=== PATIENT | female | born 1940 | race Caucasian/White ===

== ENCOUNTER 2020-06-23 07:16 | Outpatient (CLI) | payer OTHER, SELFPAY ==
--- NOTE | 2020-07-27 08:34 | WPDHOMESLEEP ---
Sleep Study - Home Unattended Date of Study: 06/23/20 Ordering Provider: Norris Up MD Interpreting Physician: Estrella Agosto MD Home Sleep Study Type: Apnea Link Air Height: 1.65 m Weight: 115.666 kg Body Mass Index: 42.4 Neck Circumference (inches): 17.5 Reserve: 9 Reason for Sleep Study difficulty falling asleep and staying asleep Sleep History Maude Arias is an 79 year-old female with a difficulty falling asleep with frequent awakenings during the night. She must get up out of the bed at 3:00 a.m. frequently. She often sleeps in a recliner. She has excessive daytime sleepiness. There is a family history of sleep issues with her brother having the feeling of wiggly legs at night, and he also sleeps in a recliner. She occasionally snores, although it is rarely loud enough that others complain about it. She does not awaken at night with heartburn, belching or coughing. She does not awaken from sleep feeling short of breath. She frequently has trouble sleeping if she has a cold. She does not gasp for breath at night. She occasionally has breathing problems observed by others. She does not sweat excessively at night are noticed her heart pounding or beating irregularly at night. She frequently falls asleep during the day but never involuntarily or while driving. She does not fall asleep during physical effort. She does not have loss of muscle tone with strong emotion. She occasionally has daytime difficulties due to excessive sleepiness. 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 She does not feel paralyzed on waking or falling asleep. She occasionally has vivid dreamlike scenes upon awakening or falling asleep. She has never for a to go to sleep. She rarely has nightmares. She occasionally remembers her dreams. She frequently has racing thoughts through her mind. She occasionally feels sad or depressed. Very rarely does she feel anxiety. She does not have muscular tension or noticed part of her body jerking. She rarely kicks at night. She does not have crawling and aching feelings in her legs nor does she have any leg pain at night. She does not have morning jaw pain. She occasionally grinds her teeth at night. She occasionally has bothered by pain during the day. She frequently is awakened by pain at night and wakes up feeling stiff in the morning. She does not wake up with sore achy muscles. She frequently wakes up with pain in the neck and spine. Normal bedtime is 12 midnight, falling asleep within 15-30 minutes. She typically wakes 2 or 3 times at night and stays awake for anywhere from 5 minutes to 2 hours. While awake she sits in a recliner, sometimes reads, falls asleep again. She wakes in the morning at 7:00 a.m.. Weekend schedule is the same. She does take naps. Short naps are not refreshing. She only occasionally wakes up feeling refreshed. Habits: Never smoked tobacco. One caffeinated beverage a day. No alcohol or recreational drugs. ON LICENSE OF [facility] Past Medical History Medical History (Updated 07/27/20 @ 08:42 by Estrella Agosto MD) Chronic anticoagulation Chronic diastolic heart failure Chronic fatigue Coronary artery disease Dyslipidemia associated with type 2 diabetes mellitus Hypertension associated with diabetes Surgical History Surgical History (Updated 07/27/20 @ 08:41 by Estrella Agosto MD) Status post coronary artery stent placement Family History Family History Mother Diabetes mellitus Acute myocardial infarction Sibling Family history of cardiovascular disease Family history of cardiac disorder Father Acute myocardial infarction Social History Social History Smoking status: Never smoker Second hand tobacco smoke exposure: No Alcohol intake: never Medications Home Medications Medication Instructions Recorded Confirmed Type aspirin 81 mg tablet,delayed 8
[2020-07-27 08:59] VITALS: BMI 42.4
== END 2020-06-23 07:17 | disposition home or self-care (01) ==
LOC: ANHCSM 07:17
PROVIDERS: PCP Family Medicine; Visit Provider Internal Medicine Cardiovascular Disease
DX: G47.33 Obstructive sleep apnea (adult) (pediatric) (principal)
CPT/HCPCS: 95806

== ENCOUNTER → 2020-08-17 10:07 | Outpatient (REF) | payer OTHER, SELFPAY | LOC: ANHLAB 10:07 | PROVIDERS: PCP Physician Assistant; Visit Provider Nurse Practitioner | DX: C44.329 Squamous cell carcinoma of skin of other parts of face (principal) | CPT/HCPCS: 88305; 88331 ==

== ENCOUNTER 2022-05-05 16:22 | Outpatient (CLI) | payer OTHER, SELFPAY ==
--- NOTE | ~2022-05-05 | XR_ITS ---
XR lumbar spine min 4V, XR sacroiliac joints min 3V 05/05/2022 16:57 Indication: Spondylosis with myelopathy Procedure: 6 views lumbar spine and 5 views of the sacroiliac joints. Comparison: No prior studies for comparison. Findings: There is severe degenerative disc disease at all lumbar levels. There is levoscoliosis. No acute fracture or traumatic malalignment. There is atherosclerosis. There are amorphous calcification s in the pelvis, likely due to fibroid changes. There are symmetric degenerative changes of the sacro iliac joints. No acute fracture or traumatic malalignment. Impression: 1: Severe lumbar spondylosis with levoscoliosis. 2: Moderate bilateral symmetric degenerative changes of the sacroiliac joints. Reviewed, dictated and finalized at location B. Impression: 1: Severe lumbar spondylosis with levoscoliosis. 2: Moderate bilateral symmetric degenerative changes of the sacroiliac joints. Impression: 1: Severe lumbar spondylosis with levoscoliosis. 2: Moderate bilateral symmetric degenerative changes of the sacroiliac joints.
== END 2022-05-05 16:23 | disposition home or self-care (01) ==
LOC: ANHIMG 16:30
PROVIDERS: PCP Family Medicine; Visit Provider Family Medicine
DX: M46.1 Sacroiliitis, not elsewhere classified (principal); M47.816 Spondylosis without myelopathy or radiculopathy, lumbar region; M47.896 Other spondylosis, lumbar region; M53.3 Sacrococcygeal disorders, not elsewhere classified
CPT/HCPCS: 72110; 72202

== ENCOUNTER 2022-10-11 15:02 | Outpatient (CLI) | payer OTHER, SELFPAY ==
--- NOTE | ~2022-10-11 | XR_ITS ---
EXAMINATION: XR chest 2V DATE: 10/11/2022 15:23 INDICATION: This of breath. Nonhealing leg wound. TECHNIQUE: frontal and lateral views of the chest were obtained. COMPARISON: Chest radiograph dated 07/03/17 FINDINGS: Chronic mild elevation the left hemidiaphragm. Unchanged left paracardial fat pad extending between t he apex of the heart and the lateral chest wall. No focal airspace opacities, pulmonary edema, pleura l effusion or pneumothorax. Cardiomegaly. Reverse right total shoulder arthroplasty. IMPRESSION: 1. Cardiomegaly. No acute cardiopulmonary disease. Reviewed, dictated and finalized at location A. [employer]
== END 2022-10-11 15:03 | disposition home or self-care (01) ==
LOC: ANHIMG 15:05
PROVIDERS: PCP Family Medicine; Visit Provider Physician Assistant Medical
DX: R06.09 Other forms of dyspnea (principal); I51.7 Cardiomegaly
CPT/HCPCS: 71046

== ENCOUNTER 2022-10-14 11:50 | Outpatient (RCR) | payer OTHER, SELFPAY ==
[2022-10-14 15:08] VITALS: BMI 46.4
== END 2022-11-21 09:39 | disposition home or self-care (01) ==
LOC: ANHWOC 11:50
PROVIDERS: PCP Family Medicine; Visit Provider Internal Medicine Cardiovascular Disease
DX: S81.802A Unspecified open wound, left lower leg, initial encounter (principal); R60.0 Localized edema
CPT/HCPCS: 99212; G0463

== ENCOUNTER 2022-10-18 09:10 | Outpatient (CLI) | payer OTHER, SELFPAY ==
--- NOTE | ~2022-10-18 | US_ITS ---
Duplex Sonography of the right extremity: Indication: Pain Findings: Sagittal and transverse B-mode images as well as color-flow imaging were performed on the r ight femoral and popliteal veins. B-mode examination was done without and with compression in the tr ansverse plane. There is good visualization of the common femoral, proximal profunda femoral, superf icial femoral, greater saphenous, and popliteal veins. Normal flow was seen on color-flow imaging. N ormal compressibility was demonstrated. Impression: No evidence of deep vein thrombosis involving the right femoral, greater saphenous, superficial femor al, or popliteal veins. Reviewed, dictated and finalized at location M. Impression: No evidence of deep vein thrombosis involving the right femoral, greater saphen ous, superficial femoral, or popliteal veins.
== END 2022-10-18 09:11 | disposition home or self-care (01) ==
PROVIDERS: PCP Family Medicine; Visit Provider Family Medicine
DX: M79.604 Pain in right leg (principal); R60.9 Edema, unspecified
CPT/HCPCS: 93971

== ENCOUNTER 2023-03-23 15:06 | Outpatient (CLI) | payer OTHER, SELFPAY ==
--- NOTE | ~2023-03-23 | US_ITS ---
EXAMINATION: US renal BI DATE: 03/23/2023 15:52 INDICATION: N18.4 - Chronic kidney disease, stage 4 (severe) TECHNIQUE: Multiple grayscale and Doppler ultrasound images of the kidneys were obtained. COMPARISON: None. FINDINGS: The right kidney measures 9.8 x 5.1 x 5.4 cm. The left kidney measures 10.1 x 4.3 x 5.8 cm. The kidne ys demonstrate mildly increased parenchymal echogenicity. 1.7 cm left lower pole simple cyst. There i s no hydronephrosis. The bladder is partially distended with a 7 mm wall. IMPRESSION: Increased renal parenchymal echogenicity as can be seen with medical renal disease. Cystitis versus bladder wall thickening from incomplete distention. Reviewed, dictated and finalized at location K. IMPRESSION: Increased renal parenchymal echogenicity as can be seen with medical renal dise ase. Cystitis versus bladder wall thickening from incomplete distention.
== END 2023-03-23 15:07 | disposition home or self-care (01) ==
PROVIDERS: PCP Family Medicine; Visit Provider Internal Medicine Nephrology
DX: N18.4 Chronic kidney disease, stage 4 (severe) (principal)
CPT/HCPCS: 76775

== ENCOUNTER 2023-03-27 11:40 | Inpatient (IN) | payer OTHER, SELFPAY ==
[2023-03-27] VITALS (14 sets, daily range): BP systolic 106–157; BP diastolic 50–124; PULSE 82–114; RESP 16–28; TEMP 36.4; O2SAT 70–100; BMI 50.9
--- NOTE | ~2023-03-27 | XR_ITS ---
EXAMINATION: XR chest 1V portable DATE: 04/01/2023 08:14 INDICATION: Hypoxia TECHNIQUE: frontal view of the chest was obtained. COMPARISON: Chest radiograph dated 10/11/2022 FINDINGS: Chronic mild elevation of the left hemidiaphragm. Cardiomegaly with prominent left paracardial fat pa d. Increasing pulmonary vascular congestion and mild opacities at the bilateral lower lung zones whic h represent mild pulmonary edema, atelectasis or pneumonia. No pneumothorax. Reverse right total shou lder arthroplasty. IMPRESSION: 1. Increasing opacities in bilateral lower lung zones which could represent mild pulmonary edema, ate lectasis or pneumonia. 2. Cardiomegaly. Reviewed, dictated and finalized at location A. IMPRESSION: 1. Increasing opacities in bilateral lower lung zones which could represent mil d pulmonary edema, atelectasis or pneumonia. 2. Cardiomegaly.
--- NOTE | ~2023-03-27 | XR_ITS ---
EXAMINATION: XR hip LT 2V w AP pelvis INDICATION: Left hip pain TECHNIQUE: AP view the pelvis and two views of the left hip are obtained. COMPARISON: 05/05/2022 FINDINGS: Bone alignment is normal. There is no fracture. Calcified atherosclerosis is noted. There a re also calcified uterine fibroids. There is severe lumbar spondylosis. Phleboliths are noted in the pelvis. There is mild osteoarthritis of the hips. IMPRESSION: 1. No acute osseous abnormality. Reviewed, dictated and finalized at location A.
[2023-03-27 14:58] LABS: Basophils Percent Auto 0.3 % (0.2-1.2); Hematocrit 33.3 % (37.0-47.0); Hemoglobin 10.5 g/dL (12.0-15.0); Immature Granulocyte Absolute 0.13 K/mm3 (0.00-0.031); Immature Granulocyte Percent A 1.1 % (0-0.5); Lymphocytes Absolute Auto 1.23 K/mm3 (0.9-3.2); Lymphocytes Percent Auto 10.4 % (18.3-44.2); Mean Corpuscular HGB Conc 31.5 g/dl (32-36); Mean Corpuscular Hemoglobin 32.2 pg (26-34); Mean Corpuscular Volume 102.1 fl (80-100); Mean Platelet Volume 9.6 fl (7.4-10.4); Monocytes Absolute Auto 1.5 K/mm3 (0.1-0.6); Monocytes Percent Auto 12.4 % (2.6-8.5); Neutrophils Percent Auto 75.8 % (45.5-73.1); Platelet Count Result 242 k/mm3 (150-375); Red Blood Count 3.26 M/mm3 (4.2-5.4); White Blood Count 11.8 K/mm3 (4.5-10.0)
[2023-03-27] MEDS: SODIUM CHLORIDE 0.9% IV 1,000 ML 999 ML IV CONT (15:03)
[2023-03-27 15:09] LABS: INR 1.3; Prothrombin Time 17.1 Seconds (11.1-14.7)
[2023-03-27 15:10] LABS: Partial Thromboplastin Time 27.8 SECONDS (22.3-36.8)
[2023-03-27 15:26] LABS: Alanine Aminotransferase 40 U/L (6-35); Albumin Level 3.9 g/dL (3.5-5.1); Alkaline Phosphatase 58 U/L (38-126); Anion Gap 13 mmol/L (8-16); Aspartate Amino Transferase 110 U/L (14-36); Bilirubin,Total 1.3 mg/dL (0.2-1.3); Blood Urea Nitrogen 70 mg/dL (7-17); Calcium 9.5 mg/dL (8.4-10.2); Carbon Dioxide 23 mmol/L (22-30); Chloride 100 mmol/L (98-107); Creatine Kinase 3084 U/L (30-135); Estimated CRCL calculation 17 ml/min; Estimated Glomerular Filt Rate 16; Glucose 550 mg/dL (65-110); Potassium 5.6 mmol/L (3.4-5.0); Sodium 136 mmol/L (137-145)
--- NOTE | 2023-03-27 15:40 | ED.FALL ---
HPI - Fall General Chief Complaint: Fall Stated Complaint: fall yesterday/resolved hip pain Time Seen by Provider: 03/27/23 14:27 History of Present Illness HPI Narrative: Patient is an 82-year-old female who presents ER after having a fall. She was walking out of her shower last night when she slipped and fell directly onto her buttock. She did not strike her back or head. She did not lose consciousness. Due to her pain she was unable to get herself back up off the floor due to pain in her left hip and laid there for prolonged period until today. Patient reports history of chronic kidney disease and Dr. 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 She is anticoagulated on apixaban. No alleviating factors of her pain. Related Data Home Medications Medication Instructions Recorded Confirmed fenofibrate nanocrystallized 145 145 mg PO DAILY 09/25/19 01/24/23 mg tablet metoprolol succinate 100 mg 100 mg PO DAILY 09/25/19 01/24/23 tablet,extended release 24 hr triamterene 75 1 tablet PO DAILY 09/25/19 01/24/23 mg-hydrochlorothiazide 50 mg tablet multivitamin 1 tablet PO DAILY 08/04/20 01/24/23 nitroglycerin 0.4 mg sublingual 0.4 mg sublingual Q5M PRN 08/04/20 01/24/23 tablet (Nitrostat) furosemide 20 mg tablet 10 mg PO QAM 05/05/22 01/24/23 potassium chloride 10 mEq 5 meq PO .every other day 05/30/22 01/24/23 capsule,extended release diphenhydramine 25 1 tablet PO QHS PRN 06/15/22 01/24/23 mg-acetaminophen 500 mg tablet (Tylenol PM Extra Strength) omega-3 1,050 [id number] 1 cap PO DAILY 06/15/22 01/24/23 oil 1,200 mg capsule linaclotide 145 mcg capsule 145 mcg PO DAILY PRN 01/24/23 01/24/23 (Linzess) Allergies Allergy/AdvReac Type Severity Reaction Status Date / Time dexamethasone Allergy Unknown Unknown Verified 01/24/23 14:37 simvastatin Allergy Unknown Unknown Verified 01/24/23 14:37 Review of Systems Review of Systems: All systems reviewed & are unremarkable except as noted in HPI and below Constitutional: Constitutional: Denies chills, Denies fatigue and Denies fever(s) ENT: Denies nasal congestion and Denies sore throat Cardiovascular: Cardiovascular: Denies chest pain, Denies rapid heart rate and Denies radiating jaw, neck or arm pain Respiratory: Respiratory: Denies cough and Denies dyspnea Gastrointestinal: Gastrointestinal: Denies abdominal pain, Denies nausea and Denies vomiting Musculoskeletal: Musculoskeletal: Reports arthralgias and Denies joint swelling Comments: Buttock pain Integumentary/Breasts: Skin/Breast: Denies erythema and Denies rash Neurologic: Denies syncope, Denies headache(s), Denies focal weakness and Denies numbness [facility] Past Medical History Medical History (Updated 03/27/23 @ 17:58 by Hermilo Marroquin MD) Arthritis of right acromioclavicular joint Basal cell carcinoma (BCC) of right cheek Benign hypertension Chronic anticoagulation Chronic deep vein thrombosis Chronic diastolic heart failure Chronic fatigue Chronic kidney disease, stage 4 (severe) Coronary artery disease COVID-19 PEREZ (dyspnea on exertion) Dyslipidemia associated with type 2 diabetes mellitus History of recurrent deep vein thrombosis (DVT) Hyperlipidemia Hypertension associated with diabetes Insulin dependent type 2 diabetes mellitus, controlled Lumbar spondylosis Obstructive sleep apnea Sacroiliitis 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
[2023-03-27] MEDS: INSULIN HUMAN REGULAR (*BKC) 100 UNITS/ML 10 UNITS IV PUSH (15:57)
[2023-03-27] MEDS: HYDROcodone/acetaminophen (*CRX) 5-325 MG TABLET 1 TAB PO (16:10)
[2023-03-27 16:44] LABS: Glucose Point of Care > 500 mg/dl (65-105)
[2023-03-27] MEDS: SODIUM CHLORIDE 0.9% IV 1,000 ML 150 ML IV CONT (17:07)
--- NOTE | 2023-03-27 20:42 | PM.IMHP ---
H&P: HPI History of Present Illness Date/Time: 03/27/23 20:42 Chief Complaint: fall Narrative: This a 82 year old female patient who sustained a fall last night after getting out of her shower the patient stated that she slipped and fell directly onto her buttocks. The patient was having difficulty getting off the floor this morning and had to scoot on her buttocks to be able to call her neighbor who came over and helped her get dressed. they then called the EMS. The patient stated that she laid on the floor all night long because she was not able to move. The patient does have a history of chronic kidney disease and has been seen by Dr. Leggett. She is on anticoagulation with apixaban. She was given IV fluids and IV insulin times in the emergency room. Her white count 11.8. H&H is 10.5 and 33.3 which appears to be her baseline. Sodium is 136. Potassium 5.6. Creatinine 2.8 which is her baseline and BUN is 70. Her blood sugar was 550 in the emergency room. Hip and pelvis xray?No acute osseous abnormality. total ck is 3084. the patient is being admitted to observation status on 03/27/23. Review of Systems Review of Systems: All systems reviewed & are unremarkable except as noted in HPI and below Constitutional: Constitutional: Reports as per HPI and Reports no additional constitutional complaints Eyes: Eyes: Reports as per HPI and Reports no additional eye complaints ENT: Reports system reviewed and no additional complaints, except as documented and Reports Normal hearing present Cardiovascular: Cardiovascular: Reports no additional cardiovascular complaints Respiratory: Respiratory: Reports no additional respiratory complaints and Reports no additional respiratory complaints Gastrointestinal: Gastrointestinal: Reports as per HPI and Reports no additional gastrointestinal complaints Musculoskeletal: Musculoskeletal: Reports no additional musculoskeletal complaints Integumentary/Breasts: Skin/Breast: Reports system reviewed and no additional complaints, except as docu and Reports as per HPI Neurologic: Reports system reviewed and no additional complaints, except as documented, Reports as per HPI and Reports Normal hearing present Psychiatric: Psychiatric: Reports no additional psychiatric complaints and Reports as per HPI Endocrine: Endocrine: Reports no additional endocrine complaints Hematologic/Lymphatic: Hematologic/Lymphatic: Reports no additional hematologic/lymphatic complaints Allergic/Immunologic: Allergic/Immunologic: Reports no additional allergic/immunologic complaints [facility] Past Medical History Medical History (Updated 03/28/23 @ 00:59 by Michaela Porter NP) Arthritis of right acromioclavicular joint Basal cell carcinoma (BCC) of right cheek Benign hypertension Chronic anticoagulation Chronic deep vein thrombosis Chronic diastolic heart failure Chronic fatigue Chronic kidney disease, stage 4 (severe) Coronary artery disease COVID-19 PEREZ (dyspnea on exertion) Dyslipidemia associated with type 2 diabetes mellitus History of recurrent deep vein thrombosis (DVT) Hyperlipidemia Hypertension associated with diabetes Insulin dependent type 2 diabetes mellitus, controlled Lumbar spondylosis Obstructive sleep apnea No longer uses her cpap Sacroiliitis Squamous cell carcinoma of skin of right bahai Type 2 diabetes mellitus with hyperglycemia, with long-term current use of insulin Type 2 diabetes mellitus with insulin therapy Surgical History Surgical History (Updated 03/28/23 @ 01:01 by Michaela Porter NP) H/O: hysterectomy History of appendectomy History of cardiac catheterization History of knee replacement Bilateral knees History of removal of pigmented skin lesion History of right shoulder replacement Status post coronary artery stent placement Times 3 Family History Family History Mother Diabetes mellitus Acute myocardial inf
--- NOTE | 2023-03-27 21:01 | PC.NURSE ---
patient admitted with fluids infusing to IMU per order
--- NOTE | 2023-03-27 21:09 | ADMGEN ---
This patient, Maude Arias, was admitted to IMU Room 201-01. Patient/family oriented to hospital policies and general routines including ID bracelet, bed and alarms, visiting hours, pain management, procedures, bathroom and other care routines, personal items, smoking policy, room service/diet, and visiting hours. Information on how to activate the Rapid Response Team has been discussed. Patient/Family are encouraged to report perceived risks to care and to ask questions if they do not understand what they are told or what they should do.
[2023-03-27 21:19] LABS: Glucose Point of Care 465 mg/dl (65-105)
[2023-03-27] MEDS: INSULIN GLARGINE (*BKC) 100 UNITS/ML 10 UNITS SUB-Q (22:10)
[2023-03-27] MEDS: INSULIN ASPART (*BKC) 100 UNITS/ML 10 UNITS SUB-Q (22:10)
[2023-03-28] VITALS (16 sets, daily range): BP systolic 113–144; BP diastolic 48–85; PULSE 66–95; RESP 16–22; TEMP 36.1–37; O2SAT 93–100
[2023-03-28] MEDS: SODIUM CHLORIDE 0.9% IV 1,000 ML 150 ML IV CONT ×4 (00:11→23:42)
[2023-03-28 01:27] LABS: Alveolar/Arterial O2 Gradient 41.1 mmHg; Base Excess ABG -3.1 mEq/l (+/-2.0); Fractional Inspired Oxygen 21 %; HCO3 ABG 21.5 mEq/l (22.0-26.0); Oxygen Content ABG 13.6 %vol (16.0-22.0); Oxygen Saturation ABG 92.6 % (95.0-100.0); Oxyhemoglobin 90.8 % THb (90.0-100.0); PCO2 ABG 36.7 mmHg (35.0-45.0); PO2 ABG 64.7 mmHg (80.0-100.0); PO2 FiO2 Ratio Arterial Blood 3.08 %; Site Drawn RIGHT RADIAL; Total Hemoglobin 10.6 g/dL (12.0-18.0); pH ABG 7.385 (7.350-7.450)
[2023-03-28 01:28] LABS: Device ROOM AIR; Modified Allen's Test Pass
[2023-03-28] MEDS: INSULIN ASPART (*BKC) 100 UNITS/ML 10 UNITS SUB-Q (01:46)
[2023-03-28 02:07] LABS: Glucose Point of Care 500 mg/dl (65-105)
[2023-03-28 02:08] LABS: Beta-Hydroxybutyrate/Acetoacetate 0.87 mmol/L (0.02-0.27)
[2023-03-28 02:58] LABS: Glucose Point of Care 486 mg/dl (65-105)
[2023-03-28] MEDS: INSULIN GLARGINE (*BKC) 100 UNITS/ML 40 UNITS SUB-Q (03:30)
[2023-03-28] MEDS: INSULIN ASPART (*BKC) 100 UNITS/ML 15 UNITS SUB-Q (03:31)
[2023-03-28 05:00] LABS: Hematocrit 29.3 % (37.0-47.0); Hemoglobin 9.2 g/dL (12.0-15.0); Mean Corpuscular HGB Conc 31.4 g/dl (32-36); Mean Corpuscular Hemoglobin 32.9 pg (26-34); Mean Corpuscular Volume 104.6 fl (80-100); Mean Platelet Volume 9.8 fl (7.4-10.4); Nucleated Red Blood Cells Perc 0.2 % (0.0-0.2); Platelet Count Result 216 k/mm3 (150-375); Red Cell Distribution Width 13.1 % (11.5-14.5); White Blood Count 9.5 K/mm3 (4.5-10.0)
[2023-03-28 05:01] LABS: Basophils Percent Auto 0.3 % (0.2-1.2); Eosinophils Percent Auto 0.1 % (0-4.4); Lymphocytes Absolute Auto 1.36 K/mm3 (0.9-3.2); Lymphocytes Percent Auto 14.3 % (18.3-44.2); Monocytes Absolute Auto 1.1 K/mm3 (0.1-0.6); Monocytes Percent Auto 11.8 % (2.6-8.5); Neutrophils Absolute Auto 6.9 K/mm3 (1.3-6.7); Neutrophils Percent Auto 72.5 % (45.5-73.1)
[2023-03-28 05:11] LABS: Alanine Aminotransferase 54 U/L (6-35); Albumin Level 3.5 g/dL (3.5-5.1); Alkaline Phosphatase 44 U/L (38-126); Anion Gap 10 mmol/L (8-16); Aspartate Amino Transferase 228 U/L (14-36); Bilirubin,Total 0.8 mg/dL (0.2-1.3); Blood Urea Nitrogen 78 mg/dL (7-17); Calcium 8.3 mg/dL (8.4-10.2); Carbon Dioxide 22 mmol/L (22-30); Chloride 106 mmol/L (98-107); Estimated CRCL calculation 20 ml/min; Estimated Glomerular Filt Rate 18; Glucose 423 mg/dL (65-110); Magnesium 2.3 mg/dL (1.6-2.3); Sodium 138 mmol/L (137-145)
[2023-03-28 05:22] LABS: Hemoglobin A1C 8.2 % (<5.7)
[2023-03-28 05:27] LABS: Creatine Kinase 7542 U/L (30-135)
[2023-03-28 08:19] LABS: Glucose Point of Care 273 mg/dl (65-105)
[2023-03-28] MEDS: INSULIN ASPART (*BKC) 100 UNITS/ML SUB-Q ×3 (09:00→17:05)
[2023-03-28] MEDS: FENOFIBRATE NANOCRYSTALLIZED 145 MG TABLET PO (09:02)
[2023-03-28] MEDS: METOPROLOL SUCCINATE EXT REL 100 MG TABCR PO (09:02)
[2023-03-28] MEDS: OMEGA 3 POLYUNSAT FATTY ACIDS 1 GM CAP 2 GM PO (09:03)
[2023-03-28] MEDS: MULTIVITAMINS THERAPEUTIC TAB (*BKC) 1 TABLET PO (09:03)
[2023-03-28] MEDS: ATORVASTATIN 40 MG TABLET PO (09:03)
[2023-03-28] MEDS: APIXABAN 5 MG TABLET PO ×2 (09:03→20:54)
[2023-03-28] MEDS: traMADol HCL (*CRX) 50 MG TABLET PO (09:04)
[2023-03-28] MEDS: LIDOCAINE 5% PATCH 1 PATCH TRANSDERM (09:27)
[2023-03-28 12:11] LABS: Glucose Point of Care 310 mg/dl (65-105)
[2023-03-28] MEDS: INSULIN ASPART (*BKC) 100 UNITS/ML 6 UNITS SUB-Q (12:20)
[2023-03-28 12:44] LABS: Glucose Point of Care 424 mg/dl (65-105)
--- NOTE | 2023-03-28 14:24 | PM.IMPN ---
Progress Note: A&P Assessment and Plan (1) Rhabdomyolysis: Code(s): M62.82 - Rhabdomyolysis Status: Acute Assessment and Plan: ck 3084 . Please continue to monitor daily. Continue with IV fluids. Monitor renal function (2) Chronic kidney disease, stage 4 (severe): Code(s): N18.4 - Chronic kidney disease, stage 4 (severe) Status: Acute Assessment and Plan: Creatinine 2.8 which is slightly worse than her baseline. She does see the stock cutter here. May consider consulting the stock cutter if no improvement. Continue to monitor renal function daily. Continue with IV fluid Renal ultrasound 03/23/2023Increased renal parenchymal echogenicity as can be seen with medical renal disease. Cystitis versus bladder wall thickening from incomplete distention. Hold diuretics tonight to see if there is any improvement in her renal function. (3) Traumatic ecchymosis of buttock: Code(s): S30.0XXA - Contusion of lower back and pelvis, initial encounter Status: Acute Assessment and Plan: May consider wound care consult if no improvement (4) Type 2 diabetes mellitus with hyperglycemia, with long-term current use of insulin: Code(s): E11.65 - Type 2 diabetes mellitus with hyperglycemia; Z79.4 - USP (current) use of insulin Status: Acute Assessment and Plan: The patient has an extremely high blood sugar at this time. We are covering her with sliding scale insulin. I started her on Lantus as well. Hypoglycemic protocol. check a1c if not done in the last 3 months hold pts own meal time insulins while in hospital (5) History of recurrent deep vein thrombosis (DVT): Code(s): Z86.718 - Personal history of other venous thrombosis and embolism Status: Acute Assessment and Plan: continue with eliquis. renal dose (6) Hyperlipidemia with target LDL less than 100: Code(s): E78.5 - Hyperlipidemia, unspecified Status: Acute Assessment and Plan: atorvastatin Subjective Date/time seen: 03/28/23 14:24 Interval history: 82 year old female patient who sustained a fall last night after getting out of her shower the patient stated that she slipped and fell directly onto her buttocks.? The patient was having difficulty getting off the floor this morning and had to scoot on her buttocks to be able to call her neighbor who came over and helped her get dressed. they then called the EMS.? The patient stated that she laid on the floor all night long because she was not able to move, pt admitted for rhabdomyolysis continue with iv fluids Review of Systems Review of Systems: No specific compliants All systems reviewed & are unremarkable except as noted in HPI and below Exam Const: General: cooperative, healthy appearing, comfortable, no acute distress, well developed, alert, awake, Physically active, average body habitus, well nourished and overweight Nutritional Appearance: average body habitus, well nourished and overweight Orientation/consciousness: oriented to person, oriented to place, oriented to time and patient oriented x3 Limitations: no limitations Objective Data Vital Signs Vital Signs: Vital Signs - 24 hr 03/27/23 14:45 03/27/23 14:46 03/27/23 15:00 Temperature Pulse Rate 90 92 87 Respiratory Rate 22 H 22 H 26 H Blood Pressure 134/97 H Pulse Oximetry 98 99 Oxygen Delivery 03/27/23 15:01 03/27/23 15:15 03/27/23 15:30 Temperature Pulse Rate 90 83 86 Respiratory Rate 16 28 H 24 H Blood Pressure 157/87 H Pulse Oximetry 79 L 80 L Oxygen Delivery 03/27/23 15:31 03/27/23 15:45 03/27/23 16:01 Temperature Pulse Rate 86 82 94 Respiratory Rate 23 H 19 24 H Blood Pressure 144/124 H 106/87 Pulse Oximetry 70 L 98 99 Oxygen Delivery 03/27/23 16:36 03/27/23 21:23 03/27/23 23:25 Temperature 36.4 C 36.4 C Pulse Rate 85 114 H 88 Respiratory Rate 22 H 22 H Blood Pressure 140/64 1
[2023-03-28 16:51] LABS: Glucose Point of Care 233 mg/dl (65-105)
[2023-03-28] MEDS: INSULIN ASPART (*BKC) 100 UNITS/ML 7.5 UNITS SUB-Q (17:04)
--- NOTE | 2023-03-28 17:30 | PM.CNNEP ---
Assessment and Plan Assessment and plan (1) Chronic kidney disease, stage 4 (severe): Code(s): N18.4 - Chronic kidney disease, stage 4 (severe) Status: Chronic Assessment and Plan: baseline creatinine runs ~ 2.0 - 2.5mg/dl in the last year based on outpatient evaluation, due to diabetes, hypertension, vascular disease, and age-related change follows with Dr. 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 Thank you for allowing me to participate in the care of this patient. History of Present Illness Reason for Consult Consult date: 03/28/23 Reason for consult: chronic renal failure and Other (rhabdomyolysis) Chief Complaint Chief complaint: Rhabdomyolysis, CKD, Buttock Contusion, Hyperglyce History of Present Illness Narrative: The patient is an 82-year-old female with a past medical history as outlined below who presented to [facility] Emergency room status post fall. The night before admission, the patient apparently slipped and fell directly on her buttocks. This apparently occurred after she was getting out of her shower. Following the fall, she had significant difficulty getting up and so ended up staying on the floor all night. eventually, the next morning, she was able to ski boot on the floor to get to a phone and called her neighbor for assistance. Her neighbor came over and was able to help her up and got her dressed and subsequently they called EMS. The patient was transferred to the emergency room for further assessment. Workup and evaluation in the emergency room demonstrated the patient to be hemodynamically stable but was somewhat sore from the aforementioned fall. Routine blood test demonstrated labs consistent with her known history of chronic kidney disease and her CBC was unremarkable aside from anemia which is somewhat of a chronic issue. Her potassium was mildly elevated at 5.6 and her CPK was also elevated at 3084. given the constellation of symptoms that led to her presentation to the ER and laboratory findings, she was admitted the hospital for further evaluation and therapy. Since her admission, she has been receiving IV fluids for treatment of her mild rhabdomyolysis and her CPK level actually has risen despite this intervention. Her kidney function has so far remain relatively stable. Renal consultation was requested due to her chronic kidney disease and rhabdomyolysis. The patient normally follows Dr. Mike Leggett for management of her chronic kidney disease with her baseline creatinine normally running around 2.0 - 2.5 mg/dL consistent with chronic kidney disease stage 4. her chronic kidney disease is felt to be secondary to her diabetes, hypertension, vascular disease, and age-related change based on outpatient evaluation. Her renal function also fluctuates to the assess the of diuretic therapy to maintain her volume status. Currently, at the time my visit, the patient is not appear to be in acute distress. Review of Systems Review of Systems: As per HPI. [facility] Past Medical History Medical History (Updated 04/06/23 @ 20:21 by Caitie Gardner
[2023-03-28 20:34] LABS: Glucose Point of Care 211 mg/dl (65-105)
[2023-03-28] MEDS: INSULIN GLARGINE (*BKC) 100 UNITS/ML 44 UNITS SUB-Q (20:54)
[2023-03-28] MEDS: TOLNAFTATE 1% POWDER 45 GM BTL 1 APPLIC TOPICAL (20:56)
[2023-03-28] MEDS: ACETAMINOPHEN 325 MG TABLET 650 MG PO (23:41)
[2023-03-29] VITALS (15 sets, daily range): BP systolic 116–158; BP diastolic 41–93; PULSE 52–99; RESP 18–20; TEMP 36.4–36.8; O2SAT 94–100
[2023-03-29] MEDS: SODIUM CHLORIDE 0.9% IV 1,000 ML 150 ML IV CONT ×3 (06:09→20:10)
[2023-03-29 07:37] LABS: Albumin Level 2.7 g/dL (3.5-5.1); Anion Gap 7 mmol/L (8-16); Blood Urea Nitrogen 73 mg/dL (7-17); Calcium 7.8 mg/dL (8.4-10.2); Carbon Dioxide 23 mmol/L (22-30); Chloride 110 mmol/L (98-107); Creatine Kinase 3086 U/L (30-135); Estimated CRCL calculation 20 ml/min; Estimated Glomerular Filt Rate 18; Glucose 149 mg/dL (65-110); Potassium 4.8 mmol/L (3.4-5.0); Sodium 140 mmol/L (137-145)
[2023-03-29 07:55] LABS: Glucose Point of Care 143 mg/dl (65-105)
[2023-03-29] MEDS: METOPROLOL SUCCINATE EXT REL 100 MG TABCR PO (09:18)
[2023-03-29] MEDS: VERAPAMIL HCL ER 240 MG TABLET.ER PO (09:19)
[2023-03-29] MEDS: ATORVASTATIN 40 MG TABLET PO (09:19)
[2023-03-29] MEDS: MULTIVITAMINS THERAPEUTIC TAB (*BKC) 1 TABLET PO (09:19)
[2023-03-29] MEDS: OMEGA 3 POLYUNSAT FATTY ACIDS 1 GM CAP 2 GM PO (09:19)
[2023-03-29] MEDS: INSULIN ASPART (*BKC) 100 UNITS/ML 6 UNITS SUB-Q ×2 (09:20→11:40)
[2023-03-29] MEDS: FENOFIBRATE NANOCRYSTALLIZED 145 MG TABLET PO (09:20)
[2023-03-29] MEDS: APIXABAN 5 MG TABLET PO ×2 (09:20→20:18)
[2023-03-29] MEDS: TOLNAFTATE 1% POWDER 45 GM BTL 1 APPLIC TOPICAL ×2 (09:20→20:10)
[2023-03-29] MEDS: ACETAMINOPHEN 325 MG TABLET 650 MG PO (09:27)
[2023-03-29] MEDS: ERGOCALCIFEROL 50,000 UNITS CAPSULE 50000 UNITS PO (09:27)
[2023-03-29] MEDS: INSULIN ASPART (*BKC) 100 UNITS/ML SUB-Q ×2 (11:39→16:41)
[2023-03-29 12:16] LABS: Glucose Point of Care 260 mg/dl (65-105)
[2023-03-29] MEDS: traMADol HCL (*CRX) 50 MG TABLET PO (13:06)
--- NOTE | 2023-03-29 13:11 | PM.PNNEP ---
Progress Note: A&P Assessment and Plan (1) Chronic kidney disease, stage 4 (severe): Code(s): N18.4 - Chronic kidney disease, stage 4 (severe) Status: Chronic Assessment and Plan: baseline creatinine runs ~ 2.0 - 2.5mg/dl in the last year based on outpatient evaluation, due to diabetes, hypertension, vascular disease, and age-related change follows with Dr. 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 Subjective Date/time seen: 03/29/23 13:11 Interval history: Following for chronic kidney disease and rhabdomyolysis. CPK levels have once again dropped as noted by AM labs and renal function remains relatively stable; tolerating IVFs at this time with stability in respiratory/volume status; no apparent distress noted. Exam Narrative: General: elderly but WD/WN female in NAD Heart: normal S1 and S2; no rub Lungs: clear to auscultation Abdomen: soft, nontender, nondistended, positive bowel sounds Extremities: no cyanosis or clubbing; no edema Skin: warm and dry Objective Data Vital Signs Vital Signs: Vital Signs Temp Pulse Resp BP Pulse Ox O2 Del Method 03/29/23 13:10 Room Air 03/29/23 12:00 62 03/29/23 12:00 98.2 F 64 18 142/73 H 94 03/29/23 08:00 72 18 99 Room Air 03/29/23 10:00 72 03/29/23 08:00 65 03/29/23 09:18 66 03/29/23 08:35 Room Air 03/29/23 07:56 97.9 F 66 18 122/74 99 03/29/23 06:00 57 L 03/29/23 04:00 97.6 F 58 L 20 127/56 L 95 03/29/23 04:00 Room Air 03/29/23 04:00 63 03/29/23 02:00 56 L 03/29/23 00:00 Room Air 03/29/23 00:00 63 03/29/23 00:00 97.6 F 72 20 158/93 H 96 03/28/23 22:00 66 03/28/23 20:00 Room Air 03/28/23 20:00 66 03/28/23 20:00 97.6 F 72 20 144/73 H 100 Intake/Output Intake/Output: Intake & Output 03/26/23 03/27/23 03/28/23 03/29/23 23:59 23:59 23:59 23:59 Intake Total 1000 4720 2942 Output Total 1500 500 Balance 1000 3220 2442 Meds/Results Medications: Active Medications Generic Name Dose Route Start Last Admin Trade Name Freq PRN Reason Stop Dose Admin Acetaminophen 650 mg 03/27/23 15:52 03/29/23 09:27 Acetaminophen 325 Mg Tablet PO 650 mg Q4H PRN Administration Mild Pain (1-3) or Fever Apixaban 5 mg 03/28/23 09:00 03/29/23 09:20 Apixaban 5 Mg Tablet PO 5 mg Q12HR GARRY Administration Atorvastatin Calcium 40 mg 03/28/23 09:00 03/29/23 09:19 Atorvastatin 40 Mg Tablet PO 40 mg DAILY GARRY Administration Dextrose 12.5 gm 03/28/23 00:49 Dextrose 50% 25 Gm/50 Ml Syringe IV PUSH PRN PRN Hypoglycemia Protocol Ergocalciferol 50,000 units 03/29/23 09:00 03/29/23 09:27 Ergocalciferol 50,000 Units Capsule PO 50,000 units We@0900 GARRY Administration Fenofibrate 145 mg 03/28/23 09:00 03/29/23 09:20 Fenofibrate Nanocrystallized 145 Mg Tablet PO 145 mg DAILY GARRY Administration Fish Oil 2 gm 03/28/23 09:00 03/29/23 09:19 [place] 3 Polyunsat Fatty Acids 1 Gm Cap PO 2 gm QAM GARRY Administration Glucagon 1 mg 03/28/23 00:49 Glucagon For Inj 1 Mg Vial IM PRN PRN Hypo
--- NOTE | 2023-03-29 14:41 | PM.IMPN ---
Progress Note: A&P Assessment and Plan (1) Rhabdomyolysis: Code(s): M62.82 - Rhabdomyolysis Status: Acute Assessment and Plan: ck 3084 . Please continue to monitor daily. Continue with IV fluids. Monitor renal function start PT/ OT (2) Chronic kidney disease, stage 4 (severe): Code(s): N18.4 - Chronic kidney disease, stage 4 (severe) Status: Acute Assessment and Plan: Creatinine 2.8 which is slightly worse than her baseline. She does see the vocational instructor here. May consider consulting the vocational instructor if no improvement. Continue to monitor renal function daily. Continue with IV fluid Renal ultrasound 03/23/2023Increased renal parenchymal echogenicity as can be seen with medical renal disease. Cystitis versus bladder wall thickening from incomplete distention. Hold diuretics tonight to see if there is any improvement in her renal function. (3) Traumatic ecchymosis of buttock: Code(s): S30.0XXA - Contusion of lower back and pelvis, initial encounter Status: Acute Assessment and Plan: May consider wound care consult if no improvement (4) Type 2 diabetes mellitus with hyperglycemia, with long-term current use of insulin: Code(s): E11.65 - Type 2 diabetes mellitus with hyperglycemia; Z79.4 - skilled nursing (current) use of insulin Status: Acute Assessment and Plan: The patient has an extremely high blood sugar at this time. We are covering her with sliding scale insulin. I started her on Lantus as well. Hypoglycemic protocol. check a1c if not done in the last 3 months hold pts own meal time insulins while in hospital (5) History of recurrent deep vein thrombosis (DVT): Code(s): Z86.718 - Personal history of other venous thrombosis and embolism Status: Acute Assessment and Plan: continue with eliquis. renal dose (6) Hyperlipidemia with target LDL less than 100: Code(s): E78.5 - Hyperlipidemia, unspecified Status: Acute Assessment and Plan: atorvastatin Subjective Date/time seen: 03/29/23 14:41 Interval history: 82 year old female patient who sustained a fall last night after getting out of her shower the patient stated that she slipped and fell directly onto her buttocks.? The patient was having difficulty getting off the floor this morning and had to scoot on her buttocks to be able to call her neighbor who came over and helped her get dressed. they then called the EMS.? The patient stated that she laid on the floor all night long because she was not able to move, pt admitted for rhabdomyolysis continue with iv fluids Review of Systems Review of Systems: NO specific complaints feels weak all over Exam Const: General: cooperative, healthy appearing, comfortable, no acute distress, well developed, alert, awake, Physically active, average body habitus, well nourished and overweight Nutritional Appearance: average body habitus, well nourished and overweight Orientation/consciousness: oriented to person, oriented to place, oriented to time and patient oriented x3 Limitations: no limitations HENMT: Head: normal to inspection, No palpable skull fracture present, normocephalic, atraumatic and abrasion Ears: hearing grossly normal bilaterally, external ears normal and TM's normal bilaterally Face/Nose/Sinus: Normal external nose present, Normal nares present and No nasal polyps present Mouth: Yes Normal oral and palatal mucosa present Throat: posterior oropharynx normal Eyes: General: appearance normal, both eyes and all related structures Alignment and Position: alignment normal Periorbital: periorbital findings normal Eyelids: eyelids normal Conjunctivae: conjunctivae normal Sclera: sclerae normal Cornea: corneas normal Pupils: Equal, round and reactive pupils present and Pupil accommodation reflex normal EOM: EOMs intact bilaterally Neck: Neck: normal visual inspection, full ROM, no lymphadenopathy, t
[2023-03-29] MEDS: INSULIN ASPART (*BKC) 100 UNITS/ML 7.5 UNITS SUB-Q (16:41)
[2023-03-29 16:42] LABS: Glucose Point of Care 260 mg/dl (65-105)
[2023-03-29] MEDS: INSULIN GLARGINE (*BKC) 100 UNITS/ML 44 UNITS SUB-Q (20:20)
[2023-03-29 20:35] LABS: Glucose Point of Care 242 mg/dl (65-105)
[2023-03-30] VITALS (11 sets, daily range): BP systolic 104–142; BP diastolic 46–77; PULSE 50–69; RESP 16–20; TEMP 36.2–37.2; O2SAT 94–99
[2023-03-30] MEDS: SODIUM CHLORIDE 0.9% IV 1,000 ML 150 ML IV CONT (02:55)
[2023-03-30 05:23] LABS: Anion Gap 1 mmol/L (8-16); Blood Urea Nitrogen 78 mg/dL (7-17); Calcium 7.2 mg/dL (8.4-10.2); Carbon Dioxide 22 mmol/L (22-30); Chloride 108 mmol/L (98-107); Estimated CRCL calculation 17 ml/min; Estimated Glomerular Filt Rate 15; Glucose 177 mg/dL (65-110); Potassium 4.7 mmol/L (3.4-5.0); Sodium 131 mmol/L (137-145)
[2023-03-30 05:57] LABS: Creatine Kinase 1550 U/L (30-135)
[2023-03-30 07:27] LABS: Glucose Point of Care 153 mg/dl (65-105)
[2023-03-30] MEDS: ATORVASTATIN 40 MG TABLET PO (08:35)
[2023-03-30] MEDS: MULTIVITAMINS THERAPEUTIC TAB (*BKC) 1 TABLET PO (08:35)
[2023-03-30] MEDS: METOPROLOL SUCCINATE EXT REL 100 MG TABCR PO (08:35)
[2023-03-30] MEDS: APIXABAN 5 MG TABLET PO ×2 (08:35→20:45)
[2023-03-30] MEDS: OMEGA 3 POLYUNSAT FATTY ACIDS 1 GM CAP 2 GM PO (08:35)
[2023-03-30] MEDS: INSULIN ASPART (*BKC) 100 UNITS/ML 6 UNITS SUB-Q ×2 (08:36→11:56)
[2023-03-30] MEDS: VERAPAMIL HCL ER 240 MG TABLET.ER PO (08:36)
[2023-03-30] MEDS: TOLNAFTATE 1% POWDER 45 GM BTL 1 APPLIC TOPICAL ×2 (08:36→20:46)
[2023-03-30] MEDS: INSULIN ASPART (*BKC) 100 UNITS/ML SUB-Q ×2 (11:55→16:49)
[2023-03-30 11:56] LABS: Glucose Point of Care 203 mg/dl (65-105)
--- NOTE | 2023-03-30 12:44 | PM.PNNEP ---
Progress Note: A&P Assessment and Plan (1) Chronic kidney disease, stage 4 (severe): Code(s): N18.4 - Chronic kidney disease, stage 4 (severe) Status: Chronic Assessment and Plan: baseline creatinine runs ~ 2.0 - 2.5mg/dl in the last year a tad elevated by AM labs follow trend for now based on outpatient evaluation, due to diabetes, hypertension, vascular disease, and age-related change follows with Dr. Leggett for management of her CKD (2) Rhabdomyolysis: Code(s): M62.82 - Rhabdomyolysis Status: Acute Assessment and Plan: CPK trending down continue IVF within the limits of volume/respiratory status follow repeat CPK levels (3) Hypertension: Code(s): I10 - Essential (primary) hypertension Status: Chronic Assessment and Plan: reasonable control at this time follow trend of hemodynamics (4) Type 2 diabetes mellitus with hyperglycemia, with long-term current use of insulin: Code(s): E11.65 - Type 2 diabetes mellitus with hyperglycemia; Z79.4 - senior living (current) use of insulin Status: Chronic Assessment and Plan: follow accu-checks glycemic control per hospitalists Will continue to follow. Subjective Date/time seen: 03/30/23 12:44 Interval history: Following for chronic kidney disease and rhabdomyolysis. CPK levels downtrending as noted by AM labs but creatinine/renal function a bit worse; continues to make urine and respiratory status seems stable; no other issues/events overnight or earlier this morning. Exam Narrative: General: elderly but WD/WN female in NAD Heart: normal S1 and S2; no rub Lungs: clear to auscultation Abdomen: soft, nontender, nondistended, positive bowel sounds Extremities: no cyanosis or clubbing; no edema Skin: warm and intact Objective Data Vital Signs Vital Signs: Vital Signs Temp Pulse Resp BP Pulse Ox O2 Del Method 03/30/23 12:00 98.7 F 59 L 20 120/54 L 96 Room Air 03/30/23 10:00 61 03/30/23 08:00 94 Room Air 03/30/23 08:00 69 03/30/23 09:14 94 Room Air 03/30/23 08:35 59 L 03/30/23 08:00 98.4 F 57 L 20 142/61 H 98 03/30/23 06:00 52 L 03/30/23 04:00 97.2 F L 53 L 20 122/46 L 95 03/30/23 04:00 Room Air 03/30/23 04:00 55 L 03/30/23 02:00 53 L 03/30/23 00:00 50 L 03/30/23 00:00 Room Air 03/29/23 23:41 97.7 F 99 20 126/41 L 97 03/29/23 22:00 52 L 03/29/23 20:00 55 L 03/29/23 20:00 Room Air 03/29/23 20:00 97.5 F L 55 L 20 116/47 L 100 03/29/23 18:00 56 L Intake/Output Intake/Output: Intake & Output 03/27/23 03/28/23 03/29/23 03/30/23 23:59 23:59 23:59 23:59 Intake Total 1000 4720 3942 3300 Output Total 1500 800 200 Balance 1000 3220 3142 3100 Meds/Results Medications: Active Medications Generic Name Dose Route Start Last Admin Trade Name Freq PRN Reason Stop Dose Admin Acetaminophen 650 mg 03/27/23 15:52 03/29/23 09:27 Acetaminophen 325 Mg Tablet PO 650 mg Q4H PRN Administration Mild Pain (1-3) or Fever Apixaban 5 mg 03/28/23 09:00 03/30/23 08:35 Apixaban 5 Mg Tablet PO 5 mg Q12HR GARRY Administration Atorvastatin Calcium 40 mg 03/28/23 09:00 03/30/23 08:35 Atorvastatin 40 Mg Tablet PO 40 mg DAILY GARRY Administration Dextrose 12.5 gm 03/28/23 00:49 Dextrose 50% 25 Gm/50 Ml Syringe IV PUSH PRN PRN Hypoglycemia Protocol Ergocalciferol 50,000 units 03/29/23 09:00 03/29/23 09:27 Ergocalciferol 50,000 Units Capsule PO 50,000 units We@0900 GARRY Administration Fenofibrate 145 mg 03/28/23 09:00 03/29/23 09:20 Fenofibrate Nanocrystallized 145 Mg Tablet PO 145 mg DAILY GARRY Administration Fish Oil 2 gm 03/28/23 09:00 03/30/23 08:35 [place] 3 Polyunsat Fatty Acids 1 Gm Cap PO 2 gm QAM GARRY Administration Glucagon 1 mg 03/08
[2023-03-30] MEDS: SODIUM CHLORIDE 0.9% IV 1,000 ML 75 ML IV CONT (12:45)
--- NOTE | 2023-03-30 14:24 | PM.IMPN ---
Progress Note: A&P Assessment and Plan (1) Rhabdomyolysis: Code(s): M62.82 - Rhabdomyolysis Status: Acute Assessment and Plan: ck 1000. Please continue to monitor daily. Continue with IV fluids. Monitor renal function start PT/ OT rate decreased today (2) Chronic kidney disease, stage 4 (severe): Code(s): N18.4 - Chronic kidney disease, stage 4 (severe) Status: Acute Assessment and Plan: Creatinine 2.8 which is slightly worse than her baseline. She does see the fur sewer here. May consider consulting the fur sewer if no improvement. Continue to monitor renal function daily. Continue with IV fluid Renal ultrasound 03/23/2023Increased renal parenchymal echogenicity as can be seen with medical renal disease. Cystitis versus bladder wall thickening from incomplete distention. Hold diuretics tonight to see if there is any improvement in her renal function. today creat is 3 (3) Traumatic ecchymosis of buttock: Code(s): S30.0XXA - Contusion of lower back and pelvis, initial encounter Status: Acute Assessment and Plan: May consider wound care consult if no improvement (4) Type 2 diabetes mellitus with hyperglycemia, with long-term current use of insulin: Code(s): E11.65 - Type 2 diabetes mellitus with hyperglycemia; Z79.4 - assisted (current) use of insulin Status: Acute Assessment and Plan: The patient has an extremely high blood sugar at this time. We are covering her with sliding scale insulin. I started her on Lantus as well. Hypoglycemic protocol. check a1c if not done in the last 3 months hold pts own meal time insulins while in hospital (5) History of recurrent deep vein thrombosis (DVT): Code(s): Z86.718 - Personal history of other venous thrombosis and embolism Status: Acute Assessment and Plan: continue with eliquis. renal dose (6) Hyperlipidemia with target LDL less than 100: Code(s): E78.5 - Hyperlipidemia, unspecified Status: Acute Assessment and Plan: atorvastatin Plan Pt will benefit from rehab placement on DC very weak Subjective Date/time seen: 03/30/23 14:24 Interval history: 82 year old female patient who sustained a fall last night after getting out of her shower the patient stated that she slipped and fell directly onto her buttocks.? The patient was having difficulty getting off the floor this morning and had to scoot on her buttocks to be able to call her neighbor who came over and helped her get dressed. they then called the EMS.? The patient stated that she laid on the floor all night long because she was not able to move, pt admitted for rhabdomyolysis continue with iv fluids creat is still over 3 CK over 1000 Review of Systems Review of Systems: NO specific complaints feels weak all over All systems reviewed & are unremarkable except as noted in HPI and below Exam Const: General: cooperative, healthy appearing, comfortable, no acute distress, well developed, alert, awake, Physically active, average body habitus, well nourished and overweight Nutritional Appearance: average body habitus, well nourished and overweight Orientation/consciousness: oriented to person, oriented to place, oriented to time and patient oriented x3 Limitations: no limitations HENMT: Head: normal to inspection, No palpable skull fracture present, normocephalic, atraumatic and abrasion Ears: hearing grossly normal bilaterally, external ears normal and TM's normal bilaterally Face/Nose/Sinus: Normal external nose present, Normal nares present and No nasal polyps present Mouth: Yes Normal oral and palatal mucosa present Throat: posterior oropharynx normal Eyes: General: appearance normal, both eyes and all related structures Alignment and Position: alignment normal Periorbital: periorbital findings normal Eyelids: eyelids normal Conjunctivae: conjunctivae normal Sclera: sclerae normal Cor
[2023-03-30 16:13] LABS: Glucose Point of Care 229 mg/dl (65-105)
[2023-03-30] MEDS: INSULIN ASPART (*BKC) 100 UNITS/ML 7.5 UNITS SUB-Q (16:50)
--- NOTE | 2023-03-30 18:10 | PC.NURSE ---
This patient, Maude Arias, was received from [facility] on 03/30/23 at 1810. Patient/family oriented to unit policies and routines
[2023-03-30] MEDS: INSULIN GLARGINE (*BKC) 100 UNITS/ML 44 UNITS SUB-Q (20:45)
[2023-03-30 20:54] LABS: Glucose Point of Care 228 mg/dl (65-105)
[2023-03-30] MEDS: ACETAMINOPHEN 325 MG TABLET 650 MG PO (23:40)
[2023-03-30] MEDS: SODIUM CHLORIDE 0.9% IV 1,000 ML 100 ML IV CONT (23:43)
[2023-03-31] VITALS (7 sets, daily range): BP systolic 106–152; BP diastolic 50–85; PULSE 55–62; RESP 14–18; TEMP 36.1–36.8; O2SAT 91–97
[2023-03-31] MEDS: MORPHINE SULFATE (*CRX) 4 MG/ML INJ 2 MG IV PUSH (00:52)
[2023-03-31 06:38] LABS: Albumin Level 2.6 g/dL (3.5-5.1); Anion Gap 5 mmol/L (8-16); Blood Urea Nitrogen 80 mg/dL (7-17); Calcium 7.3 mg/dL (8.4-10.2); Carbon Dioxide 21 mmol/L (22-30); Chloride 110 mmol/L (98-107); Creatine Kinase 965 U/L (30-135); Estimated CRCL calculation 19 ml/min; Estimated Glomerular Filt Rate 17; Glucose 78 mg/dL (65-110); Phosphorus 3.8 mg/dL (2.5-4.5); Potassium 4.4 mmol/L (3.4-5.0); Sodium 136 mmol/L (137-145)
[2023-03-31 08:15] LABS: Glucose Point of Care 72 mg/dl (65-105)
--- NOTE | 2023-03-31 08:43 | PM.IMPN ---
Progress Note: A&P Assessment and Plan (1) Rhabdomyolysis: Code(s): M62.82 - Rhabdomyolysis Status: Acute Assessment and Plan: CK 960 today IV fluids decreased at 50 ml per hour Daily BMP (2) Chronic kidney disease, stage 4 (severe): Code(s): N18.4 - Chronic kidney disease, stage 4 (severe) Status: Acute Assessment and Plan: Cr seems to range 2.0-2.3 baseline Cr yesterday was 3.0. 2.7 today after holding diuretics. Continue IVF (3) Traumatic ecchymosis of buttock: Code(s): S30.0XXA - Contusion of lower back and pelvis, initial encounter Status: Acute Assessment and Plan: May consider wound care consult if no improvement (4) Type 2 diabetes mellitus with hyperglycemia, with long-term current use of insulin: Code(s): E11.65 - Type 2 diabetes mellitus with hyperglycemia; Z79.4 - [facility] (current) use of insulin Status: Acute Assessment and Plan: HgbA1c 8.2 -accu checks -sliding scale insulin -started on lantus 44 units HS (5) History of recurrent deep vein thrombosis (DVT): Code(s): Z86.718 - Personal history of other venous thrombosis and embolism Status: Acute Assessment and Plan: continue with eliquis. renal dose (6) Hyperlipidemia with target LDL less than 100: Code(s): E78.5 - Hyperlipidemia, unspecified Status: Acute Assessment and Plan: atorvastatin Plan Pt will benefit from rehab placement on DC very weak. Depending on resolution of CK, Cr, and BUN will drive disposition. Subjective Date/time seen: 03/31/23 08:43 Interval history: HPI obtained from chart, This is an 82 year old female patient who sustained a fall last night after getting out of her shower the patient stated that she slipped and fell directly onto her buttocks.? The patient was having difficulty getting off the floor this morning and had to scoot on her buttocks to be able to call her neighbor who came over and helped her get dressed. they then called the EMS.? The patient stated that she laid on the floor all night long because she was not able to move, pt admitted for rhabdomyolysis continue with iv fluids Interval history: Patient is sitting up eating lunch with her sister at bedside during assessment. Patient says that she feels weak and is having some puffiness in her hands and bilateral upper extremities. She also has some dyspnea with exertion. Will decrease her IV fluids today. CK is down trending appropriately and creatinine is almost back to baseline. Depending on how her labs look tomorrow she may be ready for discharge. Review of Systems Review of Systems: All systems reviewed & are unremarkable except as noted in HPI and below Exam Narrative: General: well-nourished, well-appearing 76-year-old female, sitting up in chair, comfortable, NARD Neuro: awake, alert and oriented x4, speech clear, no focal neuro deficits noted HEENMT: normocephalic, atraumatic, EOMI, sclerae anicteric, moist oral mucosa Respiratory: Clear to auscultation bilaterally with diminished bases, no rhonchi or wheezes, nonlabored breathing at rest Cardio: regular rate, regular rhythm with S1-S2 Abdomen: nondistended, normoactive bowel sounds, soft, nontender to palpation Extremities: trace, non-pitting edema to BUE and hands, no erythema, or tenderness to palpation, DP pulses 2+ bilaterally, Skin: no rashes or lesions, warm and dry, skin discoloration related to venous insufficiency Psych: appropriate mood and affect, judgment and insight intact Objective Data Vital Signs Vital Signs: Vital Signs - 24 hr 03/30/23 09:14 03/30/23 10:00 03/30/23 12:00 Temperature 98.7 F Pulse Rate 61 59 L Respiratory Rate 20 Blood Pressure 120/54 L Pulse Oximetry 94 96 Oxygen Delivery Room Air 03/30/23 12:00 03/30/23 12:00 03/30/23 14:00 Temperature Pulse Rate 60 62 Respiratory Rate Blood Pressure
[2023-03-31] MEDS: OMEGA 3 POLYUNSAT FATTY ACIDS 1 GM CAP 2 GM PO (08:49)
[2023-03-31] MEDS: VERAPAMIL HCL ER 240 MG TABLET.ER PO (08:50)
[2023-03-31] MEDS: TOLNAFTATE 1% POWDER 45 GM BTL 1 APPLIC TOPICAL ×2 (08:50→20:32)
[2023-03-31] MEDS: METOPROLOL SUCCINATE EXT REL 100 MG TABCR PO (08:50)
[2023-03-31] MEDS: ATORVASTATIN 40 MG TABLET PO (08:50)
[2023-03-31] MEDS: APIXABAN 5 MG TABLET PO ×2 (08:50→20:32)
[2023-03-31] MEDS: MULTIVITAMINS THERAPEUTIC TAB (*BKC) 1 TABLET PO (08:50)
[2023-03-31 08:51] LABS: Basophils Percent Auto 0.4 % (0.2-1.2); Eosinophils Absolute Auto 0.4 K/mm3 (0-0.3); Hemoglobin 7.2 g/dL (12.0-15.0); Immature Granulocyte Absolute 0.25 K/mm3 (0.00-0.031); Immature Granulocyte Percent A 2.8 % (0-0.5); Lymphocytes Absolute Auto 2.29 K/mm3 (0.9-3.2); Lymphocytes Percent Auto 25.4 % (18.3-44.2); Mean Corpuscular Hemoglobin 32.4 pg (26-34); Mean Corpuscular Volume 108.1 fl (80-100); Mean Platelet Volume 10.2 fl (7.4-10.4); Monocytes Absolute Auto 1.2 K/mm3 (0.1-0.6); Monocytes Percent Auto 13.1 % (2.6-8.5); Neutrophils Absolute Auto 4.9 K/mm3 (1.3-6.7); Neutrophils Percent Auto 54.3 % (45.5-73.1); Nucleated Red Blood Cells Perc 0.3 % (0.0-0.2); Platelet Count Result 206 k/mm3 (150-375); Red Blood Count 2.22 M/mm3 (4.2-5.4); Red Cell Distribution Width 13.4 % (11.5-14.5)
[2023-03-31 09:14] LABS: Anisocytosis 1+ (NORMAL); Macrocytosis 1+ (NORMAL); Platelet Estimate Adequate (Adequate); Schistocytes None Seen (NORMAL)
[2023-03-31] MEDS: SODIUM CHLORIDE 0.9% IV 1,000 ML 100 ML IV CONT ×2 (11:24→23:54)
[2023-03-31 11:55] LABS: Glucose Point of Care 136 mg/dl (65-105)
--- NOTE | 2023-03-31 14:25 | PM.PNNEP ---
Progress Note: A&P Assessment and Plan (1) Chronic kidney disease, stage 4 (severe): Code(s): N18.4 - Chronic kidney disease, stage 4 (severe) Status: Chronic Assessment and Plan: baseline creatinine runs ~ 2.0 - 2.5mg/dl in the last year creatinine improving follow trend for now based on outpatient evaluation, due to diabetes, hypertension, vascular disease, and age-related change follows with Dr. 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 Subjective Date/time seen: 03/31/23 14:25 Interval history: Following for chronic kidney disease and rhabdomyolysis. CPK levels continue to improve/normalize as does her renal function/creatinine but she is starting to develop edema in her upper extremities and faceso IVFs being weaned off; no acute distress noted; no events overnight or earlier this AM. Exam Narrative: General: elderly but WD/WN female in NAD Heart: normal S1 and S2; no rub Lungs: decreased at bases Abdomen: soft, nontender, nondistended, positive bowel sounds Extremities: no cyanosis or clubbing; trace edema Skin: no rash Objective Data Vital Signs Vital Signs: Vital Signs Temp Pulse Resp BP Pulse Ox O2 Del Method 03/31/23 14:07 97 F L 57 L 18 106/65 97 03/31/23 12:20 97.4 F L 57 L 18 126/57 L 94 03/31/23 08:00 Room Air 03/31/23 08:00 98.2 F 62 18 123/50 L 92 03/31/23 04:00 97.2 F L 61 14 152/85 H 95 03/31/23 00:00 97.4 F L 56 L 18 131/50 L 96 Intake/Output Intake/Output: Intake & Output 03/28/23 03/29/23 03/30/23 03/31/23 23:59 23:59 23:59 23:59 Intake Total 4720 3942 4700 1830 Output Total 1500 800 200 Balance 3220 3142 4500 1830 Meds/Results Medications: Active Medications Generic Name Dose Route Start Last Admin Trade Name Freq PRN Reason Stop Dose Admin Acetaminophen 650 mg 03/27/23 15:52 03/30/23 23:40 Acetaminophen 325 Mg Tablet PO 650 mg Q4H PRN Administration Mild Pain (1-3) or Fever Apixaban 5 mg 03/28/23 09:00 03/31/23 08:50 Apixaban 5 Mg Tablet PO 5 mg Q12HR GARRY Administration Atorvastatin Calcium 40 mg 03/28/23 09:00 03/31/23 08:50 Atorvastatin 40 Mg Tablet PO 40 mg DAILY GARRY Administration Dextrose 12.5 gm 03/28/23 00:49 Dextrose 50% 25 Gm/50 Ml Syringe IV PUSH PRN PRN Hypoglycemia Protocol Ergocalciferol 50,000 units 03/29/23 09:00 03/29/23 09:27 Ergocalciferol 50,000 Units Capsule PO 50,000 units We@0900 GARRY Administration Fenofibrate 145 mg 03/28/23 09:00 03/29/23 09:20 Fenofibrate Nanocrystallized 145 Mg Tablet PO 145 mg DAILY GARRY Administration Fish Oil 2 gm 03/28/23 09:00 03/31/23 08:49 [place] 3 Polyunsat Fatty Acids 1 Gm Cap PO 2 gm QAM GARRY Administration Glucagon 1 mg 03/28/23 00:49 Glucagon For Inj 1 Mg Vial IM PRN PRN Hypoglycemia Protocol Glucose 15 gm 03/28/23 00:49 Glucose Oral Gel 15 Gm Of Glucse In 37.5 Gm Tube PO PRN PRN Hypoglycemia Protocol Sodium Chloride 1,000 mls @ 100 mls/hr 03/27/23 15:55 03/31/23 11:24 Normal Saline Iv IV CONT 100 mls/hr .Q
[2023-03-31 16:30] LABS: Glucose Point of Care 207 mg/dl (65-105)
[2023-03-31] MEDS: INSULIN ASPART (*BKC) 100 UNITS/ML SUB-Q (17:26)
[2023-03-31] MEDS: INSULIN ASPART (*BKC) 100 UNITS/ML 7.5 UNITS SUB-Q (17:27)
[2023-03-31] MEDS: INSULIN GLARGINE (*BKC) 100 UNITS/ML 44 UNITS SUB-Q (20:32)
[2023-03-31] MEDS: traMADol HCL (*CRX) 50 MG TABLET PO (20:50)
[2023-03-31 21:22] LABS: Glucose Point of Care 226 mg/dl (65-105)
[2023-04-01] VITALS (10 sets, daily range): BP systolic 125–185; BP diastolic 49–68; PULSE 53–65; RESP 13–20; TEMP 36.2–36.9; O2SAT 89–97
--- NOTE | 2023-04-01 06:29 | PC.NURSE ---
pt sat at 88-89% while sleeping placed on 2 L NC
[2023-04-01 06:31] LABS: Hematocrit 24.9 % (37.0-47.0); Hemoglobin 7.5 g/dL (12.0-15.0); Mean Corpuscular HGB Conc 30.1 g/dl (32-36); Mean Corpuscular Hemoglobin 31.9 pg (26-34); Mean Platelet Volume 9.3 fl (7.4-10.4); Platelet Count Result 234 k/mm3 (150-375); Red Blood Count 2.35 M/mm3 (4.2-5.4); Red Cell Distribution Width 13.7 % (11.5-14.5); White Blood Count 10.3 K/mm3 (4.5-10.0)
[2023-04-01 06:50] LABS: Alanine Aminotransferase 45 U/L (6-35); Albumin Level 2.9 g/dL (3.5-5.1); Alkaline Phosphatase 45 U/L (38-126); Anion Gap 6 mmol/L (8-16); Aspartate Amino Transferase 63 U/L (14-36); Bilirubin,Total 0.9 mg/dL (0.2-1.3); Blood Urea Nitrogen 79 mg/dL (7-17); Calcium 7.9 mg/dL (8.4-10.2); Carbon Dioxide 20 mmol/L (22-30); Chloride 110 mmol/L (98-107); Creatine Kinase 737 U/L (30-135); Estimated CRCL calculation 20 ml/min; Estimated Glomerular Filt Rate 17; Glucose 68 mg/dL (65-110); Magnesium 2.1 mg/dL (1.6-2.3); Potassium 4.6 mmol/L (3.4-5.0); Sodium 136 mmol/L (137-145)
[2023-04-01 07:45] LABS: Glucose Point of Care 58 mg/dl (65-105)
[2023-04-01 07:59] LABS: Band Neutrophils Percent 2 % (0-6); Basophils Percent Manual 1 % (0-1); Eosinophils Percent Manual 3 % (0-4); Lymphocytes Absolute Manual 2.47 K/mm3 (1.1-4.5); Metamyelocytes Percent 4 %; Monocytes Absolute Manual 1.54 K/mm3 (0.1-0.90); Monocytes Percent Manual 15 % (3-9); Neutrophils Absolute Manual 5.45 K/mm3 (1.7-7.2); Neutrophils Percent Manual 51 % (46-73); Nucleated Red Blood Cells 3 %; Total Cells Counted 100
[2023-04-01 08:00] LABS: Platelet Estimate Adequate (Adequate); Schistocytes None Seen (NORMAL)
[2023-04-01 08:10] LABS: Glucose Point of Care 102 mg/dl (65-105)
--- NOTE | 2023-04-01 08:12 | PM.IMPN ---
Progress Note: A&P Assessment and Plan (1) Rhabdomyolysis: Code(s): M62.82 - Rhabdomyolysis Status: Acute Assessment and Plan: CK 960-->737 today IV fluids stopped Daily BMP (2) Chronic kidney disease, stage 4 (severe): Code(s): N18.4 - Chronic kidney disease, stage 4 (severe) Status: Acute Assessment and Plan: Cr seems to range 2.0-2.3 baseline Cr yesterday was 3.0. 2.7 today after holding diuretics. Now giving IVP lasix 40 mg x 1 for pulmonary edema and new oxygen requirement. 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 She's been on Lantus 44 units for 4 days. If hypoglycemia is recurrent may decrease dose. (4) History of recurrent deep vein thrombosis (DVT): Code(s): Z86.718 - Personal history of other venous thrombosis and embolism Status: Acute Assessment and Plan: continue with eliquis. renal dose (5) Hyperlipidemia with target LDL less than 100: Code(s): E78.5 - Hyperlipidemia, unspecified Status: Acute Assessment and Plan: atorvastatin Plan Pt will benefit from rehab placement on DC very weak. IVF stopped Diuresis with Laxis 40 mg x 1 Wean o2 Subjective Date/time seen: 04/01/23 08:12 Interval history: HPI obtained from chart, This is an 82 year old female patient who sustained a fall last night after getting out of her shower the patient stated that she slipped and fell directly onto her buttocks.? The patient was having difficulty getting off the floor this morning and had to scoot on her buttocks to be able to call her neighbor who came over and helped her get dressed. they then called the EMS.? The patient stated that she laid on the floor all night long because she was not able to move, pt admitted for rhabdomyolysis continue with iv fluids Interval history: 03/31: Patient is sitting up eating lunch with her sister at bedside during assessment. Patient says that she feels weak and is having some puffiness in her hands and bilateral upper extremities. She also has some dyspnea with exertion. Will decrease her IV fluids today. CK is down trending appropriately and creatinine is almost back to baseline. Depending on how her labs look tomorrow she may be ready for discharge. 04/01: Patient required oxygen for desaturation of 88% overnight. Now on 2 L nasal cannula sating 97%. That she has dyspnea with exertion and +2 edema to her upper and lower extremities. IV fluids have been stopped has rhabdo is mostly resolved and now having O2 requirements. Will diurese with IV Lasix 40 mg once today, wean oxygen back to room air, and encourage patient to be up and out of bed to the chair. I spoke with Nephrology and it is likely that her creatinine of 2.7 may be closer to her new baseline and this should not be reason to keep her admitted. Once her edema and respiratory status have improved should be ready to discharge to [facility]. Exam Narrative: General: well-nourished, well-appearing 76-year-old female, sitting up in chair, comfortable, NARD Neuro: awake, alert and oriented x4, speech clear, no focal neuro deficits noted HEENMT: normocephalic, atraumatic, EOMI, sclerae anicteric, moist oral mucosa Respiratory: fine crackles to auscultation bilaterally with diminished bases, no rhonchi or wheezes, nonlabored breathing at rest, dyspnea on exertion. Cardio: regular rate, regular rhythm with S1-S2 Abdomen: nondistended, normoactive bowel sounds, soft, nontender to palpation Extremities: 1-2 pitting edema to BUE and hands, no
[2023-04-01] MEDS: VERAPAMIL HCL ER 240 MG TABLET.ER PO (08:26)
[2023-04-01] MEDS: ATORVASTATIN 40 MG TABLET PO (08:28)
[2023-04-01] MEDS: APIXABAN 5 MG TABLET PO ×2 (08:28→20:41)
[2023-04-01] MEDS: OMEGA 3 POLYUNSAT FATTY ACIDS 1 GM CAP 2 GM PO (08:28)
[2023-04-01] MEDS: MULTIVITAMINS THERAPEUTIC TAB (*BKC) 1 TABLET PO (08:28)
[2023-04-01] MEDS: TOLNAFTATE 1% POWDER 45 GM BTL 1 APPLIC TOPICAL ×2 (08:29→20:42)
[2023-04-01] MEDS: METOPROLOL SUCCINATE EXT REL 100 MG TABCR PO (08:31)
[2023-04-01] MEDS: FUROSEMIDE INJ 40 MG/4 ML VIAL IV PUSH (09:07)
--- NOTE | 2023-04-01 12:00 | PM.PNNEP ---
Progress Note: A&P Assessment and Plan (1) Chronic kidney disease, stage 4 (severe): Code(s): N18.4 - Chronic kidney disease, stage 4 (severe) Status: Chronic Assessment and Plan: baseline creatinine runs ~ 2.0 - 2.5mg/dl in the last year creatinine improving (but may fluctuate due to necessity of IV diuretics) follow trend for now based on outpatient evaluation, due to diabetes, hypertension, vascular disease, and age-related change follows with Dr. Leggett for management of her CKD (2) Rhabdomyolysis: Code(s): M62.82 - Rhabdomyolysis Status: Acute Assessment and Plan: CPK trending down on IVF within the limits of volume/respiratory status wean as tolerated may need to consider IV diuretics follow repeat CPK levels (3) Hypertension: Code(s): I10 - Essential (primary) hypertension Status: Chronic Assessment and Plan: reasonable control at this time follow trend of hemodynamics (4) Type 2 diabetes mellitus with hyperglycemia, with long-term current use of insulin: Code(s): E11.65 - Type 2 diabetes mellitus with hyperglycemia; Z79.4 - FPC (current) use of insulin Status: Chronic Assessment and Plan: follow accu-checks glycemic control per hospitalists Will continue to follow. Subjective Date/time seen: 04/01/23 12:00 Interval history: Following for chronic kidney disease and rhabdomyolysis. IVFs stopped yesterday due to increasing swelling/edema in association with hypoxia -- dose with IV diuretics with improvement in both issues; CPK levels continue to fall; no other issues/events to report. Exam Narrative: General: elderly but WD/WN female in NAD Heart: normal S1 and S2; no rub Lungs: decreased at bases Abdomen: soft, nontender, nondistended, positive bowel sounds Extremities: no cyanosis or clubbing; trace edema Skin: no nodules Objective Data Vital Signs Vital Signs: Vital Signs Temp Pulse Resp BP Pulse Ox O2 Del Method O2 Flow Rate 04/01/23 12:00 97.8 F 59 L 20 150/49 H 97 04/01/23 08:30 97 Nasal Cannula 2 04/01/23 08:50 97 2 04/01/23 08:31 65 04/01/23 08:29 65 14 185/68 H 97 04/01/23 04:00 53 L 16 92 Nasal Cannula 2 04/01/23 03:59 97.7 F 53 L 16 146/54 H 89 L 03/31/23 23:44 97.6 F 55 L 16 128/50 L 91 03/31/23 20:00 97.6 F 56 L 17 140/55 L 96 03/31/23 20:00 97 Room Air Intake/Output Intake/Output: Intake & Output 03/29/23 03/30/23 03/31/23 04/01/23 23:59 23:59 23:59 23:59 Intake Total 3942 4700 3570 1110 Output Total 800 200 500 400 Balance 3142 4500 3070 710 Meds/Results Medications: Active Medications Generic Name Dose Route Start Last Admin Trade Name Freq PRN Reason Stop Dose Admin Acetaminophen 650 mg 03/27/23 15:52 03/30/23 23:40 Acetaminophen 325 Mg Tablet PO 650 mg Q4H PRN Administration Mild Pain (1-3) or Fever Apixaban 5 mg 03/28/23 09:00 04/01/23 08:28 Apixaban 5 Mg Tablet PO 5 mg Q12HR GARRY Administration Atorvastatin Calcium 40 mg 03/28/23 09:00 04/01/23 08:28 Atorvastatin 40 Mg Tablet PO 40 mg DAILY GARRY Administration Dextrose 12.5 gm 03/28/23 00:49 Dextrose 50% 25 Gm/50 Ml Syringe IV PUSH PRN PRN Hypoglycemia Protocol Ergocalciferol 50,000 units 03/29/23 09:00 03/29/23 09:27 Ergocalciferol 50,000 Units Capsule PO 50,000 units We@0900 GARRY Administration Fenofibrate 145 mg 03/28/23 09:00 03/29/23 09:20 Fenofibrate Nanocrystallized 145 Mg Tablet PO 145 mg DAILY GARRY Administration Fish Oil 2 gm 03/28/23 09:00 04/01/23 08:28 [place] 3 Polyunsat Fatty Acids 1 Gm Cap PO 2 gm QAM GARRY Administration Glucagon 1 mg 03/28/23 00:49 Glucagon For Inj 1 Mg Vial IM PRN PRN Hypoglycemia Protocol Glucose 15 gm 03/28/23 00:49 Glucose Oral Gel 15 Gm Of Glucse I
[2023-04-01 12:06] LABS: Glucose Point of Care 158 mg/dl (65-105)
[2023-04-01] MEDS: INSULIN ASPART (*BKC) 100 UNITS/ML 6 UNITS SUB-Q (12:15)
[2023-04-01 16:55] LABS: Glucose Point of Care 186 mg/dl (65-105)
[2023-04-01] MEDS: INSULIN ASPART (*BKC) 100 UNITS/ML 7.5 UNITS SUB-Q (17:10)
[2023-04-01] MEDS: INSULIN GLARGINE (*BKC) 100 UNITS/ML 44 UNITS SUB-Q (20:41)
[2023-04-01 20:53] LABS: Glucose Point of Care 187 mg/dl (65-105)
[2023-04-02] MEDS: traMADol HCL (*CRX) 50 MG TABLET PO (02:28)
[2023-04-02] MEDS: MORPHINE SULFATE (*CRX) 4 MG/ML INJ 2 MG IV PUSH (03:41)
[2023-04-02 04:00] VITALS: BP 131/43; PULSE 55; RESP 13; TEMP 36.1; O2SAT 99
[2023-04-02 05:59] LABS: Hematocrit 24.5 % (37.0-47.0); Hemoglobin 7.4 g/dL (12.0-15.0); Mean Corpuscular HGB Conc 30.2 g/dl (32-36); Mean Corpuscular Hemoglobin 32.3 pg (26-34); Mean Platelet Volume 9.2 fl (7.4-10.4); Platelet Count Result 237 k/mm3 (150-375); Red Blood Count 2.29 M/mm3 (4.2-5.4); Red Cell Distribution Width 13.6 % (11.5-14.5); White Blood Count 10.1 K/mm3 (4.5-10.0)
[2023-04-02 06:11] LABS: Alanine Aminotransferase 38 U/L (6-35); Albumin Level 2.6 g/dL (3.5-5.1); Alkaline Phosphatase 43 U/L (38-126); Anion Gap 1 mmol/L (8-16); Aspartate Amino Transferase 51 U/L (14-36); Bilirubin,Total 0.8 mg/dL (0.2-1.3); Blood Urea Nitrogen 81 mg/dL (7-17); Calcium 8.2 mg/dL (8.4-10.2); Carbon Dioxide 22 mmol/L (22-30); Chloride 109 mmol/L (98-107); Estimated CRCL calculation 21 ml/min; Estimated Glomerular Filt Rate 18; Glucose 63 mg/dL (65-110); Magnesium 2.1 mg/dL (1.6-2.3); Phosphorus 4.8 mg/dL (2.5-4.5); Potassium 4.3 mmol/L (3.4-5.0); Sodium 132 mmol/L (137-145)
--- NOTE | 2023-04-02 06:52 | PM.IMPN ---
Progress Note: A&P Assessment and Plan (1) Rhabdomyolysis: Code(s): M62.82 - Rhabdomyolysis Status: Acute Assessment and Plan: CK 960-->737 today IV fluids stopped due to increased peripheral swelling and new o2 requirement. Gave IV lasix yesterday. Will assess how she looks clinically today. May need to re-dose lasix again. 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 She's been on Lantus 44 units for 4 days. If hypoglycemia is recurrent may decrease dose. (4) History of recurrent deep vein thrombosis (DVT): Code(s): Z86.718 - Personal history of other venous thrombosis and embolism Status: Acute Assessment and Plan: continue with eliquis. renal dose (5) Hyperlipidemia with target LDL less than 100: Code(s): E78.5 - Hyperlipidemia, unspecified Status: Acute Assessment and Plan: atorvastatin Plan Pt will benefit from rehab placement on DC very weak. IVF stopped Diuresis with Laxis 40 mg x 1 Wean o2 Subjective Date/time seen: 04/02/23 06:52 Interval history: HPI obtained from chart, This is an 82 year old female patient who sustained a fall last night after getting out of her shower the patient stated that she slipped and fell directly onto her buttocks.? The patient was having difficulty getting off the floor this morning and had to scoot on her buttocks to be able to call her neighbor who came over and helped her get dressed. they then called the EMS.? The patient stated that she laid on the floor all night long because she was not able to move, pt admitted for rhabdomyolysis continue with iv fluids Interval history: 03/31: Patient is sitting up eating lunch with her sister at bedside during assessment. Patient says that she feels weak and is having some puffiness in her hands and bilateral upper extremities. She also has some dyspnea with exertion. Will decrease her IV fluids today. CK is down trending appropriately and creatinine is almost back to baseline. Depending on how her labs look tomorrow she may be ready for discharge. 04/01: Patient required oxygen for desaturation of 88% overnight. Now on 2 L nasal cannula sating 97%. That she has dyspnea with exertion and +2 edema to her upper and lower extremities. IV fluids have been stopped has rhabdo is mostly resolved and now having O2 requirements. Will diurese with IV Lasix 40 mg once today, wean oxygen back to room air, and encourage patient to be up and out of bed to the chair. I spoke with Nephrology and it is likely that her creatinine of 2.7 may be closer to her new baseline and this should not be reason to keep her admitted. Once her edema and respiratory status have improved should be ready to discharge to [facility]. 04/02: NAEON. Now on room air and she states that her breathing is much improved after the lasix. She denies dyspnea on exertion. Her lung sounds are clear, slightly diminished in the bases. She does still have some hand puffiness but I expect that to resolve in time. She is medically ready for d/c to [facility] but we are awaiting insurance approval. Review of Systems Review of Systems: All systems reviewed & are unremarkable except as noted in HPI and below Exam Narrative: General: well-nourish
[2023-04-02 07:35] LABS: Basophilic Stippling 1+ (NORMAL); Eosinophils Percent Manual 1 % (0-4); Lymphocytes Absolute Manual 2.52 K/mm3 (1.1-4.5); Metamyelocytes Percent 4 %; Monocytes Absolute Manual 1.41 K/mm3 (0.1-0.90); Monocytes Percent Manual 14 % (3-9); Neutrophils Percent Manual 56 % (46-73); Nucleated Red Blood Cells 2 %; Platelet Estimate Adequate (Adequate); Schistocytes None Seen (NORMAL); Total Cells Counted 100
[2023-04-02 07:36] LABS: Polychromasia 1+ (NORMAL)
[2023-04-02 08:00] VITALS: BP 136/63; PULSE 63; RESP 12; TEMP 36.6; O2SAT 98
[2023-04-02 08:23] LABS: Glucose Point of Care 51 mg/dl (65-105)
[2023-04-02 08:30] VITALS: O2SAT 92
[2023-04-02 08:57] LABS: Glucose Point of Care 113 mg/dl (65-105)
--- NOTE | 2023-04-02 09:04 | PC.NURSE ---
This nurse called Saba dumont to inform her that pt bs was 51 at 0730. Gave pt two apple juices and pt ate her whole tray. Recheck bs at 0900 and pt bs now at 113. This nurse was told to hold the 6 units of novolog and this nurse did not give the sliding scale insulin as well. Will monitor at this time and await orders.
[2023-04-02 09:11] VITALS: PULSE 66
[2023-04-02] MEDS: MULTIVITAMINS THERAPEUTIC TAB (*BKC) 1 TABLET PO (09:11)
[2023-04-02] MEDS: METOPROLOL SUCCINATE EXT REL 100 MG TABCR PO (09:11)
[2023-04-02] MEDS: ATORVASTATIN 40 MG TABLET PO (09:11)
[2023-04-02] MEDS: VERAPAMIL HCL ER 240 MG TABLET.ER PO (09:12)
[2023-04-02] MEDS: OMEGA 3 POLYUNSAT FATTY ACIDS 1 GM CAP 2 GM PO (09:12)
[2023-04-02] MEDS: APIXABAN 5 MG TABLET PO (09:12)
[2023-04-02] MEDS: TOLNAFTATE 1% POWDER 45 GM BTL 1 APPLIC TOPICAL (09:13)
--- NOTE | 2023-04-02 11:08 | PM.DS ---
DS: Admitting Diagnosis Discharge Date MondayApril 02 Admitting Diagnosis fall, rhabdomyolysis DS: Discharge Diagnosis Discharge Diagnosis (1) Rhabdomyolysis: Code(s): M62.82 - Rhabdomyolysis Status: Acute Assessment and Plan: CK 960-->737 today IV fluids stopped due to increased peripheral swelling and new o2 requirement. Gave IV lasix yesterday. Will assess how she looks clinically today. May need to re-dose lasix again. Daily BMP (2) Chronic kidney disease, stage 4 (severe): Code(s): N18.4 - Chronic kidney disease, stage 4 (severe) Status: Chronic Assessment and Plan: Cr seems to range 2.0-2.3 baseline Cr yesterday was 3.0., 2.5 today Consult placed for nephrology, appreciate recommendations----okay with d/c from a renal stand point (3) Type 2 diabetes mellitus with hyperglycemia, with long-term current use of insulin: Code(s): E11.65 - Type 2 diabetes mellitus with hyperglycemia; Z79.4 - USP (current) use of insulin Status: Acute Assessment and Plan: HgbA1c 8.2 -accu checks -sliding scale insulin -started on lantus 44 units HS -one episode of hypoglyemia this morning, 58. She's been on Lantus 44 units for 4 days. If hypoglycemia is recurrent may decrease dose. (4) History of recurrent deep vein thrombosis (DVT): Code(s): Z86.718 - Personal history of other venous thrombosis and embolism Status: Acute Assessment and Plan: continue with eliquis. renal dose (5) Hyperlipidemia with target LDL less than 100: Code(s): E78.5 - Hyperlipidemia, unspecified Status: Acute Assessment and Plan: atorvastatin Plan Pt will benefit from rehab placement on DC very weak. IVF stopped Diuresis with Laxis 40 mg x 1 Wean o2 DS: Summary Hospital Course Hospital Course: This is an 82 year old female patient who sustained a fall last night after getting out of her shower the patient stated that she slipped and fell directly onto her buttocks.? The patient was having difficulty getting off the floor this morning and had to scoot on her buttocks to be able to call her neighbor who came over and helped her get dressed. they then called the EMS.? The patient stated that she laid on the floor all night long because she was not able to move, pt admitted for rhabdomyolysis continue with iv fluids Interval history:? 03/31: Patient is sitting up eating lunch with her sister at bedside during assessment.? Patient says that she feels weak and is having some puffiness in her hands and bilateral upper extremities.? She also has some dyspnea with exertion.? Will decrease her IV fluids today.? CK is down trending appropriately and creatinine is almost back to baseline. Depending on how her labs look tomorrow she may be ready for discharge. 04/01:? Patient required oxygen for desaturation of 88% overnight.? Now on 2 L nasal cannula sating 97%.? That she has dyspnea with exertion and +2 edema to her upper and lower extremities.? IV fluids have been stopped has rhabdo is mostly resolved and now having O2 requirements.? Will diurese with IV Lasix 40 mg once today, wean oxygen back to room air, and encourage patient to be up and out of bed to the chair.? I spoke with Nephrology and it is likely that her creatinine of 2.7 may be closer to her new baseline and this should not be reason to keep her admitted.? Once her edema and respiratory status have improved should be ready to discharge to [facility]. 04/02: STEVENEON. Now on room air and she states that her breathing is much improved after the lasix. She denies dyspnea on exertion. Her lung sounds are clear, slightly diminished in the bases. She does still have some hand puffiness but I expect that to resolve in time. She is medically ready for d/c to [place] but we are awaiting insurance approval. Status at Discharge Cognitive/behavioral status at discharge: A&O x4, pleasant Time Spent with P
[2023-04-02 11:42] LABS: Glucose Point of Care 116 mg/dl (65-105)
[2023-04-02] MEDS: INSULIN ASPART (*BKC) 100 UNITS/ML 6 UNITS SUB-Q (11:47)
== END 2023-04-02 13:47 | DRG 565 ==
LOC: ANHED 17:58 → ANHIMU 20:18 → ANH3MEDSUR 03-30 18:00
PROVIDERS: Family Medicine; Internal Medicine Nephrology; Nurse Practitioner; Admitting Provider Hospitalist; Emergency Provider Emergency Medicine; PCP Family Medicine; Visit Provider Nurse Practitioner Acute Care
DX: T79.6XXA Traumatic ischemia of muscle, initial encounter (principal); I13.0 Hypertensive heart and chronic kidney disease with heart failure and stage 1 through stage 4 chronic kidney disease, or unspecified chronic kidney disease; N18.4 Chronic kidney disease, stage 4 (severe); I50.32 Chronic diastolic (congestive) heart failure; W01.0XXA Fall on same level from slipping, tripping and stumbling without subsequent striking against object, initial encounter; S30.0XXA Contusion of lower back and pelvis, initial encounter; E11.22 Type 2 diabetes mellitus with diabetic chronic kidney disease; I25.10 Atherosclerotic heart disease of native coronary artery without angina pectoris; E78.5 Hyperlipidemia, unspecified; G47.33 Obstructive sleep apnea (adult) (pediatric); M47.816 Spondylosis without myelopathy or radiculopathy, lumbar region; Z96.611 Presence of right artificial shoulder joint; Z96.659 Presence of unspecified artificial knee joint; Z85.828 Personal history of other malignant neoplasm of skin; Z86.16 Personal history of COVID-19; Z86.718 Personal history of other venous thrombosis and embolism; Z79.01 Long term (current) use of anticoagulants; Z95.5 Presence of coronary angioplasty implant and graft; Z79.4 Long term (current) use of insulin
CPT/HCPCS: 36415; 36600; 71045; 73502; 80048; 80053; 80069; 82010; 82550; 82805; 82948; 83036; 83735; 84100; 84443; 85025; 85610; 85730; 96361; 96374; 97110; 97161; 97530; 99285; A9270; G0378; J1815; J1940; J2270; J7030

== ENCOUNTER 2023-04-06 11:43 | Inpatient (IN) | payer OTHER, SELFPAY ==
[2023-04-06] VITALS (27 sets, daily range): BP systolic 123–154; BP diastolic 37–93; PULSE 53–120; RESP 16–24; TEMP 36–36.6; O2SAT 97–100; BMI 55.7
--- NOTE | ~2023-04-06 | CT_ITS ---
EXAMINATION: CT brain wo con INDICATION: Acute neurologic change, unequal pupils COMPARISON: None TECHNIQUE: Standard unenhanced head CT. The dose-length product (DLP) was 681.00 mGy-cm. The mA was a djusted according to patient size. Iterative reconstruction technique was employed. FINDINGS: Motion artifact slightly limits the examination. No acute intraparenchymal hemorrhage. No e vidence of mass lesion. No evidence of acute infarction. There is moderate periventricular and subcor tical hypodensity probably related to small vessel ischemic disease. There is moderate prominence of the sulci and ventricles related to cerebral atrophy. Intracranial calcified cerebral atherosclerosis is noted. No extra-axial collections. No mass effect or midline shift. The orbits and soft tissues a re unremarkable. There is chronic right sphenoid sinusitis. IMPRESSION: 1. No acute intracranial abnormality. 2. Age related findings. Reviewed, dictated and finalized at location A.
--- NOTE | ~2023-04-06 | XR_ITS ---
EXAMINATION: XR chest 1V portable INDICATION: Shortness of breath TECHNIQUE: Portable AP chest at 1401 hours COMPARISON: 04/06/2023 FINDINGS: Cardiomegaly is noted. There are diffuse interstitial opacities with worsening on the right . Small pleural effusions are stable. There are unchanged airspace opacities of the left lung base. N o pneumothorax is identified. Changes of right shoulder arthroplasty are noted. IMPRESSION: 1. Cardiomegaly with mild pulmonary edema, worsened on the right. 2. Left basilar airspace opacity, consistent with atelectasis versus pneumonia. Reviewed, dictated and finalized at location A.
--- NOTE | ~2023-04-06 | US_ITS ---
Duplex Sonography of the left upper extremity: Indication: Pain, erythema Sagittal and transverse B-mode images as well as color-flow imaging were performed on the left human resources intern al jugular, subclavian, axillary, brachial, basilic, cephalic, radial, and ulnar veins. B-mode exami nation was done without and with compression in the transverse plane. There is good visualization of the internal jugular, subclavian, axillary, brachial, basilic, cephalic, radial, and ulnar veins. No rmal flow was seen on color-flow imaging. Normal compressibility was demonstrated. Impression: No evidence of deep vein thrombosis involving the left upper extremity. Reviewed, dictated and finalized at location . Impression: No evidence of deep vein thrombosis involving the left upper extrem ity.
--- NOTE | ~2023-04-06 | XR_ITS ---
Portable chest x-ray Comparison: 04/12/2023 Clinical History: Respiratory failure Findings: Endotracheal tube, NG tube, and right IJ line are in satisfactory positions. There is mild pulmonary edema pattern with minimal pleural effusions. Cardiomediastinal silhouette is stable. Rig ht shoulder arthroplasty present. Impression: Mild pulmonary edema pattern with minimal pleural effusions. Support tubes, as above. Reviewed, dictated and finalized at [facility]. Impression: Mild pulmonary edema pattern with minimal pleural effusions. Support tubes, as above.
--- NOTE | ~2023-04-06 | XR_ITS ---
EXAMINATION: XR chest 1V portable INDICATION: Repositioned right internal jugular catheter TECHNIQUE: Portable AP chest at 1206 hours COMPARISON: 1109 hours FINDINGS: The repositioned right internal jugular central venous catheter ends with its tip in the di stal superior vena cava. The endotracheal tube ends approximately 2.1 cm above the chris. The nasoga stric tube is followed as far as the stomach. Its tip is beyond the inferior margin of the radiograph . Diffuse interstitial and airspace opacities persist with slight worsening on the left. Cardiomegaly is noted. There are small pleural effusions. No pneumothorax is identified. IMPRESSION: 1. Repositioned right internal jugular catheter ending in the distal superior vena cava. 2. Diffuse lung disease with interval worsening on the left, consistent with atelectasis versus pneum onia versus pulmonary edema. 3. Cardiomegaly. Reviewed, dictated and finalized at location A. IMPRESSION: 1. Repositioned right internal jugular catheter ending in the distal superior v vannessa cava. 2. Diffuse lung disease with interval worsening on the left, consistent with at electasis versus pneumonia versus pulmonary edema. 3. Cardiomegaly.
--- NOTE | ~2023-04-06 | US_ITS ---
EXAMINATION: US venous doppler UE RT DATE: 04/11/2023 09:51 INDICATION: Right upper limb swelling TECHNIQUE: Grayscale images without and with compression and Doppler images of the right upper extrem ity veins were obtained. COMPARISON: None. FINDINGS: Noncompressible thrombosis of the right cephalic vein extending from the proximal forearm at the ante cubital fossa to the mid upper arm. The right internal jugular vein, subclavian vein, axillary vein, brachial vein, basilic vein, radial vein, and ulnar vein are patent. IMPRESSION: 1. Right cephalic vein thrombosis extending from the proximal forearm to the mid upper arm. Findings were discussed with Funmilayo Aguayo, the nurse caring for the patient, at 9:55 AM. Reviewed, dictated and finalized at location A. IMPRESSION: 1. Right cephalic vein thrombosis extending from the proximal forearm to the mi d upper arm. Findings were discussed with Funmilayo Aguayo, the nurse caring for the patient, at 9:55 AM.
--- NOTE | ~2023-04-06 | XR_ITS ---
EXAMINATION: XR_KUBGTUBINS_CR INDICATION: Nasogastric tube placement TECHNIQUE: Portable AP abdomen at 1108 hours COMPARISON: None available FINDINGS: The nasogastric tube is in the stomach. Cardiomegaly is noted. There are minimal airspace o pacities of the visualized lung bases. Severe thoracolumbar spondylosis is noted. IMPRESSION: 1. Nasogastric tube in the stomach. Reviewed, dictated and finalized at location A.
--- NOTE | ~2023-04-06 | CT_ITS ---
EXAMINATION: CT chest abdomen pelvis wo con DATE: 04/10/2023 09:42 INDICATION: Shortness of breath TECHNIQUE: Transaxial computed tomographic images of the chest, abdomen, and pelvis were obtained wit hout intravenous contrast. The dose-length product (DLP) was 1987.20 mGy-cm. Automated exposure contr ol and iterative reconstruction technique were employed. COMPARISON: 11/13/2019 FINDINGS: CHEST CT: Respiratory motion artifact slightly limits the examination. There are dependent airspace opacities o f the lungs. There are small pleural effusions. Examination is probably captured in the expiratory ph ase. The heart size is normal. Calcified coronary artery atherosclerosis is noted. No pathologically enlarged thoracic lymph nodes are identified. There is severe thoracic spondylosis. ABDOMEN/PELVIS CT: Punctate calcifications in an otherwise normal spleen likely represent healed granulomatous disease. The liver, pancreas, gallbladder, and adrenal glands are normal. The right kidney is unremarkable. Th ere is a 3.0 cm cyst of the left kidney lower pole.. No pathologically enlarged abdominal or pelvic l ymph nodes are identified. There is calcified atherosclerosis of the aorta and many of the other sepideh tamir. No free intraperitoneal gas or evidence of bowel obstruction. The bladder is decompressed by Fo magdiel catheter. There are calcified uterine fibroids. There is severe lumbar spondylosis. A surgical st aple line is present in the rectum. There is an approximately 12.1 x 7.6 cm hyperdense area in the romero bcutaneous tissues of the right pelvis posteriorly and overlying the left hip. Diffuse anasarca is no lizbet. IMPRESSION: 1. Dependent airspace opacities of the lungs, consistent with atelectasis versus pneumonia. 2. Small pleural effusions. 3. Large hypodense area in the subcutaneous tissues of the right pelvis posteriorly and overlying the left hip which could reflect a soft tissue hematoma. Clinically correlate. Reviewed, dictated and finalized at location A. IMPRESSION: 1. Dependent airspace opacities of the lungs, consistent with atelectasis versu s pneumonia. 2. Small pleural effusions. 3. Large hypodense area in the subcutaneous tissues of the right pelvis posteri neri and overlying the left hip which could reflect a soft tissue hematoma. Cli nically correlate.
--- NOTE | ~2023-04-06 | XR_ITS ---
Clinical Indication: Shortness of breath AP and lateral views of the chest: Comparison: 04/01/2023 Findings: There are small bilateral pleural effusions with mild pulmonary edema at the lung bases.. Cardiomediastinal silhouette is within normal limits. Right shoulder arthroplasty noted. Impression: Mild bibasilar pulmonary edema small bilateral pleural effusions. Reviewed, dictated and finalized at [facility]. Impression: Mild bibasilar pulmonary edema small bilateral pleural effusions.
--- NOTE | ~2023-04-06 | XR_ITS ---
EXAMINATION: XR chest ET placement INDICATION: Respiratory failure TECHNIQUE: Portable AP chest at 1109 hours COMPARISON: 04/09/2023 FINDINGS: The endotracheal tube ends approximately 3.5 cm above the chris. The nasogastric tube is f ollowed as far as the stomach. Its tip is beyond the inferior margin of the radiograph. A right inter nal jugular catheter is been inserted which ends with its tip in the proximal right atrium. Cardiomeg alberta is noted. Diffuse interstitial opacities persist without significant change. There are small pleu ral effusions. There is no pneumothorax. Changes of right shoulder arthroplasty are noted. IMPRESSION: 1. Endotracheal tube approximately 3.5 cm above the chris. 2. Nasogastric tube followed as far as the stomach. 3. Right internal jugular catheter insertion with its tip ending in the proximal right atrium. Otherw ise, no significant change. Reviewed, dictated and finalized at location A. IMPRESSION: 1. Endotracheal tube approximately 3.5 cm above the chris. 2. Nasogastric tube followed as far as the stomach. 3. Right internal jugular catheter insertion with its tip ending in the proxima l right atrium. Otherwise, no significant change.
--- NOTE | ~2023-04-06 | XR_ITS ---
EXAMINATION: XR chest 1V portable DATE: 04/12/2023 05:32 INDICATION: Respiratory failure. TECHNIQUE: A single frontal view of the chest was obtained. COMPARISON: Chest single view 04/11/2023, chest CT 04/10/2023 FINDINGS: There are moderate-sized pleural effusions. There are airspace opacities in all lung zones with a basilar predominance. No pneumothorax. Cardiomegaly is noted. The endotracheal tube tip is 4.1 cm above the chris. The nasogastric tube tip is beyond the inferior margin of the radiograph, but a t least to the stomach. There is a right shoulder arthroplasty. IMPRESSION: 1. Worsened moderate-sized pleural effusions. 2. Worsened diffuse lung disease with a basilar predominance, consistent with atelectasis versus pneu monia versus pulmonary edema. 3. Cardiomegaly. Reviewed, dictated and finalized at location A. IMPRESSION: 1. Worsened moderate-sized pleural effusions. 2. Worsened diffuse lung disease with a basilar predominance, consistent with a telectasis versus pneumonia versus pulmonary edema. 3. Cardiomegaly.
--- NOTE | ~2023-04-06 | US_ITS ---
EXAMINATION: US venous doppler [facility] DATE: 04/11/2023 09:51 INDICATION: Bilateral lower limb edema TECHNIQUE: Faith scale images without and with compression and Doppler images of the bilateral lower e xtremity veins were obtained. COMPARISON: 10/18/2022 FINDINGS: The right common femoral vein, profunda femoral vein, femoral vein, popliteal vein, peroneal trunk, p osterior tibial veins, and greater saphenous vein are patent. The left common femoral vein, profunda femoral vein, femoral vein, popliteal vein, peroneal trunk, po sterior tibial veins, and greater saphenous vein are patent. IMPRESSION: 1. Patent bilateral lower extremity veins. No evidence of deep venous thrombosis. Reviewed, dictated and finalized at location L. IMPRESSION: 1. Patent bilateral lower extremity veins. No evidence of deep venous thrombosi s.
--- NOTE | ~2023-04-06 | XR_ITS ---
EXAMINATION: XR chest 1V portable DATE: 04/11/2023 05:27 INDICATION: Respiratory failure. TECHNIQUE: A single frontal view of the chest was obtained. COMPARISON: Chest single view 04/10/2023, chest CT 04/10/2023 FINDINGS: There are small pleural effusions. There are airspace opacities at the lung bases. No pneum othorax. Cardiomegaly is noted. The endotracheal tube tip is 3.9 cm above the chris. The nasogastric tube tip is beyond the inferior margin of the radiograph, but at least to the stomach. A right inter nal jugular central venous catheter is seen with tip in the superior vena cava. There is a right shou lder arthroplasty. IMPRESSION: 1. Stable small pleural effusions. 2. Stable airspace opacities at the lung bases, consistent with atelectasis versus pneumonia. 3. Cardiomegaly. Reviewed, dictated and finalized at location A. IMPRESSION: 1. Stable small pleural effusions. 2. Stable airspace opacities at the lung bases, consistent with atelectasis boubacar lisa pneumonia. 3. Cardiomegaly.
--- NOTE | 2023-04-06 11:45 | ECG_ITS ---
Measurements Intervals [place] Rate: 69 P: PA: 0 QRS: -6 QRSD: 96 T: 64 QT: 368 QTc: 396 Interpretive Statements ATRIAL FIBRILLATION POOR R-WAVE PROGRESSION, CANNOT EXCLUDE PREVIOUS ANTERIOR MT ABNORMAL ECG NO PREVIOUS ECG AVAILABLE FOR COMPARISON Electronically Signed On 04-06-2023 14:35:35 CDT by Esequiel Pal M.D.
[2023-04-06 12:13] LABS: Basophils Absolute Auto 0.1 K/mm3 (0.0-0.1); Basophils Percent Auto 0.6 % (0.2-1.2); Eosinophils Absolute Auto 0.4 K/mm3 (0-0.3); Eosinophils Percent Auto 5.2 % (0-4.4); Hematocrit 26.9 % (37.0-47.0); Hemoglobin 8.1 g/dL (12.0-15.0); Immature Granulocyte Percent A 4.8 % (0-0.5); Lymphocytes Absolute Auto 1.42 K/mm3 (0.9-3.2); Mean Corpuscular HGB Conc 30.1 g/dl (32-36); Mean Corpuscular Hemoglobin 33.1 pg (26-34); Mean Corpuscular Volume 109.8 fl (80-100); Mean Platelet Volume 9.5 fl (7.4-10.4); Monocytes Absolute Auto 0.7 K/mm3 (0.1-0.6); Monocytes Percent Auto 8.9 % (2.6-8.5); Neutrophils Absolute Auto 5.3 K/mm3 (1.3-6.7); Neutrophils Percent Auto 63.5 % (45.5-73.1); Nucleated Red Blood Cells Perc 0.2 % (0.0-0.2); Platelet Count Result 295 k/mm3 (150-375); Red Blood Count 2.45 M/mm3 (4.2-5.4); Red Cell Distribution Width 15.1 % (11.5-14.5); White Blood Count 8.3 K/mm3 (4.5-10.0)
[2023-04-06 12:24] LABS: Alanine Aminotransferase 30 U/L (6-35); Albumin Level 3.1 g/dL (3.5-5.1); Alkaline Phosphatase 74 U/L (38-126); Anion Gap 5 mmol/L (8-16); Aspartate Amino Transferase 31 U/L (14-36); Basophilic Stippling 1+ (NORMAL); Bilirubin,Total 0.9 mg/dL (0.2-1.3); Blood Urea Nitrogen 71 mg/dL (7-17); Carbon Dioxide 28 mmol/L (22-30); Chloride 105 mmol/L (98-107); Estimated CRCL calculation 26 ml/min; Estimated Glomerular Filt Rate 24; Glucose 379 mg/dL (65-110); Macrocytosis 2+ (NORMAL); Platelet Estimate Adequate (Adequate); Polychromasia 1+ (NORMAL); Potassium 5.5 mmol/L (3.4-5.0); Schistocytes None Seen (NORMAL); Sodium 138 mmol/L (137-145)
[2023-04-06 12:32] LABS: NT Pro B Type Natriuretic Pept 2330 pg/mL (19.9-100)
[2023-04-06 14:39] LABS: Potassium 5.8 mmol/L (3.4-5.0)
--- NOTE | 2023-04-06 14:50 | ED.SOB ---
HPI - SOB/Dyspnea General Chief Complaint: Shortness of Breath/Dyspnea Stated Complaint: SOB Time Seen by Provider: 04/06/23 14:07 Source: patient Limitations: no limitations History of Present Illness HPI Narrative: Patient presents to the emergency department from an assisted living facility complaining of bilateral lower extremity swelling has been progressively worsening with associated difficulty in breathing that is also progressively worsening over the past couple days. Patient admits to orthopnea. Patient states has been taking her medications as prescribed without any recent changes that she takes Lasix however she is unsure of the dose. Patient admits to normal urination without difficulty and denies any dysuria. Patient denies chest pain, cough, fever, numbness, weakness, patient injuries, abdominal pain, melena, hematochezia, rash, sore throat, nasal congestion, sick contacts. Patient notes that she did try a nebulizer treatment which helped mildly. 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 Patient denies ever requiring noninvasive positive pressure ventilation. Patient admits to a history of multiple coronary artery stents. Patient admits to a history of DVT, unsure if she has a history of abnormal heart rhythms, admits to taking Eliquis regularly. Related Data Home Medications Medication Instructions Recorded Confirmed fenofibrate nanocrystallized 145 145 mg PO DAILY 09/25/19 04/06/23 mg tablet metoprolol succinate 100 mg 100 mg PO DAILY 09/25/19 04/06/23 tablet,extended release 24 hr triamterene 75 1 tablet PO DAILY 09/25/19 04/06/23 mg-hydrochlorothiazide 50 mg tablet multivitamin 1 tablet PO DAILY 08/04/20 04/06/23 nitroglycerin 0.4 mg sublingual 0.4 mg sublingual Q5M PRN Chest 08/04/20 04/06/23 tablet (Nitrostat) Pain furosemide 20 mg tablet 20 mg PO QAM 05/05/22 04/06/23 potassium chloride 10 mEq 5 meq PO DAILY 05/30/22 04/06/23 capsule,extended release diphenhydramine 25 1 tablet PO QHS PRN Insomnia 06/15/22 04/06/23 mg-acetaminophen 500 mg tablet (Tylenol PM Extra Strength) omega-3 1,050 nu-fsh-rug-dpa-fish 2 cap PO DAILY 06/15/22 04/06/23 oil 1,200 mg capsule insulin degludec 100 unit/mL (3 44 unit subcut QAM 03/27/23 04/06/23 mL) subcutaneous pen (Tresiba FlexTouch U-100 insulin) ergocalciferol (vitamin D2) 1,250 1,250 mcg PO WEEKLY 04/06/23 04/06/23 mcg (50,000 unit) capsule glucagon 1 mg/0.2 mL subcutaneous 1 mg subcut ONCE PRN Hypoglycemia 04/06/23 04/06/23 auto-injector (Gvoke HypoPen 2-Pack) insulin aspart (niacinamide) 12 unit subcut QACBREAK 04/06/23 04/06/23 (U-100) 100 unit/mL subcutaneous solution insulin aspart (niacinamide) 12 unit subcut QACLUNCH 04/06/23 04/06/23 (U-100) 100 unit/mL subcutaneous solution insulin aspart (niacinamide) 15 ml subcut QACDINNER 04/06/23 04/06/23 (U-100) 100 unit/mL subcutaneous solution liraglutide 0.6 mg/0.1 mL (18 mg/3 1.8 mg subcut DAILY 04/06/23 04/06/23 mL) subcutaneous pen injector (Victoza 3-Constantino) Allergies Allergy/AdvReac Type Severity Reaction Status Date / Time dexamethasone Allergy Unknown Unknown Verified 01/24/23 14:37 simvastatin Allergy Unknown Unknown Verified 01/24/23 14:37 Review of Systems Review of Systems: A 10 system review of systems was completed on the patient and is negative except for what is stated in the HPI. Nursing and ancillary documentation was reviewed. [facility] Past Medical History Medical History (Updated 04/06/23 @ 20:21 by Caitie Heard MD) Arthritis of right acromioclavicular joint Basal cell carcinoma (BCC) of right cheek Benign hypertension Chronic anticoagulation Chronic deep vein thrombosis Chronic diastolic heart failure Chronic fatigue Chronic kidney disease, stage 4 (severe) Coronary artery disease COVID-19 PEREZ (dyspnea on exertion) Dyslipidemia associated with type 2 diabetes mellitus Histo
[2023-04-06 14:56] LABS: Troponin I 0.065 ng/mL (0.000-0.034)
[2023-04-06] MEDS: ALBUTEROL SULFATE NEB 2.5 MG/3 ML INH 10 MG INHALATION (15:15)
[2023-04-06 15:45] LABS: Influenza A QL RT-PCR Negative (Negative); Influenza B QL RT-PCR Negative (Negative); SARS-CoV-2 RNA PCR Negative (Negative)
[2023-04-06] MEDS: INSULIN HUMAN REGULAR (*BKC) 100 UNITS/ML 10 UNITS IV PUSH (15:51)
[2023-04-06] MEDS: FUROSEMIDE INJ 40 MG/4 ML VIAL IV PUSH (15:51)
[2023-04-06] MEDS: SODIUM BICARBONATE 8.4% 50 MEQ/50 ML SYRINGE IV PUSH (15:51)
[2023-04-06 15:52] LABS: Potassium 5.6 mmol/L (3.4-5.0)
[2023-04-06 16:21] LABS: Troponin I 0.066 ng/mL (0.000-0.034)
[2023-04-06 16:47] LABS: Glucose Point of Care 308 mg/dl (65-105)
--- NOTE | 2023-04-06 18:59 | PM.IMHP ---
H&P: HPI History of Present Illness Date/Time: 04/06/23 18:59 Chief Complaint: Dyspnea Narrative: Patient is an 82-year-old female with past medical CKD stage 4, type 2 diabetes insulin dependent, history of DVT, hyperlipidemia who presents to ED with complaints of dyspnea. She was just recently hospitalized here from 03/28-04/02 for rhabdomyolysis. She is to with IV fluids and during hospitalization needed doses of diuretic to help with her edema. She was seen by Nephrology Dr. Leggett. Patient was then discharged to [facility] for ongoing physical therapy. At [facility] she developed worsening dyspnea requiring oxygen and was sent back to ED for further evaluation. Patient is on complaints dyspnea. She denies fever, chills, nausea vomiting, diarrhea. In the ED: Labs are stable, creatinine at baseline 2.0, potassium of 5.6, troponin slightly elevated 0.066 however showed no chest pain. Flu negative, COVID-19 negative. Patient to be admitted for observation for CHF exacerbation likely secondary to recent hospitalization during where she received fluid resuscitation. Review of Systems Review of Systems: Constitutional: No Fever, No Chills, No Night Sweats, No Fatigue, No Malaise ENT/Mouth: No Hearing Changes, No Ear Pain, No Nasal Congestion, No Sinus Pain, No Hoarseness, No sore throat, No Rhinorrhea, No Swallowing Difficulty Eyes: No Eye Pain, No Redness, No Vision Changes Cardiovascular: No Chest Pain, No Palpitations, No Dyspnea on Exertion, No Orthopnea, No Claudication, No Edema Respiratory: Endorses dyspnea, no cough no sputum no wheezing Gastrointestinal: No Nausea, No Vomiting, No Diarrhea, No Constipation, No Abdominal Pain, No Heartburn, No Hematochezia, No Melena Genitourinary: No Dysuria, No Urinary Frequency, No Hematuria, No Urinary Incontinence, No Urgency Musculoskeletal: No Arthralgias, No Myalgias, No Joint Swelling, No Joint Stiffness, No Back Pain Skin: No Skin Lesions, No Pruritis, No Hair Changes Neuro: No Weakness, No Numbness, No Paresthesias, No Loss of Consciousness, No Syncope, No Dizziness, No Headache Psych: No Anxiety/Panic, No Depression, No Insomnia Heme: No Bruising, No Bleeding Lymph: No Adenopathy Endocrine: No Polyuria, No Polydipsia, No Temperature Intolerance FORMERLY [facility], [facility]–1983 Past Medical History Medical History Arthritis of right acromioclavicular joint Basal cell carcinoma (BCC) of right cheek Benign hypertension Chronic anticoagulation Chronic deep vein thrombosis Chronic diastolic heart failure Chronic fatigue Chronic kidney disease, stage 4 (severe) Coronary artery disease COVID-19 PEREZ (dyspnea on exertion) Dyslipidemia associated with type 2 diabetes mellitus History of recurrent deep vein thrombosis (DVT) Hyperlipidemia Hypertension associated with diabetes Insulin dependent type 2 diabetes mellitus, controlled Lumbar spondylosis Obstructive sleep apnea No longer uses her cpap Sacroiliitis 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 Type 2 diabetes mellitus with hyperglycemia, with long-term current use of insulin Type 2 diabetes mellitus with insulin therapy Surgical History Surgical History H/O: hysterectomy History of appendectomy History of cardiac catheterization History of knee replacement Bilateral knees History of removal of pigmented skin lesion History of right shoulder replacement Status post coronary artery stent placement Times 3 Family History Family History Mother Diabetes mellitus Acute myocardial infarction Sibling Family history of cardiovascular disease Family history of cardiac disorder Father Acute myocardial infarction Social History Social History Social History: Lives home alone, POA: Cousins (Live
--- NOTE | 2023-04-06 19:34 | PC.NURSE ---
This patient, Maude Arias, was admitted to IMU Room 213-01. Patient/family oriented to hospital policies and general routines including ID bracelet, bed and alarms, visiting hours, pain management, procedures, bathroom and other care routines, personal items, smoking policy, room service/diet, and visiting hours. Information on how to activate the Rapid Response Team has been discussed. Patient/Family are encouraged to report perceived risks to care and to ask questions if they do not understand what they are told or what they should do.
[2023-04-06 19:41] LABS: Glucose Point of Care 270 mg/dl (65-105)
[2023-04-06 20:22] LABS: Potassium 5.1 mmol/L (3.4-5.0)
[2023-04-06 20:44] LABS: Troponin I 0.078 ng/mL (0.000-0.034)
[2023-04-06] MEDS: INSULIN ASPART (*BKC) 100 UNITS/ML 15 UNITS SUB-Q (22:50)
--- NOTE | 2023-04-06 23:38 | PC.NURSE ---
patient states they have been substituting her victoza insulin at the acute rehab facility so she would prefer to continue substituting or holding d/t inability to get home supply here. Dr. Wilde states hold during hospitalization.
[2023-04-07] VITALS (15 sets, daily range): BP systolic 120–131; BP diastolic 33–60; PULSE 53–73; RESP 18–26; TEMP 36.1–36.8; O2SAT 9–99
[2023-04-07] MEDS: traMADol HCL (*CRX) 50 MG TABLET PO ×4 (04:07→23:15)
[2023-04-07 05:52] LABS: Basophils Percent Auto 0.6 % (0.2-1.2); Eosinophils Absolute Auto 0.5 K/mm3 (0-0.3); Eosinophils Percent Auto 6.2 % (0-4.4); Hematocrit 24.2 % (37.0-47.0); Hemoglobin 7.3 g/dL (12.0-15.0); Immature Granulocyte Absolute 0.29 K/mm3 (0.00-0.031); Lymphocytes Absolute Auto 1.54 K/mm3 (0.9-3.2); Lymphocytes Percent Auto 21.3 % (18.3-44.2); Mean Corpuscular HGB Conc 30.2 g/dl (32-36); Mean Corpuscular Hemoglobin 32.3 pg (26-34); Mean Corpuscular Volume 107.1 fl (80-100); Mean Platelet Volume 9.3 fl (7.4-10.4); Monocytes Absolute Auto 0.7 K/mm3 (0.1-0.6); Monocytes Percent Auto 9.1 % (2.6-8.5); Neutrophils Absolute Auto 4.2 K/mm3 (1.3-6.7); Neutrophils Percent Auto 58.8 % (45.5-73.1); Platelet Count Result 270 k/mm3 (150-375); Red Blood Count 2.26 M/mm3 (4.2-5.4); Red Cell Distribution Width 14.9 % (11.5-14.5); White Blood Count 7.2 K/mm3 (4.5-10.0)
[2023-04-07 06:00] LABS: Anion Gap 4 mmol/L (8-16); Blood Urea Nitrogen 74 mg/dL (7-17); Calcium 9.1 mg/dL (8.4-10.2); Carbon Dioxide 29 mmol/L (22-30); Chloride 106 mmol/L (98-107); Estimated CRCL calculation 27 ml/min; Estimated Glomerular Filt Rate 25; Glucose 171 mg/dL (65-110); Magnesium 1.9 mg/dL (1.6-2.3); Potassium 4.9 mmol/L (3.4-5.0); Sodium 139 mmol/L (137-145)
[2023-04-07 06:53] LABS: Anisocytosis 1+ (NORMAL); Hypochromasia 1+ (NORMAL); Platelet Estimate Adequate (Adequate)
[2023-04-07 06:54] LABS: Polychromasia 1+ (NORMAL); Schistocytes None Seen (NORMAL)
[2023-04-07 08:54] LABS: Glucose Point of Care 165 mg/dl (65-105)
--- NOTE | 2023-04-07 09:45 | PM.CNNEP ---
Assessment and Plan Assessment and plan (1) Chronic kidney disease, stage 4 (severe): Code(s): N18.4 - Chronic kidney disease, stage 4 (severe) Status: Chronic Assessment and Plan: baseline creatinine runs ~ 2.0 - 2.5mg/dl in the last year stable if not better at this time based on outpatient evaluation, due to diabetes, hypertension, vascular disease, and age-related change follows with Dr. Leggett for management of her CKD (2) Hyperkalemia: Code(s): E87.5 - Hyperkalemia Status: Acute Assessment and Plan: due to K+ supplements and ARB use both of these medications on hold should improve with diuretic therapy follow trend of K+ (3) Acute exacerbation of CHF (congestive heart failure): Qualifiers: Heart failure type: unspecified Qualified Code(s): I50.9 - Heart failure, unspecified Code(s): I50.9 - Heart failure, unspecified Status: Acute Assessment and Plan: as evidenced by exam and history continue IV diuretics follow I/Os, daily weights, and respiratory status (4) Hypertension: Code(s): I10 - Essential (primary) hypertension Status: Chronic Assessment and Plan: reasonable control at this time follow trend of hemodynamics (5) Anemia: Code(s): D64.9 - Anemia, unspecified Status: Acute Assessment and Plan: partly related to CKD and recent hospital admission check iron studies consider empiric MESERET use follow trend of H/H (6) Type 2 diabetes mellitus with hyperglycemia, with long-term current use of insulin: Code(s): E11.65 - Type 2 diabetes mellitus with hyperglycemia; 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 Thank you for allowing me to participate in the care of this patient. History of Present Illness Reason for Consult Consult date: 04/07/23 Reason for consult: chronic renal failure Chief Complaint Chief complaint: Heart Failure Exacerbation History of Present Illness Narrative: The patient is 82-year-old female with a past medical history as outlined below who presented to [facility] Emergency with complaints of shortness of breath It should be noted the patient was just recently hospitalized here about a week ago for rhabdomyolysis after she sustained a fall and had a protracted //prolonged down time. During that hospitalization, she was treated with aggressive IV fluid hydration with improvement in her CPK levels but did run into issues with fluid overload that required several doses of IV diuretics. By the time of discharge, her renal function was at baseline and her fluid status as well as her breathing was at baseline. While the patient was at [facility] undergoing PT/OT therapy, she was noticed to have increasing shortness of breath that required supplemental oxygen when she normally is on room air. She gave no other acute symptoms with regard to fevers, chills, nausea, vomiting, diarrhea, abdominal pain, lightheadedness, dizziness, or palpitations. Given her significant change in her respiratory status, she was sent back to the emergency room for further assessment. Workup and evaluation emergency room demonstrated routine blood test that were consistent with her known history of chronic kidney disease with a mildly elevated potassium level and a mildly elevated troponin. EKG did not show any changes consistent with ischemia and her COVID-19 as well as influenza screenings were negative. Her chest x-ray shows some mild pulmonary vascular congestion and she did have a significant amount of lower extremity edema that was not present on discharge from her last hospital stay. It was felt that the IV fluid resuscitation as she
[2023-04-07] MEDS: ATORVASTATIN 40 MG TABLET PO (10:16)
[2023-04-07] MEDS: METOPROLOL SUCCINATE EXT REL 100 MG TABCR PO (10:16)
[2023-04-07] MEDS: MULTIVITAMINS THERAPEUTIC TAB (*BKC) 1 TABLET PO (10:16)
[2023-04-07] MEDS: OMEGA 3 POLYUNSAT FATTY ACIDS 1 GM CAP 2 GM PO (10:17)
[2023-04-07] MEDS: metOLazone 2.5 MG TABLET PO (10:18)
[2023-04-07] MEDS: FUROSEMIDE INJ 40 MG/4 ML VIAL IV PUSH ×2 (10:23→16:49)
[2023-04-07] MEDS: INSULIN GLARGINE (*BKC) 100 UNITS/ML 44 UNITS SUB-Q (10:30)
--- NOTE | 2023-04-07 10:32 | PM.IMPN ---
Progress Note: A&P Assessment and Plan (1) Acute exacerbation of CHF (congestive heart failure): Qualifiers: Heart failure type: unspecified Qualified Code(s): I50.9 - Heart failure, unspecified Code(s): I50.9 - Heart failure, unspecified Status: Acute Assessment and Plan: -echocardiogram 09/13/2019 EF 73%, impaired diastolic relaxation grade 1 -diuresis IV Lasix 40 mg b.i.d. (home lasix is 20mg daily) -will continue metolazone -strict I&O (2) Elevated troponin: Code(s): R77.8 - Other specified abnormalities of plasma proteins Status: Acute Assessment and Plan: -no chest pain, troponins are mildly elevated. Doubt ACS -over troponin likely secondary to fluid overload in setting of renal disease (3) Chronic kidney disease: Qualifiers: Chronic kidney disease stage: stage 4 (severe) Qualified Code(s): N18.4 - Chronic kidney disease, stage 4 (severe) Code(s): N18.9 - Chronic kidney disease, unspecified Status: Acute Assessment and Plan: -patient has known CKD follows Dr. Leggett, will consult nephrology -creatinine at baseline Subjective Date/time seen: 04/07/23 10:32 Interval history: Improved Review of Systems Review of Systems: All systems reviewed & are unremarkable except as noted in HPI and below Exam Narrative: - GENERAL: Pleasant morbidly obese woman in slight distress. - EYES: EOMI. Anicteric. - HENT: Moist mucous membranes. - LUNGS: Slight tachypneic on 2 L oxygen nasal cannula, slightly coarse lung sounds - CARDIOVASCULAR: Regular rate and rhythm. No murmur. - ABDOMEN: Soft, obese, non-tender and non-distended. No palpable masses. - EXTREMITIES: 2+ pitting edema throughout, peripheral pulses intact - NEUROLOGIC: No focal neurological deficits. CN II-XII grossly intact. - PSYCHIATRIC: Awake, Alert and oriented x 3. Appropriate mood and affect. - SKIN: No rashes or lesions. Warm. - LYMPH: No cervical lymphadenopathy. Objective Data Vital Signs Vital Signs: Vital Signs - 24 hr 04/06/23 11:45 04/06/23 13:50 04/06/23 15:10 Temperature 97.8 F 97.7 F Pulse Rate 74 65 95 Respiratory Rate 18 20 16 Blood Pressure 146/37 H 130/93 H Pulse Oximetry 100 100 100 Oxygen Delivery Nasal Cannula Oxygen Flow Rate 2 04/06/23 14:08 04/06/23 14:15 04/06/23 14:17 Temperature Pulse Rate 120 H 96 Respiratory Rate 20 19 22 H Blood Pressure 154/53 H Pulse Oximetry 100 100 100 Oxygen Delivery Oxygen Flow Rate 04/06/23 14:30 04/06/23 14:45 04/06/23 15:15 Temperature Pulse Rate 115 H 60 73 Respiratory Rate 22 H 18 20 Blood Pressure Pulse Oximetry 98 Oxygen Delivery Oxygen Flow Rate 04/06/23 15:58 04/06/23 15:19 04/06/23 15:32 Temperature Pulse Rate 84 67 Respiratory Rate 22 H 16 19 Blood Pressure 133/88 Pulse Oximetry 99 Oxygen Delivery Oxygen Flow Rate 04/06/23 16:11 04/06/23 16:15 04/06/23 16:30 Temperature Pulse Rate Respiratory Rate 17 20 19 Blood Pressure Pulse Oximetry 100 100 100 Oxygen Delivery Oxygen Flow Rate 04/06/23 17:06 04/06/23 13:45 04/06/23 18:41 Temperature Pulse Rate 58 L 65 Respiratory Rate 18 Blood Pressure 123/53 L Pulse Oximetry 97 97 Oxygen Delivery Nasal Cannula Oxygen Flow Rate 2 04/06/23 17:01 04/06/23 17:20 04/06/23 17:30 Temperature Pulse Rate 57 L 53 L 53 L Respiratory Rate 20 19 20 Blood Pressure Pulse Oximetry Oxygen Delivery Oxygen Flow Rate 04/06/23 18:30 04/06/23 18:31 04/06/23 19:28 Temperature 96.8 F L Pulse Rate 64 71 67 Respiratory Rate 18 20 24 H Blood Pressure 123/53 L 136/90 Pulse Oximetry 99 Oxygen Delivery Oxygen Flow Rate 04/06/23 20:00 04/06/23 20:30 04/06/23 22:00 Temperature Pulse Rate 67 73 70 Respiratory Rate 20 Blood Pressure Pulse Oximetry 99 Oxygen Delivery Nasal Cannula Oxygen Flow Rate 1
[2023-04-07] MEDS: INSULIN ASPART (*BKC) 100 UNITS/ML 12 UNITS SUB-Q (12:00)
[2023-04-07 12:34] LABS: Glucose Point of Care 212 mg/dl (65-105)
[2023-04-07 16:25] LABS: Glucose Point of Care 197 mg/dl (65-105)
[2023-04-07 21:03] LABS: Glucose Point of Care 210 mg/dl (65-105)
[2023-04-07] MEDS: TOLNAFTATE 1% POWDER 45 GM BTL 1 APPLIC TOPICAL (22:08)
[2023-04-08] VITALS (12 sets, daily range): BP systolic 124–145; BP diastolic 38–97; PULSE 52–68; RESP 18–19; TEMP 36.1–36.8; O2SAT 93–98
--- NOTE | 2023-04-08 | ECHO_ITS ---
Patient Info Name: Maude Arias Age: 82 years : 1940 Gender: Female Ht: 62 in Wt: 291 lbs BSA: 2.49 m2 HR: 66 bpm BP: 124 / 51 mmHg Heart Rhythm: Sinus Rhythm Technical Quality: Fair Exam Date: 04/08/2023 10:38 AM Exam Location: [facility] Patient Status: Inpatient Admit Date: 04/06/2023 Staff Ordering Physician: Gregg Rod MD Inspector And Tester: Janessa Foster RDCS Attending Provider: Gregg Rod MD Referring Physician: Marcel HERRERA; Exam Type: CA echo doppler color flow Study Info Indications - chf exac Complete two-dimensional, color flow and Doppler transthoracic echocardiogram is performed. Summary 1. Complete two-dimensional, color flow and Doppler transthoracic echocardiogram is performed. 2. Left ventricular chamber dimension is normal. 3. Left ventricular systolic function is normal, estimated at 65-70%. 4. There is mild concentric increased left ventricular wall thickness. 5. The left ventricular diastolic function is grade I diastolic dysfunction. 6. E/e' 15 is elevated. 7. Left atrial chamber dimension is mildly enlarged. 8. There is moderate aortic valve sclerosis. 9. There is mild to moderate aortic valve stenosis with a peak velocity of 322 cm/s, mean gradient of 17 mmHg, and aortic valve area of 1.5 cm2. 10. No pulmonary hypertension, estimated pulmonary arterial systolic pressure is 19 mmHg. 11. There is trace pulmonic regurgitation. Left Ventricle E/e' 15 is elevated. Left ventricular chamber dimension is normal. Left ventricular systolic function is normal, estimated at 65-70%. There is mild concentric increased left ventricular wall thickness. The left ventricular diastolic function is grade I diastolic dysfunction. Right Ventricle Right ventricular systolic function is normal and with normal TAPSE 2.5 cm. Right ventricular chamber dimension is normal. Left Atria Left atrial chamber dimension is mildly enlarged. Right Atria Right atrial chamber dimension is normal. Aortic Valve The aortic valve is trileaflet. There is moderate aortic valve sclerosis. There is mild to moderate aortic valve stenosis with a peak velocity of 322 cm/s, mean gradient of 17 mmHg, and aortic valve area of 1.5 cm2. There is no aortic valve regurgitation. Pulmonic Valve There is trace pulmonic regurgitation. Mitral Valve There is no mitral valve stenosis. There is no mitral valve regurgitation. Tricuspid Valve There is no tricuspid valve regurgitation. No pulmonary hypertension, estimated pulmonary arterial systolic pressure is 19 mmHg. Pericardium/Pleural There is no pericardial effusion. Inferior Vena Cava Normal inferior vena cava with >50% collapse upon inspiration consistent with normal right atrial pressure, 5 mmHg. Aorta The aortic root size at the sinus of Valsalva is normal. Left Ventricular Outflow Tract Name Value Normal LVOT 2D LVOT Diameter 2.0 cm LVOT Doppler LVOT Peak Gradient 6 mmHg LVOT Mean Gradient 3 mmHg LVOT VTI 32 cm LVOT VTI/AV VTI Ratio 0.5 LVOT Stroke Volume 102 ml
[2023-04-08 06:03] LABS: Anion Gap 3 mmol/L (8-16); Blood Urea Nitrogen 80 mg/dL (7-17); Calcium 9.1 mg/dL (8.4-10.2); Carbon Dioxide 32 mmol/L (22-30); Chloride 103 mmol/L (98-107); Estimated CRCL calculation 24 ml/min; Estimated Glomerular Filt Rate 22; Glucose 150 mg/dL (65-110); Potassium 5.2 mmol/L (3.4-5.0); Sodium 138 mmol/L (137-145)
[2023-04-08 07:38] LABS: Glucose Point of Care 135 mg/dl (65-105)
[2023-04-08] MEDS: FUROSEMIDE INJ 40 MG/4 ML VIAL IV PUSH (09:31)
[2023-04-08] MEDS: INSULIN GLARGINE (*BKC) 100 UNITS/ML 44 UNITS SUB-Q (09:31)
[2023-04-08] MEDS: metOLazone 2.5 MG TABLET PO (09:32)
[2023-04-08] MEDS: ATORVASTATIN 40 MG TABLET PO (09:32)
[2023-04-08] MEDS: TOLNAFTATE 1% POWDER 45 GM BTL 1 APPLIC TOPICAL ×2 (09:32→20:52)
[2023-04-08] MEDS: MULTIVITAMINS THERAPEUTIC TAB (*BKC) 1 TABLET PO (09:32)
[2023-04-08] MEDS: OMEGA 3 POLYUNSAT FATTY ACIDS 1 GM CAP 2 GM PO (09:32)
[2023-04-08] MEDS: METOPROLOL SUCCINATE EXT REL 100 MG TABCR PO (09:32)
[2023-04-08] MEDS: INSULIN ASPART (*BKC) 100 UNITS/ML 12 UNITS SUB-Q (09:42)
[2023-04-08 11:38] LABS: Glucose Point of Care 222 mg/dl (65-105)
--- NOTE | 2023-04-08 11:57 | PM.IMPN ---
Progress Note: A&P Assessment and Plan (1) Acute exacerbation of CHF (congestive heart failure): Qualifiers: Heart failure type: unspecified Qualified Code(s): I50.9 - Heart failure, unspecified Code(s): I50.9 - Heart failure, unspecified Status: Acute Assessment and Plan: -change IV to oral Lasix. Will order echocardiogram -will continue metolazone -strict I&O (2) Elevated troponin: Code(s): R77.8 - Other specified abnormalities of plasma proteins Status: Acute Assessment and Plan: -no chest pain, troponins are mildly elevated. Doubt ACS -elevated troponin likely secondary to fluid overload in setting of renal disease (3) Chronic kidney disease: Qualifiers: Chronic kidney disease stage: stage 4 (severe) Qualified Code(s): N18.4 - Chronic kidney disease, stage 4 (severe) Code(s): N18.9 - Chronic kidney disease, unspecified Status: Acute Assessment and Plan: -patient has known CKD follows Dr. Leggett, will consult nephrology -creatinine at baseline Subjective Date/time seen: 04/08/23 11:57 Interval history: Dyspnea is better. Patient on room air now Review of Systems Review of Systems: As per HPI. Exam Narrative: - GENERAL: Pleasant morbidly obese woman in slight distress. - EYES: EOMI. Anicteric. - HENT: Moist mucous membranes. - LUNGS: Slight tachypneic on 2 L oxygen nasal cannula, slightly coarse lung sounds - CARDIOVASCULAR: Regular rate and rhythm. No murmur. - ABDOMEN: Soft, obese, non-tender and non-distended. No palpable masses. - EXTREMITIES: 2+ pitting edema throughout, peripheral pulses intact - NEUROLOGIC: No focal neurological deficits. CN II-XII grossly intact. - PSYCHIATRIC: Awake, Alert and oriented x 3. Appropriate mood and affect. - SKIN: No rashes or lesions. Warm. - LYMPH: No cervical lymphadenopathy. Objective Data Vital Signs Vital Signs: Vital Signs - 24 hr 04/07/23 12:10 04/07/23 12:00 04/07/23 12:00 Temperature 97.6 F Pulse Rate 67 71 Respiratory Rate 18 Blood Pressure 120/60 Pulse Oximetry 93 9 L Oxygen Delivery Nasal Cannula Oxygen Flow Rate 1 04/07/23 14:00 04/07/23 12:00 04/07/23 16:00 Temperature 96.9 F L Pulse Rate 60 67 62 Respiratory Rate 26 H Blood Pressure 131/55 L Pulse Oximetry 93 96 Oxygen Delivery Nasal Cannula Oxygen Flow Rate 1 04/07/23 16:00 04/07/23 16:00 04/07/23 18:00 Temperature Pulse Rate 73 59 L 57 L Respiratory Rate Blood Pressure Pulse Oximetry 98 Oxygen Delivery Nasal Cannula Oxygen Flow Rate 1 04/07/23 20:00 04/08/23 00:00 04/07/23 20:00 Temperature 98.2 F 97.8 F Pulse Rate 62 56 L 63 Respiratory Rate 18 18 Blood Pressure 131/38 L 130/41 L Pulse Oximetry 96 96 Oxygen Delivery Oxygen Flow Rate 04/07/23 20:00 04/07/23 22:00 04/08/23 00:00 Temperature Pulse Rate 53 L 54 L Respiratory Rate Blood Pressure Pulse Oximetry 96 Oxygen Delivery Nasal Cannula Oxygen Flow Rate 1 04/08/23 00:00 04/08/23 02:00 04/08/23 04:00 Temperature 97 F L Pulse Rate 56 L 55 L Respiratory Rate 18 Blood Pressure 127/38 L Pulse Oximetry 96 97 Oxygen Delivery Nasal Cannula Oxygen Flow Rate 1 04/08/23 04:00 04/08/23 04:00 04/08/23 06:00 Temperature Pulse Rate 52 L 58 L Respiratory Rate Blood Pressure Pulse Oximetry 97 Oxygen Delivery Nasal Cannula Oxygen Flow Rate 1 04/08/23 08:00 04/08/23 09:32 04/08/23 10:30 Temperature 97.8 F Pulse Rate 66 66 Respiratory Rate 19 Blood Pressure 124/51 L Pulse Oximetry 98 94 Oxygen Delivery Room Air Oxygen Flow Rate Intake/Output Intake/Output: Intake & Output 04/05/23 04/06/23 04/07/23 04/08/23 23:59 23:59 23:59 23:59 Intake Total 1160 / 1160 830 / 830 Output Total 2450 / 2450 1000 / 1000 Balance -1290 / -1290 -170 / -170 Meds/Results Medications: Activ
[2023-04-08 16:31] LABS: Glucose Point of Care 214 mg/dl (65-105)
[2023-04-08] MEDS: FUROSEMIDE 40 MG TABLET PO (17:53)
--- NOTE | 2023-04-08 18:54 | PC.NURSE ---
This patient, Maude Arias, was transferred to [facility] on 04/08/23 at 1854. Personal belongings sent with patient. Report given to Radhika MACK. Appropriate documentation sent with patient.
[2023-04-08] MEDS: traMADol HCL (*CRX) 50 MG TABLET PO (19:00)
--- NOTE | 2023-04-08 20:07 | P.PNNP_ITS ---
Progress Note: A&P Assessment and Plan (1) Chronic kidney disease, stage 4 (severe): Code(s): N18.4 - Chronic kidney disease, stage 4 (severe) Status: Chronic Assessment and Plan: * CKD due to DM, HTN, and vascular disease. * baseline creatinine runs ~ 2.0 - 2.5mg/dl in the last year * her creatinine was higher before with rhabdo. improved with hydration. * now creatinine better but came back in for volume overload (2) Hyperkalemia: Code(s): E87.5 - Hyperkalemia Status: Acute Assessment and Plan: * due to K+ supplements and ARB use * both on hold * K 5.2 today * repeat tomorrow and if higher use lokelma. (3) Acute exacerbation of CHF (congestive heart failure): Qualifiers: Heart failure type: unspecified Qualified Code(s): I50.9 - Heart failure, unspecified Code(s): I50.9 - Heart failure, unspecified Status: Acute Assessment and Plan: * edema. * cxr shows mild pulmonary edema. * echo shows diastolic dysfunction. * furosemide changed to PO. * I/O 1200/2450. * edema better but not down to normal. * continue current meds for now. (4) Hypertension: Code(s): I10 - Essential (primary) hypertension Status: Chronic Assessment and Plan: * systolic 120s to 140s. * it should improve as we diuresis (5) Anemia: Code(s): D64.9 - Anemia, unspecified Status: Acute Assessment and Plan: * partly related to CKD and recent hospital admission * hb 7.3 yesterday * repeat cbc and check iron levels. (6) Type 2 diabetes mellitus with hyperglycemia, with long-term current use of insulin: Code(s): E11.65 - Type 2 diabetes mellitus with hyperglycemia; Z79.4 - columnist (current) use of insulin Status: Chronic Assessment and Plan: * following accu-checks * glycemic control per hospitalists Subjective Date/time seen: 04/08/23 20:07 Interval history: pt is feeling better. less swollen. no sob. off oxygen. eating okay. Review of Systems Cardiovascular: Cardiovascular: Reports no additional cardiovascular compla ints Respiratory: Respiratory: Reports no additional respiratory complaints Gastrointestinal: Gastrointestinal: Reports no additional gastrointestinal complaints Genitourinary: Genitourinary: Reports no additional female genitourinary com plaints Exam Narrative: WDWN in NAD skin no rash head ncat lungs clear cor reg no rub abd BS+ nontender and soft ext 1-2+ symmetrica edema. Objective Data Vital Signs Vital Signs: Vital Signs - 24 hr 04/08/23 00:00 04/07/23 22:00 04/08/23 00:00 Temperature 97.8 F Pulse Rate 56 L 53 L 54 L Respiratory Rate 18 Blood Pressure 130/41 L Pulse Oximetry 96 Oxygen Delivery Oxygen Flow Rate 04/08/23 00:00 04/08/23 02:00 04/08/23 04:00 Temperature 97 F L Pulse Rate 56 L 55 L Respiratory Rate 18 Blood Pressure 127/38 L Pulse Oximetry 96 97 Oxygen Delivery Nasal Cannula Oxygen Flow Rate 1 04/08/23 04:00 04/08/23 04:00 04/08/23 06:00 Temperature Pulse Rate 52 L 58 L Respiratory Rate Blood
--- NOTE | 2023-04-08 20:07 | PM.PNNEP ---
Progress Note: A&P Assessment and Plan (1) Chronic kidney disease, stage 4 (severe): Code(s): N18.4 - Chronic kidney disease, stage 4 (severe) Status: Chronic Assessment and Plan: CKD due to DM, HTN, and vascular disease. baseline creatinine runs ~ 2.0 - 2.5mg/dl in the last year her creatinine was higher before with rhabdo. improved with hydration. now creatinine better but came back in for volume overload (2) Hyperkalemia: Code(s): E87.5 - Hyperkalemia Status: Acute Assessment and Plan: due to K+ supplements and ARB use both on hold K 5.2 today repeat tomorrow and if higher use lokelma. (3) Acute exacerbation of CHF (congestive heart failure): Qualifiers: Heart failure type: unspecified Qualified Code(s): I50.9 - Heart failure, unspecified Code(s): I50.9 - Heart failure, unspecified Status: Acute Assessment and Plan: edema. cxr shows mild pulmonary edema. echo shows diastolic dysfunction. furosemide changed to PO. I/O 1200/2450. edema better but not down to normal. continue current meds for now. (4) Hypertension: Code(s): I10 - Essential (primary) hypertension Status: Chronic Assessment and Plan: systolic 120s to 140s. it should improve as we diuresis (5) Anemia: Code(s): D64.9 - Anemia, unspecified Status: Acute Assessment and Plan: partly related to CKD and recent hospital admission hb 7.3 yesterday repeat cbc and check iron levels. (6) Type 2 diabetes mellitus with hyperglycemia, with long-term current use of insulin: Code(s): E11.65 - Type 2 diabetes mellitus with hyperglycemia; Z79.4 - [employer] continuous [employer] (current) use of insulin Status: Chronic Assessment and Plan: following accu-checks glycemic control per hospitalists Subjective Date/time seen: 04/08/23 20:07 Interval history: pt is feeling better. less swollen. no sob. off oxygen. eating okay. Review of Systems Cardiovascular: Cardiovascular: Reports no additional cardiovascular complaints Respiratory: Respiratory: Reports no additional respiratory complaints Gastrointestinal: Gastrointestinal: Reports no additional gastrointestinal complaints Genitourinary: Genitourinary: Reports no additional female genitourinary complaints Exam Narrative: WDWN in NAD skin no rash head ncat lungs clear cor reg no rub abd BS+ nontender and soft ext 1-2+ symmetrica edema. Objective Data Vital Signs Vital Signs: Vital Signs - 24 hr 04/08/23 00:00 04/07/23 22:00 04/08/23 00:00 Temperature 97.8 F Pulse Rate 56 L 53 L 54 L Respiratory Rate 18 Blood Pressure 130/41 L Pulse Oximetry 96 Oxygen Delivery Oxygen Flow Rate 04/08/23 00:00 04/08/23 02:00 04/08/23 04:00 Temperature 97 F L Pulse Rate 56 L 55 L Respiratory Rate 18 Blood Pressure 127/38 L Pulse Oximetry 96 97 Oxygen Delivery Nasal Cannula Oxygen Flow Rate 1 04/08/23 04:00 04/08/23 04:00 04/08/23 06:00 Temperature Pulse Rate 52 L 58 L Respiratory Rate Blood Pressure Pulse Oximetry 97 Oxygen Delivery Nasal Cannula Oxygen Flow Rate 1 04/08/23 08:00 04/08/23 09:32 04/08/23 10:30 Temperature 97.8 F Pulse Rate 66 66 Respiratory Rate 19 Blood Pressure 124/51 L Pulse Oximetry 98 94 Oxygen Delivery Room Air Oxygen Flow Rate 04/08/23 08:00 04/08/23 10:00 04/08/23 12:00 Temperature 98.2 F Pulse Rate 65 58 L 63 Respiratory Rate 18 Blood Pressure 137/58 L Pulse Oximetry 96 Oxygen Delivery Oxygen Flow Rate 04/08/23 13:28 04/08/23 15:35 04/08/23 16:00 Temperature 97.2 F L Pulse Rate 68 Respiratory Rate 18 Blood Pressure 134/97 H Pulse Oximetry 93 Oxygen Delivery Room Air Room Air Oxygen Flow Rate 04/08/23 18:50 04/08/23 19:00 Temperature 97.7 F Pulse Rate 68 Respiratory Rate 18 Blood Pressur
[2023-04-08 20:41] LABS: Glucose Point of Care 196 mg/dl (65-105)
[2023-04-08 21:00] LABS: Glucose Point of Care 193 mg/dl (65-105)
[2023-04-09] VITALS (11 sets, daily range): BP systolic 110–151; BP diastolic 56–84; PULSE 68–150; RESP 18–28; TEMP 36.6–39.6; O2SAT 90–98
[2023-04-09 06:06] LABS: Hematocrit 29.3 % (37.0-47.0); Hemoglobin 8.9 g/dL (12.0-15.0); Immature Reticulocyte Fraction 21.4 % (3.0-15.9); Mean Corpuscular HGB Conc 30.4 g/dl (32-36); Mean Corpuscular Hemoglobin 32.2 pg (26-34); Mean Corpuscular Volume 106.2 fl (80-100); Mean Platelet Volume 9.4 fl (7.4-10.4); Platelet Count Result 285 k/mm3 (150-375); Red Blood Count 2.76 M/mm3 (4.2-5.4); Red Cell Distribution Width 14.6 % (11.5-14.5); Reticulocyte Hemoglobin Conten 30.8 pg (28.2-35.7); Reticulocyte Percent 5.78 % (0.7-4.3); Reticulocytes Absolute 0.16 M/mm3 (0.02-0.1); White Blood Count 15.8 K/mm3 (4.5-10.0)
[2023-04-09 06:16] LABS: Albumin Level 3.3 g/dL (3.5-5.1); Anion Gap 9 mmol/L (8-16); Blood Urea Nitrogen 83 mg/dL (7-17); Calcium 9.4 mg/dL (8.4-10.2); Carbon Dioxide 29 mmol/L (22-30); Chloride 100 mmol/L (98-107); Estimated CRCL calculation 23 ml/min; Estimated Glomerular Filt Rate 21; Glucose 221 mg/dL (65-110); Phosphorus 3.7 mg/dL (2.5-4.5); Potassium 4.4 mmol/L (3.4-5.0); Sodium 138 mmol/L (137-145)
[2023-04-09 06:29] LABS: Iron 21 ug/dL (37-170)
[2023-04-09 06:39] LABS: Percent Iron Saturation 6 % (20-50)
[2023-04-09] MEDS: traMADol HCL (*CRX) 50 MG TABLET PO (07:45)
[2023-04-09 07:48] LABS: Glucose Point of Care 211 mg/dl (65-105)
[2023-04-09] MEDS: FUROSEMIDE 40 MG TABLET PO (09:02)
[2023-04-09] MEDS: ATORVASTATIN 40 MG TABLET PO (09:02)
[2023-04-09] MEDS: MULTIVITAMINS THERAPEUTIC TAB (*BKC) 1 TABLET PO (09:03)
[2023-04-09] MEDS: METOPROLOL SUCCINATE EXT REL 100 MG TABCR PO (09:03)
[2023-04-09] MEDS: OMEGA 3 POLYUNSAT FATTY ACIDS 1 GM CAP 2 GM PO (09:03)
[2023-04-09] MEDS: TOLNAFTATE 1% POWDER 45 GM BTL 1 APPLIC TOPICAL ×2 (09:04→21:08)
[2023-04-09] MEDS: INSULIN ASPART (*BKC) 100 UNITS/ML 10 UNITS SUB-Q ×2 (09:05→12:17)
[2023-04-09] MEDS: INSULIN GLARGINE (*BKC) 100 UNITS/ML 44 UNITS SUB-Q (09:07)
--- NOTE | 2023-04-09 10:05 | PM.IMPN ---
Progress Note: A&P Assessment and Plan (1) Acute exacerbation of CHF (congestive heart failure): Qualifiers: Heart failure type: unspecified Qualified Code(s): I50.9 - Heart failure, unspecified Code(s): I50.9 - Heart failure, unspecified Status: Acute Assessment and Plan: -continue oral Lasix. echocardiogram suggests diastolic dysfunction Discontinue metolazone -strict I&O (2) Elevated troponin: Code(s): R77.8 - Other specified abnormalities of plasma proteins Status: Acute Assessment and Plan: -no chest pain, troponins are mildly elevated. Doubt ACS -elevated troponin likely secondary to fluid overload in setting of renal disease (3) Chronic kidney disease: Qualifiers: Chronic kidney disease stage: stage 4 (severe) Qualified Code(s): N18.4 - Chronic kidney disease, stage 4 (severe) Code(s): N18.9 - Chronic kidney disease, unspecified Status: Acute Assessment and Plan: -patient has known CKD follows Dr. Leggett, will consult nephrology -creatinine at baseline Plan PT and OT Subjective Date/time seen: 04/09/23 10:05 Interval history: Dyspnea improving Review of Systems Review of Systems: As per HPI. Exam Narrative: WDWN in NAD skin no rash head ncat lungs clear cor reg no rub abd BS+ nontender and soft ext 1-2+ symmetrica edema. Objective Data Vital Signs Vital Signs: Vital Signs - 24 hr 04/08/23 10:30 04/08/23 12:00 04/08/23 13:28 Temperature 98.2 F Pulse Rate 63 Respiratory Rate 18 Blood Pressure 137/58 L Pulse Oximetry 94 96 Oxygen Delivery Room Air Room Air 04/08/23 15:35 04/08/23 16:00 04/08/23 18:50 Temperature 97.2 F L Pulse Rate 68 Respiratory Rate 18 Blood Pressure 134/97 H Pulse Oximetry 93 Oxygen Delivery Room Air Room Air 04/08/23 19:00 04/08/23 20:00 04/09/23 04:48 Temperature 97.7 F 98.5 F Pulse Rate 68 68 78 Respiratory Rate 18 18 20 Blood Pressure 145/89 H 151/74 H Pulse Oximetry 93 93 94 Oxygen Delivery Room Air 04/09/23 09:03 Temperature Pulse Rate 82 Respiratory Rate Blood Pressure Pulse Oximetry Oxygen Delivery Intake/Output Intake/Output: Intake & Output 04/06/23 04/07/23 04/08/23 04/09/23 23:59 23:59 23:59 23:59 Intake Total 1160 / 1160 1190 / 1190 100 / 100 Output Total 2450 / 2450 2900 / 2900 1000 / 1000 Balance -1290 / -1290 -1710 / -1710 -900 / -900 Meds/Results Medications: Active Medications Generic Name Dose Route Start Last Admin Trade Name Freddy PRN Reason Stop Dose Admin Acetaminophen 500 mg 04/06/23 20:36 Acetaminophen 500 Mg Tablet PO QHS PRN Insomnia Atorvastatin Calcium 40 mg 04/07/23 09:00 04/09/23 09:02 Atorvastatin 40 Mg Tablet PO 40 mg DAILY GARRY Administration Cyanocobalamin 1,000 mcg 05/07/23 09:00 Cyanocobalamin Inj 1,000 Mcg/Ml Vial SUB-Q MONTHLY GARRY Dextrose 12.5 gm 04/08/23 12:40 Dextrose 50% 25 Gm/50 Ml Syringe IV PUSH PRN PRN Hypoglycemia Protocol Diphenhydramine HCl 25 mg 04/06/23 19:43 Diphenhydramine Hcl Cap 25 Mg Capsule PO QHS PRN Insomnia Fish Oil 2 gm 04/07/23 09:00 04/09/23 09:03 Guy 3 Polyunsat Fatty Acids 1 Gm Cap PO 2 gm QAM GARRY Administration Furosemide 40 mg 04/08/23 09:00 04/09/23 09:02 Furosemide 40 Mg Tablet PO 40 mg BID GARRY Administration Glucagon 1 mg 04/06/23 19:43 Glucagon For Inj 1 Mg Vial SUB-Q ONCE PRN Hypoglycemia Glucagon 1 mg 04/08/23 12:40 Glucagon For Inj 1 Mg Vial IM PRN PRN Hypoglycemia Protocol Glucose 15 gm 04/08/23 12:40 Glucose Oral Gel 15 Gm Of Glucse In 37.5 Gm Tube PO PRN PRN Hypoglycemia Protocol Dextrose 1,000 mls @ 100 mls/hr 04/08/23 12:40 Dextrose 5% 1,000 Ml IVPB PRN PRN Hypoglycemia Protocol Insulin Aspart 10 units 04/09/23 08:00 0
--- NOTE | 2023-04-09 11:43 | P.PNNP_ITS ---
Progress Note: A&P Assessment and Plan (1) Chronic kidney disease, stage 4 (severe): Code(s): N18.4 - Chronic kidney disease, stage 4 (severe) Status: Chronic Assessment and Plan: * CKD due to DM, HTN, and vascular disease. * baseline creatinine runs ~ 2.0 - 2.5mg/dl in the last year * her creatinine was higher before with rhabdo. improved with hydration. * now creatinine better but came back in for volume overload (2) Hyperkalemia: Code(s): E87.5 - Hyperkalemia Status: Acute Assessment and Plan: * due to K+ supplements and ARB use * both on hold * K 4.4 today. (3) Acute exacerbation of CHF (congestive heart failure): Qualifiers: Heart failure type: unspecified Qualified Code(s): I50.9 - Heart failure, unspecified Code(s): I50.9 - Heart failure, unspecified Status: Acute Assessment and Plan: * edema. * cxr showed mild pulmonary edema. * echo shows diastolic dysfunction. * furosemide changed to PO. * I/O negative again. * Bicarbonate and potassium are both okay so far. * edema better but not down to normal. * continue oral loop diuretics (4) Hypertension: Code(s): I10 - Essential (primary) hypertension Status: Chronic Assessment and Plan: * systolic 120s to 150s. * it should improve as we diuresis (5) Anemia: Code(s): D64.9 - Anemia, unspecified Status: Acute Assessment and Plan: * partly related to CKD and recent hospital admission * hb 8.9 today * Iron levels low. Will start iron sucrose. (6) Type 2 diabetes mellitus with hyperglycemia, with long-term current use of insulin: Code(s): E11.65 - Type 2 diabetes mellitus with hyperglycemia; Z79.4 - [facility] (current) use of insulin Status: Chronic Assessment and Plan: * following accu-checks * glycemic control per hospitalists Subjective Date/time seen: 04/09/23 11:43 Interval history: pt is feeling better. Breathing is just okay. She is off oxygen. She has not been out of bed so she does not know how she will be when she walks. She is getting physical therapy occasionally. She has some pain in her arms just in the skin or the swelling was so bad. Exam Narrative: WDWN in NAD skin no rash. Some mild bruising and some scab where she scratched while so swollen. head ncat lungs clear cor reg no rub abd BS+ nontender and soft ext 1-2+ symmetrical edema. Objective Data Vital Signs Vital Signs: Vital Signs - 24 hr 04/08/23 12:00 04/08/23 13:28 04/08/23 15:35 Temperature 98.2 F Pulse Rate 63 Respiratory Rate 18 Blood Pressure 137/58 L Pulse Oximetry 96 Oxygen Delivery Room Air Room Air 04/08/23 16:00 04/08/23 18:50 04/08/23 19:00 Temperature 97.2 F L 97.7 F Pulse Rate 68 68 Respiratory Rate 18 18 Blood Pressure 134/97 H 145/89 H Pulse Oximetry 93 93 Oxygen Delivery Room Air 04/08/23 20:00 04/09/23 04:48 04/09/23 09:03 Temperature 98.5 F Pulse Rate 68 78 82 Respiratory Rate 18 20 Blood Pressure 151/74 H Pulse Oximetry 93 94 Oxygen Delivery Room Air Intake/Output Intake/Output:
--- NOTE | 2023-04-09 11:43 | PM.PNNEP ---
Progress Note: A&P Assessment and Plan (1) Chronic kidney disease, stage 4 (severe): Code(s): N18.4 - Chronic kidney disease, stage 4 (severe) Status: Chronic Assessment and Plan: CKD due to DM, HTN, and vascular disease. baseline creatinine runs ~ 2.0 - 2.5mg/dl in the last year her creatinine was higher before with rhabdo. improved with hydration. now creatinine better but came back in for volume overload (2) Hyperkalemia: Code(s): E87.5 - Hyperkalemia Status: Acute Assessment and Plan: due to K+ supplements and ARB use both on hold K 4.4 today. (3) Acute exacerbation of CHF (congestive heart failure): Qualifiers: Heart failure type: unspecified Qualified Code(s): I50.9 - Heart failure, unspecified Code(s): I50.9 - Heart failure, unspecified Status: Acute Assessment and Plan: edema. cxr showed mild pulmonary edema. echo shows diastolic dysfunction. furosemide changed to PO. I/O negative again. Bicarbonate and potassium are both okay so far. edema better but not down to normal. continue oral loop diuretics (4) Hypertension: Code(s): I10 - Essential (primary) hypertension Status: Chronic Assessment and Plan: systolic 120s to 150s. it should improve as we diuresis (5) Anemia: Code(s): D64.9 - Anemia, unspecified Status: Acute Assessment and Plan: partly related to CKD and recent hospital admission hb 8.9 today Iron levels low. Will start iron sucrose. 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 Breathing is just okay. She is off oxygen. She has not been out of bed so she does not know how she will be when she walks. She is getting physical therapy occasionally. She has some pain in her arms just in the skin or the swelling was so bad. Exam Narrative: WDWN in NAD skin no rash. Some mild bruising and some scab where she scratched while so swollen. head ncat lungs clear cor reg no rub abd BS+ nontender and soft ext 1-2+ symmetrical edema. Objective Data Vital Signs Vital Signs: Vital Signs - 24 hr 04/08/23 12:00 04/08/23 13:28 04/08/23 15:35 Temperature 98.2 F Pulse Rate 63 Respiratory Rate 18 Blood Pressure 137/58 L Pulse Oximetry 96 Oxygen Delivery Room Air Room Air 04/08/23 16:00 04/08/23 18:50 04/08/23 19:00 Temperature 97.2 F L 97.7 F Pulse Rate 68 68 Respiratory Rate 18 18 Blood Pressure 134/97 H 145/89 H Pulse Oximetry 93 93 Oxygen Delivery Room Air 04/08/23 20:00 04/09/23 04:48 04/09/23 09:03 Temperature 98.5 F Pulse Rate 68 78 82 Respiratory Rate 18 20 Blood Pressure 151/74 H Pulse Oximetry 93 94 Oxygen Delivery Room Air Intake/Output Intake/Output: Intake & Output 04/06/23 04/07/23 04/08/23 04/09/23 23:59 23:59 23:59 23:59 Intake Total 1160 1190 100 Output Total 2450 2900 1000 Balance -1290 -1710 -900 Meds/Results Medications: Active Medications Generic Name Dose Route Start Last Admin Trade Name Freq PRN Reason Stop Dose Admin Acetaminophen 500 mg 04/06/23 20:36 Acetaminophen 500 Mg Tablet PO QHS PRN Insomnia Atorvastatin Calcium 40 mg 04/07/23 09:00 04/09/23 09:02 Atorvastatin 40 Mg Tablet PO 40 mg DAILY [facility] Administration Cyanocobalamin 1,000 mcg 05/07/23 09:00 Cyanocobalamin Inj 1,000 Mcg/Ml Vial SUB-Q MONTHLY [facility] Dextrose 12.5 gm 04/08/23 12:40 Dextrose 50% 25 Gm/50 Ml Syringe IV PUSH PRN PRN Hypoglycemia Protocol Diphenhydramine HCl 25 mg 04/06
[2023-04-09 11:52] LABS: Glucose Point of Care 252 mg/dl (65-105)
[2023-04-09 13:54] LABS: Glucose Point of Care 231 mg/dl (65-105)
[2023-04-09 14:21] LABS: Alveolar/Arterial O2 Gradient 82.9 mmHg; Base Excess ABG 4.6 mEq/l (+/-2.0); Fractional Inspired Oxygen 24 %; HCO3 ABG 26.9 mEq/l (22.0-26.0); Oxygen Content ABG 12.9 %vol (16.0-22.0); Oxygen Saturation ABG 90.3 % (95.0-100.0); Oxyhemoglobin 88.2 % THb (90.0-100.0); PCO2 ABG 31.8 mmHg (35.0-45.0); PO2 ABG 50.4 mmHg (80.0-100.0); Total Hemoglobin 10.4 g/dL (12.0-18.0)
[2023-04-09 14:22] LABS: Device ROOM AIR; Modified Allen's Test Pass; Site Drawn RIGHT RADIAL; pH ABG 7.545 (7.350-7.450)
[2023-04-09] MEDS: DOXYCYCLINE HYCLATE 100 MG TABLET PO (15:41)
[2023-04-09 16:53] LABS: Glucose Point of Care 239 mg/dl (65-105)
[2023-04-09] MEDS: IRON SUCROSE COMPLEX 200 MG in SODIUM CHLORIDE 0.9% IV 50 ML 120 MG IVPB (17:11)
[2023-04-09] MEDS: levoFLOXacin 500 MG TABLET PO (17:13)
[2023-04-09] MEDS: FUROSEMIDE 20 MG TABLET 60 MG PO (17:13)
[2023-04-09] MEDS: INSULIN ASPART (*BKC) 100 UNITS/ML 12 UNITS SUB-Q (17:13)
[2023-04-09 19:53] LABS: Glucose Point of Care 192 mg/dl (65-105)
[2023-04-09] MEDS: ALBUTEROL SULFATE NEB 2.5 MG/3 ML INH 10 MG INHALATION (20:38)
[2023-04-09] MEDS: IPRATROPIUM BR 0.02% INH SOLN 0.5 MG/2.5 ML VIAL 1 MG INHALATION (20:38)
[2023-04-09 20:43] LABS: Alveolar/Arterial O2 Gradient 94.4 mmHg; Base Excess ABG 2.4 mEq/l (+/-2.0); Fractional Inspired Oxygen 28 %; HCO3 ABG 25.2 mEq/l (22.0-26.0); Oxygen Content ABG 15.2 %vol (16.0-22.0); Oxygen Saturation ABG 94.8 % (95.0-100.0); Oxyhemoglobin 92.7 % THb (90.0-100.0); PO2 ABG 66.3 mmHg (80.0-100.0); PO2 FiO2 Ratio Arterial Blood 2.37 %; Total Hemoglobin 11.6 g/dL (12.0-18.0); pH ABG 7.501 (7.350-7.450)
[2023-04-09 20:45] LABS: Site Drawn RIGHT RADIAL
[2023-04-09 20:46] LABS: Device NASAL CANNULA; Modified Allen's Test Pass
[2023-04-09 20:53] LABS: CRP 6.5 mg/dL (<1.0)
[2023-04-09] MEDS: FUROSEMIDE INJ 40 MG/4 ML VIAL 20 MG IV PUSH (21:08)
[2023-04-09 21:12] LABS: Basophils Percent Auto 0.1 % (0.2-1.2); Hematocrit 28.7 % (37.0-47.0); Hemoglobin 8.9 g/dL (12.0-15.0); Immature Granulocyte Absolute 0.09 K/mm3 (0.00-0.031); Immature Granulocyte Percent A 0.6 % (0-0.5); Lymphocytes Absolute Auto 0.12 K/mm3 (0.9-3.2); Lymphocytes Percent Auto 0.8 % (18.3-44.2); Mean Corpuscular Hemoglobin 32.4 pg (26-34); Mean Corpuscular Volume 104.4 fl (80-100); Mean Platelet Volume 9.6 fl (7.4-10.4); Monocytes Absolute Auto 0.2 K/mm3 (0.1-0.6); Monocytes Percent Auto 1.6 % (2.6-8.5); Neutrophils Absolute Auto 13.7 K/mm3 (1.3-6.7); Neutrophils Percent Auto 96.9 % (45.5-73.1); Platelet Count Result 260 k/mm3 (150-375); Red Blood Count 2.75 M/mm3 (4.2-5.4); Red Cell Distribution Width 14.7 % (11.5-14.5); White Blood Count 14.2 K/mm3 (4.5-10.0)
[2023-04-09 21:20] LABS: Appearance Urine Clear (Clear); Bacteria Urine None Seen /hpf; Bilirubin Urine Negative (Negative); Blood Urine 1+ (Negative); Color Urine Yellow (Yellow); Glucose Urine UA Negative (Negative); Ketones Urine Negative (Negative); Leukocyte Esterase Ur Trace LEU/UL (Negative); Nitrate Urine Negative (Negative); Protein Urine Negative (Negative); Specific Grav Ur 1.011 (1.001-1.035); Squamous Epithelial Cell Urine None seen /hpf (Few); Urobilinogen Urine 0.2 mg/dL (<2.0); WBC Urine 0-5 /hpf
[2023-04-09 21:22] LABS: Add Urine Microscopic? YES
[2023-04-09 21:24] LABS: Lactic Acid Reflex 3.1 mmol/L (0.7-2.0)
[2023-04-09 21:27] LABS: Alanine Aminotransferase 25 U/L (6-35); Albumin Level 3.3 g/dL (3.5-5.1); Alkaline Phosphatase 50 U/L (38-126); Anion Gap 9 mmol/L (8-16); Aspartate Amino Transferase 40 U/L (14-36); Bilirubin,Total 1.2 mg/dL (0.2-1.3); Blood Urea Nitrogen 79 mg/dL (7-17); Calcium 9.4 mg/dL (8.4-10.2); Carbon Dioxide 28 mmol/L (22-30); Chloride 99 mmol/L (98-107); Estimated CRCL calculation 22 ml/min; Estimated Glomerular Filt Rate 20; Glucose 163 mg/dL (65-110); Potassium 3.3 mmol/L (3.4-5.0); Sodium 136 mmol/L (137-145)
[2023-04-09 21:38] LABS: Platelet Estimate Adequate (Adequate)
[2023-04-09 21:39] LABS: Macrocytosis 1+ (NORMAL); Polychromasia 1+ (NORMAL); Schistocytes None Seen (NORMAL)
[2023-04-09] MEDS: CEFEPIME 2 GM/NS 50 ML 2 GM/50 ML BAG IVPB (22:05)
[2023-04-09] MEDS: metroNIDAZOLE 500 MG/ISO 100ML 500 MG/100 ML BAG 100 MG IVPB (22:05)
--- NOTE | 2023-04-09 22:47 | ECG_ITS ---
Measurements Intervals [place] Rate: 127 P: CO: 0 QRS: 2 QRSD: 99 T: 69 QT: 314 QTc: 458 Interpretive Statements ATRIAL FIBRILLATION WITH RAPID VENTRICULAR RESPONSE CONSIDER ANTERIOR INFARCT, AGE INDETERMINATE CONSIDER INFERIOR INFARCT, AGE INDETERMINATE BORDERLINE ST-T WAVE ABNORMALITY- HIGH LATERAL LEADS BASELINE ARTIFACT- I, II, III, AVR, AVL, AVF, V1-V6 ABNORMAL ECG COMPARED TO ECG 04/06/2023 11:53:01 HEART RATE HAS INCREASED Electronically Signed On 04-10-2023 8:12:25 CDT by Javier Carbone D.O.
[2023-04-09] MEDS: ACETAMINOPHEN 500 MG TABLET PO (22:57)
--- NOTE | 2023-04-09 23:24 | PM.CCN ---
Critical Care Event Note Summary Code activated: No Narrative: Approximately 20:20 rapid response was called. Nursing staff called rapid response because patient was lethargic, less responsive and with increased respiratory effort. Patient had been placed on 4 L nasal cannula. The patient had tight lung sounds and an hour long nebulizer was provided. The patient's breathing did seem to improve. The patient felt hot to touch and was tremulous. Patient was noted to have anasarca. On exam the patient had a hot erythematous right upper extremity from the mid forearm up past the insertion of the midline. Midline had evidently been placed earlier today. The patient would answer questions and state that she knew where she was but then would not provide an actual answer. Stat labs were performed which demonstrated [place] came [place] 33992. The patient had received 1 dose of p.o. Levaquin and 1 dose of doxycycline earlier in the evening. Stat labs were ordered including CBC, CMP, lactic acid procalcitonin and an ABG. ABG demonstrated respiratory alkalosis. CMP demonstrated mild hypokalemia, minimally increased creatinine from earlier in the day 2.2-2.3 and relatively stable BUN. Lactic acid was elevated at 3. Patient is not a candidate for additional IV fluids due to her heart failure. Echocardiogram from the 2nd was reviewed which demonstrated vfbe-[id number] aortic stenosis, EF 65-70% elevated E/E, and grade 1 diastolic dysfunction. Some hypoalbuminemia was also noted. Stat blood cultures were obtained and are pending. Stat UA with reflex was ordered and was relatively unremarkable. Given the erythema the patient's left arm with marked warmth and discomfort I suspect she may have a cellulitis. However her chest x-ray also demonstrates some left lower lobe atelectasis versus pneumonia that is new compared to x-ray from [address] patient on broadened antibiotic coverage with cefepime Flagyl and vancomycin to cover for possible cellulitis and diabetic patient. Unfortunately I do not feel comfortable giving the patient Levaquin or azithromycin given her AFib with now RVR for atypical bacterial coverage. Will check urine pneumococcal antigen, respiratory PCR for mycoplasma and urine Legionella antigen. The patient's heart rate did climbed to 150 when she spiked a temperature of a 103?. Unfortunately cannot give the patient fluid boluses given her heart failure history. Will give Tylenol for her fever. Her heart rate is likely driven by her fever. However nursing staff is uncomfortable with the patient and her change in condition on the medical floor. Patient is also developing encephalopathy. Her picture is consistent with severe sepsis with end-organ affect. The patient would benefit from closer monitoring in the intermediate unit. Subsequently transfer has been ordered. If the patient's heart rate continued to climb despite treatment of her fever I may consider placing the patient on a Cardizem drip were giving some pushes of Lopressor. The patient's Lasix was increased today likely due to her persistent edema. However may have also been part of her work of breathing. Given that is the patient is acutely septic she may benefit from decreasing Lasix dose. Will monitor closely and consider adjustments in Lasix in a.m.. 70 minute spent in critical care activities Due to a high probability of clinically significant, life threatening deterioration, the patient required my highest level of preparedness to intervene emergently and I personally spent this critical care time directly and personally managing the patient. This critical care time included obtaining a history; examining the patient; pulse oximetry; ordering and review of studies; arranging urgent treatment with development of a management plan; evaluation of patient's response to treatment; frequent reassessment; and discussions with other providers. It was exclusive of separately
[2023-04-10] VITALS (54 sets, daily range): BP systolic 81–132; BP diastolic 37–99; PULSE 66–146; RESP 19–44; TEMP 37.4–39.9; O2SAT 96–100
[2023-04-10 00:09] LABS: Reflex Lactic Acid Yes or No Add Lactic
[2023-04-10] MEDS: VANCOMYCIN 1,250 MG/NS 250 ML 1,250 MG/250 ML BAG 166.67 MG IVPB ×2 (00:13→01:55)
--- NOTE | 2023-04-10 00:18 | PC.NURSE ---
This patient, Maude Arias, was received from [[facility] room [facility] ] on 04/09/23 at 2340. Patient/family oriented to unit policies and routines
--- NOTE | 2023-04-10 00:18 | PC.NURSE ---
Pt received from [facility] at 2340. Pt is unable to speak, although she nods her head appropriately. At 2343, pt was noted to have enlarged, non-reactive left pupil. Octavio, RN also at bedside, notified Dr. Hobbs of pt's condition. Pt unable to hold left arm up against gravity. No purposeful movement to left lower extremity. Pt has notable weakness to RUE and RLE, but is able to move extremities appropriately when asked. Pt can stick her tongue out, no deviation noted although tongue is coated white. Dr. Hobbs came to bedside to evaluate pt. Pt taken for STAT head CT. Awaiting results. Currently, pt's condition has not changed.
[2023-04-10] MEDS: ACETAMINOPHEN 650 MG SUPPOSITORY RECTAL (01:04)
--- NOTE | 2023-04-10 01:11 | PC.NURSE ---
Attempted to call Patient's brother David multiple times to make aware of condition change and transfer to IMU. Each time there is a phone number disconnected message. Looked through past admit for different contact information, checked paper chart, and called [facility] to see if their contact numbers differed or if they had additional names. The only contact listed at [facility] is patient's brother Donald and the phone number is the same we have listed.
--- NOTE | 2023-04-10 01:15 | PC.NURSE ---
Addendum entered by Alissa Woodruff RN 04/10/23 04:01: Discussed with Dr. Hobbs BMP results that were drawn during the rapid response. K was 3.[address] Hobbs aware. No new orders at this time as pt has been hyperkalemic during admission. Original Note: Discussed head CT results with Dr. Hobbs. Updated Dr. Hobbs of pt's current VS, pt's temp 103.9. Pt's condition has remained unchanged. She remains non-verbal, left pupil is dilated and non-reactive, pt is unable to purposefully move left side of her body. No new orders at this time. Pt treated with rectal Tylenol per order and ice packs placed behind pt's neck, axilla, and under bilateral knees.
[2023-04-10 01:47] LABS: Glucose Point of Care 136 mg/dl (65-105)
[2023-04-10 01:52] LABS: Lactic Acid 4.4 mmol/L (0.7-2.0)
[2023-04-10] MEDS: SODIUM CHLORIDE 0.9% IV 1,000 ML 500 ML IV CONT (03:01)
--- NOTE | 2023-04-10 03:13 | PC.NURSE ---
Discussed [facility] results with Dr. Hobbs. SVI 36, CI 4.8, 0.5% SVI change. Per Dr. Hobbs, administer bolus, d/c continuous fluids. Pt's condition/assessment is unchanged.
[2023-04-10] MEDS: metroNIDAZOLE 500 MG/ISO 100ML 500 MG/100 ML BAG 100 MG IVPB ×3 (05:00→22:00)
--- NOTE | 2023-04-10 05:14 | PC.NURSE ---
Pt remains non-verbal. Left eye remains fixed and dilated. Pt is now able to move left arm and left leg. Both extremities are weak.
--- NOTE | 2023-04-10 07:25 | PC.NURSE ---
Pt remains non-verbal. Left pupil is slightly larger than right, dilation has improved. Pt's movement in LUE and LLE has improved, but remains weak. Facial symmetry noted.
[2023-04-10] MEDS: LEVALBUTEROL NEB 1.25 MG/3 ML 0.63 MG INHALATION ×3 (08:13→20:04)
[2023-04-10] MEDS: dilTIAZem 100 MG/100 ML 100 MG/100 ML BAG IV CONT (08:26)
--- NOTE | 2023-04-10 09:43 | WPDCNINT ---
Assessment and Plan Assessment and plan (1) Atrial fibrillation with RVR: Code(s): I48.91 - Unspecified atrial fibrillation Status: Acute Assessment and Plan: Patient in AFib with RVR She is currently on Cardizem infusion but due to hypotension I will switch her to amiodarone infusion She was on anticoagulation in the past but it has been on hold from the rehab which appears likely secondary to the bruise that she has on left leg although there is no documentation available. She was discharged on Eliquis from the hospital but on readmission it was not on her medication list from the rehab. At this time I will start her on aspirin and monitor hemoglobin (2) Sepsis: Code(s): A41.9 - Sepsis, unspecified organism Status: Acute Assessment and Plan: Possibly secondary to cellulitis and pneumonia Procalcitonin is 3.0 white count is elevated UA slightly abnormal but does not seem impressive for UTI Blood urine cultures ordered Urine Legionella pneumococcal antigen and mycoplasma IgM ordered and pending CT chest abdomen pelvis ordered and done although report is pending Continue empiric vancomycin and cefepime. She did receive dose of doxycycline and Levaquin on admission which has been discontinued (3) Congestive heart failure: Code(s): I50.9 - Heart failure, unspecified Status: Acute Assessment and Plan: Patient has history of diastolic dysfunction and obin-[id number] aortic stenosis She has diffuse anasarca which is likely combination of congestive heart failure and chronic kidney disease Will re-attempt diuresis once hemodynamically stable (4) Chronic kidney disease: Qualifiers: Chronic kidney disease stage: stage 4 (severe) Qualified Code(s): N18.4 - Chronic kidney disease, stage 4 (severe) Code(s): N18.9 - Chronic kidney disease, unspecified Status: Acute Assessment and Plan: Patient has history of chronic kidney disease Creatinine appears close to baseline Nephrology is following Patient is volume overloaded. Will re-attempt diuresis once hemodynamically stable Maintain mean arterial pressure with vasopressors (5) Type 2 diabetes mellitus with hyperglycemia, with long-term current use of insulin: Code(s): E11.65 - Type 2 diabetes mellitus with hyperglycemia; Z79.4 - superintendent container terminal (current) use of insulin Status: Chronic Assessment and Plan: Sliding scale Start tube feeds (6) History of recurrent deep vein thrombosis (DVT): Code(s): Z86.718 - Personal history of other venous thrombosis and embolism Status: Acute Assessment and Plan: As above mention patient was discharged on Eliquis but on readmission it was not on her medication list and I suspected was discontinued due to bruising on her left leg Most recent venous Dopplers done in 10/27, 04/29 have been negative for any evidence of DVT At this time start DVT prophylaxis Lovenox due to high risk Will re-evaluate for systemic therapeutic anticoagulation (7) Acute respiratory failure: Code(s): J96.00 - Acute respiratory failure, unspecified whether with hypoxia or hypercapnia Status: Acute Assessment and Plan: Patient emergently intubated on arrival to ICU CT scan of the chest done and report pain Patient placed on CMV 400/20/100/8 Repeat ABG ordered Chest x-ray reviewed and shows adequate positioning of ET tube (8) Encephalopathy: Code(s): G93.40 - Encephalopathy, unspecified Status: Acute Assessment and Plan: On my assessment patient was awake and following commands although she appeared generalized weak and in respiratory distress. Sleep right pupil was slightly weaker than the left but both reactive light. Head CT was negative for any acute change Patient now intubated and sedated ABG now performed due to emergent situation which she was intubated Check ammonia and TSH level Plan DVT prophylaxis -Lovenox subQ Stress ulce
--- NOTE | 2023-04-10 10:08 | PC.NURSE ---
This patient, Maude Arias, was received from [206-2 ] on 04/10/23 at 1000. Patient/family oriented to unit policies and routines. Report received from MARTINA Puckett @ [phone]
[2023-04-10] MEDS: ROCURONIUM BROMIDE 50 MG/5 ML VIAL IV PUSH (10:10)
[2023-04-10] MEDS: ETOMIDATE 20 MG/10 ML AMPUL IV PUSH (10:10)
--- NOTE | 2023-04-10 10:15 | PM.CCN ---
Critical Care Event Note Summary Code activated: No Narrative: Around midnight nursing staff notified me that the patient had unequal pupils. I went to re-evaluate the patient and found the patient have a fixed pupil on the left. The patient had recently had nebulizer treatment hour long with albuterol and Atrovent. His suspected that this could be causing the dilated pupil However the patient had complete neglect the the left upper extremity and had no resistance to gravity. The patient was still unable to complete a full neuro exam. She was essentially nonverbal and could only nod yes and no to questions. A stat CT of the head was ordered. Results were personally reviewed and demonstrated no acute infarct or bleed but was limited due to motion artifact. Patient is not a candidate for tPA by nature of her age and her acute illness with severe sepsis. Also we do not know the patient's last known well. Nursing staff had document patient was alert orient x4 conversational. However since shift change the patient had not been really talking to nurses. During rapid response patient was saying a few words but they were for the most part incoherent in seemed appropriate for the situation she was having episodes of staring and thought that me having acute metabolic encephalopathy. I went and re-evaluate the patient after the CT and similar findings were found. A few hours later the patient's dilated pupil had actually resolved. But patient was still not able to speaks she was able to say a few words by the end of the night. Patient did have equal strength plantar flexion and dorsiflexion. She had a weak community education specialist with the right handed did try to resist gravity with right arm but probably only had about 3/5 strength. On review of patient's chart the patient has not been receiving any anticoagulation. During her prior hospitalization she had been on Eliquis. The patient was noted to have ecchymosis to her hip I suppose that her Eliquis may have been held due to this. However this is unclear because the patient appeared to have the bruising her hip during her last hospital stay. At this point I cannot give the patient heparin for anticoagulation for her atrial fibrillation that is been present since her last hospitalization because if she has had a CVA she is at high risk for hemorrhagic conversion. I did consider discussed the patient case with Neurology at tertiary [facility] but again patient is not a candidate for tPA we do not know her last well. Her neurologic symptoms would not be managed any differently that tertiary care than they to be at this facility. Patient will eventually need an MRI when more clinically stable. The patient's repeat lactic acid was greater than 4. I did order 1 time bolus of 1 L at 500 mL an hour. I asked nurses staff to complete a cheetah which I later found out was not fluid responsive. Will continue monitor closely him IMU. The patient's heart rate has improved with these measures and for the most part is around 113. The patient did have to be placed under cooling blanket due to severe intractable fever despite antipyretic therapy with Tylenol. 50 minute spent in critical care activities. Due to a high probability of clinically significant, life threatening deterioration, the patient required my highest level of preparedness to intervene emergently and I personally spent this critical care time directly and personally managing the patient. This critical care time included obtaining a history; examining the patient; pulse oximetry; ordering and review of studies; arranging urgent treatment with development of a management plan; evaluation of patient's response to treatment; frequent reassessment; and discussions with other providers. It was exclusive of separately billable procedures and treating other patients and teaching time. Please see Assessment and Plan section and the rest of the note for further information on patient assess
[2023-04-10] MEDS: MIDAZOLAM HCL (*CRX) 2 MG/2 ML VIAL 4 MG IV PUSH (10:45)
--- NOTE | 2023-04-10 11:19 | PM.IMPN ---
Progress Note: A&P Assessment and Plan (1) Atrial fibrillation with RVR: Code(s): I48.91 - Unspecified atrial fibrillation Status: Acute Assessment and Plan: Patient in AFib with RVR on amiodarone infusion She was on anticoagulation in the past but it has been on hold from the rehab which appears likely secondary to the bruise that she has on left leg although there is no documentation available. She was discharged on Eliquis from the hospital but on readmission it was not on her medication list from the rehab. (2) Sepsis: Code(s): A41.9 - Sepsis, unspecified organism Status: Acute Assessment and Plan: Possibly secondary to cellulitis and pneumonia Procalcitonin is 3.0 white count is elevated UA slightly abnormal but does not seem impressive for UTI Blood urine cultures ordered Urine Legionella pneumococcal antigen and mycoplasma IgM ordered and pending CT chest abdomen pelvis ordered and done although report is pending Continue empiric vancomycin and cefepime. She did receive dose of doxycycline and Levaquin on admission which has been discontinued (3) Congestive heart failure: Code(s): I50.9 - Heart failure, unspecified Status: Acute Assessment and Plan: Patient has history of diastolic dysfunction and dxeu-tj-kzgjgtus aortic stenosis She has diffuse anasarca which is likely combination of congestive heart failure and chronic kidney disease Will re-attempt diuresis once hemodynamically stable (4) Chronic kidney disease: Qualifiers: Chronic kidney disease stage: stage 4 (severe) Qualified Code(s): N18.4 - Chronic kidney disease, stage 4 (severe) Code(s): N18.9 - Chronic kidney disease, unspecified Status: Acute Assessment and Plan: Patient has history of chronic kidney disease Creatinine appears close to baseline Nephrology is following Patient is volume overloaded. Will re-attempt diuresis once hemodynamically stable Maintain mean arterial pressure with vasopressors (5) Type 2 diabetes mellitus with hyperglycemia, with long-term current use of insulin: Code(s): E11.65 - Type 2 diabetes mellitus with hyperglycemia; Z79.4 - joint terminal attack controller (current) use of insulin Status: Chronic Assessment and Plan: Sliding scale Start tube feeds (6) History of recurrent deep vein thrombosis (DVT): Code(s): Z86.718 - Personal history of other venous thrombosis and embolism Status: Acute Assessment and Plan: As above mention patient was discharged on Eliquis but on readmission it was not on her medication list and I suspected was discontinued due to bruising on her left leg Most recent venous Dopplers done in 10/27, 04/29 have been negative for any evidence of DVT At this time start DVT prophylaxis Lovenox due to high risk Will re-evaluate for systemic therapeutic anticoagulation (7) Acute respiratory failure: Code(s): J96.00 - Acute respiratory failure, unspecified whether with hypoxia or hypercapnia Status: Acute Subjective Date/time seen: 04/10/23 11:19 Interval history: Patient was hypoxic, tachypneic, tachycardic this morning. Transfer to ICU. Sedated intubated Review of Systems Review of Systems: ROS unobtainable: Yes unobtainable due to endotracheal tube Exam Narrative: - GENERAL: Sedated and intubated - EYES: EOMI. Anicteric. - HENT: Moist mucous membranes. - LUNGS: tachypneic. slightly coarse lung sounds - CARDIOVASCULAR: Irregular rate and rhythm. No murmur. - ABDOMEN: Soft, obese, non-tender and non-distended. No palpable masses. - EXTREMITIES: 2+ pitting edema throughout, peripheral pulses intact - NEUROLOGIC: No focal neurological deficits. CN II-XII grossly intact. - PSYCHIATRIC: Awake, Alert and oriented x 3. Appropriate mood and affect. - SKIN: No rashes or lesions. Warm. - LYMPH: No cervical lymphadenopathy. Objective Data Vital Signs Vital Signs: Vital Signs - 24 hr
[2023-04-10 11:20] LABS: Alveolar/Arterial O2 Gradient 274.7 mmHg; Base Excess ABG -2.5 mEq/l (+/-2.0); Fractional Inspired Oxygen 100 %; HCO3 ABG 24.2 mEq/l (22.0-26.0); Oxygen Content ABG 16.1 %vol (16.0-22.0); Oxygen Saturation ABG 99.8 % (95.0-100.0); Oxyhemoglobin 98.2 % THb (90.0-100.0); PCO2 ABG 50.1 mmHg (35.0-45.0); PO2 ABG 388.2 mmHg (80.0-100.0); PO2 FiO2 Ratio Arterial Blood 3.88 %; Total Hemoglobin 10.9 g/dL (12.0-18.0); pH ABG 7.301 (7.350-7.450)
[2023-04-10 11:21] LABS: Device VENTILATOR; Modified Allen's Test Pass; Site Drawn RIGHT RADIAL
[2023-04-10 11:22] LABS: Arterial Blood Gas PEEP 8 cmH2O; Arterial Blood Gas Tidal Volume 400 ml; Arterial Blood Gas Vent Mode CMV; Arterial Blood Gas Ventilator rate 20 /MIN
[2023-04-10 11:27] LABS: Basophils Absolute Auto 0.1 K/mm3 (0.0-0.1); Basophils Percent Auto 0.3 % (0.2-1.2); Hematocrit 29.6 % (37.0-47.0); Hemoglobin 8.9 g/dL (12.0-15.0); Immature Granulocyte Absolute 0.18 K/mm3 (0.00-0.031); Immature Granulocyte Percent A 1.2 % (0-0.5); Lymphocytes Absolute Auto 0.36 K/mm3 (0.9-3.2); Lymphocytes Percent Auto 2.3 % (18.3-44.2); Mean Corpuscular HGB Conc 30.1 g/dl (32-36); Mean Corpuscular Hemoglobin 32.1 pg (26-34); Mean Corpuscular Volume 106.9 fl (80-100); Mean Platelet Volume 9.5 fl (7.4-10.4); Monocytes Absolute Auto 0.6 K/mm3 (0.1-0.6); Monocytes Percent Auto 3.9 % (2.6-8.5); Neutrophils Absolute Auto 14.3 K/mm3 (1.3-6.7); Neutrophils Percent Auto 92.3 % (45.5-73.1); Nucleated Red Blood Cells Perc 0.1 % (0.0-0.2); Platelet Count Result 208 k/mm3 (150-375); Red Blood Count 2.77 M/mm3 (4.2-5.4); Red Cell Distribution Width 14.6 % (11.5-14.5); White Blood Count 15.4 K/mm3 (4.5-10.0)
--- NOTE | 2023-04-10 11:32 | WPDPROCEDUR ---
Procedures Intubation Intubation Date: 04/10/23 Intubation Time: 10:30 Consent: Patient was in respiratory distress full code. No POA will below. Patient noted her head yes when discussion of intubation was done with the patient although due to emergent situation procedure was done as medical necessity A pre-procedural Time-Out was completed immediately before starting the procedure and confirmed: Patient Identification, Site, Procedure, Patient Position and the Availability of Requisite Equipment: Yes Sedative: etomidate Mg given: 20 Paralytic: rocuronium Mg given: 50 Laryngoscope: fiber optic video scope ET tube size: cuffed Tube secured depth (cm): 25 Tube secured location: lips Tube placement confirmation: visualized tube passing through cords, equal breath sounds bilaterally, no breath sounds over epigastrium and confirmation by capnometry Patient tolerated procedure: well Intubation complications: hypoxia Additional comments: Intubation was attempted by Dr. Rod under my supervision. On 1st attempt although he was able to have a good view of the vocal cords he was not able to advance the endotracheal tube with the trachea. I took over and bent the stylet more acutely and was able to intubate patient without any difficulty on 2nd attempt. Patient transiently dropped her saturation for few seconds which quickly recovered with bag ventilation.
--- NOTE | 2023-04-10 11:34 | WPDPROCEDUR ---
Procedures Central Line Placement Right IJ: Central Line Date: 04/10/23 Central Line Time: 11:00 Performed Emergently - Given emergent patient condition, temporal constraints may have precluded informed consent.: Yes Consent: Patient was in respiratory distress and was emergently intubated. She had poor IV access and need multiple in infusion including vasopressors. I did mention to patient prior to intubation that she will need central venous catheter although seizure was done as medical necessity as I do not not know how much patient understood that time Time Out Performed: Yes Patient Position: trendelenburg Patient placed on monitor/pulse ox: Yes Provider Prep: mask, sterile gown, sterile gloves, Max. sterile barrier precautions, cap and hand hygiene with conventional soap/water or alcohol based hand rub Central line prep: 2% Chlorhexidine scrub Sterile US Technique with sterile gel/sterile probe covers: Yes Central line lumen inserted: triple Length (cm): 16 Depth of Insertion (cm): 16 Post Procedure: sutured in place, good blood return, all ports aspirated, flushed, capped, transparent dressing and aseptic technique maintained throughout procedure Post procedure x-ray: tip of catheter in good position Patient tolerated procedure: well Complications: none Additional comments: Catheter tip is in right atrium. I will withdraw central line by 3 cm
[2023-04-10 11:38] LABS: Ammonia < 9 umol/L (9-30)
[2023-04-10 11:39] LABS: Lactic Acid Reflex 2.3 mmol/L (0.7-2.0)
[2023-04-10 11:39] LABS: Alanine Aminotransferase 32 U/L (6-35); Albumin Level 3.1 g/dL (3.5-5.1); Alkaline Phosphatase 43 U/L (38-126); Anion Gap 12 mmol/L (8-16); Aspartate Amino Transferase 105 U/L (14-36); Blood Urea Nitrogen 84 mg/dL (7-17); Calcium 8.5 mg/dL (8.4-10.2); Carbon Dioxide 26 mmol/L (22-30); Chloride 101 mmol/L (98-107); Estimated CRCL calculation 20 ml/min; Estimated Glomerular Filt Rate 18; Glucose 228 mg/dL (65-110); Magnesium 1.5 mg/dL (1.6-2.3); Potassium 3.9 mmol/L (3.4-5.0); Sodium 139 mmol/L (137-145)
[2023-04-10 11:49] LABS: Anisocytosis 1+ (NORMAL); Hypochromasia 1+ (NORMAL); Platelet Estimate Adequate (Adequate); Schistocytes None Seen (NORMAL)
[2023-04-10 11:53] LABS: Glucose Point of Care 146 mg/dl (65-105)
[2023-04-10] MEDS: MIDAZOLAM 100MG/NS 100ML(*CRX) 100 MG/100 ML BAG IV CONT (12:00)
[2023-04-10] MEDS: FENTANYL 2,500MCG/NS250ML(*CRX 2,500 MCG/250 ML BAG IV CONT (12:01)
[2023-04-10] MEDS: NOREPINEPHRINE 8 MG/D5W 250 ML 8 MG/250 ML BAG 9.38 MG IV CONT (12:02)
[2023-04-10 12:12] LABS: Procalcitonin 10.1 ng/mL
[2023-04-10] MEDS: ENOXAPARIN 30 MG/0.3 ML SYRINGE SUB-Q (12:14)
[2023-04-10] MEDS: AMIODARONE 150 MG/D5W 100 ML 150 MG/100 ML BAG 600 MG IV CONT (12:14)
[2023-04-10] MEDS: PANTOPRAZOLE SODIUM IV 40 MG VIAL IV PUSH (12:14)
[2023-04-10] MEDS: AMIODARONE 360 MG/D5W 200 ML 360 MG/200 ML BAG 33.33 MG IV CONT (12:15)
[2023-04-10] MEDS: VASOPRESSIN INJ 100 UNITS in DEXTROSE 5% 95 ML IV CONT (12:20)
[2023-04-10] MEDS: ALBUMIN HUMAN 5% 25 GM/500 ML BTL IV CONT (12:22)
[2023-04-10 12:27] LABS: Glucose Point of Care 227 mg/dl (65-105)
[2023-04-10] MEDS: INSULIN ASPART (*BKC) 100 UNITS/ML SUB-Q ×2 (12:27→17:40)
[2023-04-10 12:36] LABS: Thyroid Stimulating Hormone Reflex 0.981 uIU/mL (0.465-4.68)
--- NOTE | 2023-04-10 13:07 | P.PNNP_ITS ---
Progress Note: A&P Assessment and Plan (1) Chronic kidney disease, stage 4 (severe): Code(s): N18.4 - Chronic kidney disease, stage 4 (severe) Status: Chronic Assessment and Plan: * CKD due to DM, HTN, and vascular disease. * baseline creatinine runs ~ 2.0 - 2.5mg/dl in the last year * holding relatively stable with diuresis * follow repeat labs and UOP (2) Acute respiratory failure: Code(s): J96.00 - Acute respiratory failure, unspecified whether with hypoxia or hypercapnia Status: Acute Assessment and Plan: * intunated emergently on arrival to ICU due to impending resporatory failure * continue mechanical ventilation * weaning once more stable (3) Sepsis: Code(s): A41.9 - Sepsis, unspecified organism Status: Acute Assessment and Plan: * due to cellulitis +/- pneumonia * follow up on imaging * follow culture data * on empiric antibiotics * follow hemodynamics -- may need pressor support (4) Acute exacerbation of CHF (congestive heart failure): Qualifiers: Heart failure type: unspecified Qualified Code(s): I50.9 - Heart failure, unspecified Code(s): I50.9 - Heart failure, unspecified Status: Acute Assessment and Plan: * exam with edema/anasarca * cxr showed mild pulmonary edema * echo results noted * was on oral diuretic prior to transfer to ICU * resume diuresis when able (5) Atrial fibrillation with RVR: Code(s): I48.91 - Unspecified atrial fibrillation Status: Acute Assessment and Plan: * currently on amiodarone gt * not currently on anticoagulation -- unclear reasoning * follow telemetry (6) Anemia: Code(s): D64.9 - Anemia, unspecified Status: Acute Assessment and Plan: * partly related to CKD and recent hospital admission * iron deficiency noted - on venofer * follow trend of H/H (7) Encephalopathy: Code(s): G93.40 - Encephalopathy, unspecified Status: Acute Assessment and Plan: * difficult to assess at this time (intubated and on mechanical ventilation) * however, history noted * may need further neuroimaging (8) Type 2 diabetes mellitus with hyperglycemia, with long-term current use of insulin: Code(s): E11.65 - Type 2 diabetes mellitus with hyperglycemia; Z79.4 - terminal operator (current) use of insulin Status: Chronic Assessment and Plan: * following accu-checks * glycemic control per hospitalist/real estate services administrator Will continue to follow. Subjective Date/time seen: 04/10/23 13:07 Interval history: Follow-up for chronic kidney disease. Events noted overnight and earlier this morning -- rapid response yesterday evening due lethargy and altered mental status in association with Afib with RVR, elevated lactic acid, and fever; some concern for possible CVA as well based on neurological exam; cultures tushar and started on broad spectrum antibiotics; subsequently transferred to ICU for respiratory distress and emergently intubated and placed on mechanical ventilation; inititated on am iodarone gtt for Afrib with RVR. Exam Narrative: General: elderly but WD/WN female intubated/sedated Heart: tachycardic, IRRR, normal S1 and S2; no rub Lungs: coarse breath sounds Abdomen: soft, nontender, nondistended, positive bowel sounds Extremities: no cyanosis or clubbing; 2+ edema Skin: several areas of skin breakdown noted Objective Data Vital Signs Vital Signs:
--- NOTE | 2023-04-10 13:07 | PM.PNNEP ---
Progress Note: A&P Assessment and Plan (1) Chronic kidney disease, stage 4 (severe): Code(s): N18.4 - Chronic kidney disease, stage 4 (severe) Status: Chronic Assessment and Plan: CKD due to DM, HTN, and vascular disease. baseline creatinine runs ~ 2.0 - 2.5mg/dl in the last year holding relatively stable with diuresis follow repeat labs and UOP (2) Acute respiratory failure: Code(s): J96.00 - Acute respiratory failure, unspecified whether with hypoxia or hypercapnia Status: Acute Assessment and Plan: intunated emergently on arrival to ICU due to impending resporatory failure continue mechanical ventilation weaning once more stable (3) Sepsis: Code(s): A41.9 - Sepsis, unspecified organism Status: Acute Assessment and Plan: due to cellulitis +/- pneumonia follow up on imaging follow culture data on empiric antibiotics follow hemodynamics -- may need pressor support (4) Acute exacerbation of CHF (congestive heart failure): Qualifiers: Heart failure type: unspecified Qualified Code(s): I50.9 - Heart failure, unspecified Code(s): I50.9 - Heart failure, unspecified Status: Acute Assessment and Plan: exam with edema/anasarca cxr showed mild pulmonary edema echo results noted was on oral diuretic prior to transfer to ICU resume diuresis when able (5) Atrial fibrillation with RVR: Code(s): I48.91 - Unspecified atrial fibrillation Status: Acute Assessment and Plan: currently on amiodarone gt not currently on anticoagulation -- unclear reasoning follow telemetry (6) Anemia: Code(s): D64.9 - Anemia, unspecified Status: Acute Assessment and Plan: partly related to CKD and recent hospital admission iron deficiency noted - on venofer follow trend of H/H (7) Encephalopathy: Code(s): G93.40 - Encephalopathy, unspecified Status: Acute Assessment and Plan: difficult to assess at this time (intubated and on mechanical ventilation) however, history noted may need further neuroimaging (8) Type 2 diabetes mellitus with hyperglycemia, with long-term current use of insulin: Code(s): E11.65 - Type 2 diabetes mellitus with hyperglycemia; Z79.4 - residential (current) use of insulin Status: Chronic Assessment and Plan: following accu-checks glycemic control per hospitalist/flour worker Will continue to follow. Subjective Date/time seen: 04/10/23 13:07 Interval history: Follow-up for chronic kidney disease. Events noted overnight and earlier this morning -- rapid response yesterday evening due lethargy and altered mental status in association with Afib with RVR, elevated lactic acid, and fever; some concern for possible CVA as well based on neurological exam; cultures tushar and started on broad spectrum antibiotics; subsequently transferred to ICU for respiratory distress and emergently intubated and placed on mechanical ventilation; inititated on amiodarone gtt for Afrib with RVR. Exam Narrative: General: elderly but WD/WN female intubated/sedated Heart: tachycardic, IRRR, normal S1 and S2; no rub Lungs: coarse breath sounds Abdomen: soft, nontender, nondistended, positive bowel sounds Extremities: no cyanosis or clubbing; 2+ edema Skin: several areas of skin breakdown noted Objective Data Vital Signs Vital Signs: Vital Signs Temp Pulse Resp BP Pulse Ox O2 Del Method O2 Flow Rate 04/10/23 12:00 120 H 04/10/23 12:00 100 Mechanical Ventilation 04/10/23 11:30 04/10/23 12:00 99.3 F 118 H 22 H 109/67 100 04/10/23 10:15 04/10/23 11:24 122 H 100 Mechanical Ventilation 04/10/23 10:20 127 H Mechanical Ventilation 04/10/23 12:35 100 26 H 04/10/23 12:35 100 26 H 04/10/23 12:20 140 H 98/71 L 04/10/23 12:15 146 H 109/67 09
[2023-04-10] MEDS: CENTRAL LINE FLUSH 10 ML IV PUSH ×3 (13:52→22:01)
[2023-04-10 14:25] LABS: Reflex Lactic Acid Yes or No Add Lactic
[2023-04-10 14:52] LABS: Lactic Acid 2.4 mmol/L (0.7-2.0)
[2023-04-10] MEDS: FLUCONAZOLE 100 MG TABLET 200 MG FEED TUBE (16:14)
[2023-04-10] MEDS: ACETAMINOPHEN 325 MG TABLET 650 MG PO (17:39)
[2023-04-10 17:41] LABS: Glucose Point of Care 261 mg/dl (65-105)
[2023-04-10] MEDS: AMIODARONE 360 MG/D5W 200 ML 360 MG/200 ML BAG 16.67 MG IV CONT (17:42)
[2023-04-10 21:51] LABS: Glucose Point of Care 285 mg/dl (65-105)
[2023-04-10] MEDS: TOLNAFTATE 1% POWDER 45 GM BTL 1 APPLIC TOPICAL (22:00)
[2023-04-10] MEDS: CEFEPIME 2 GM/NS 50 ML 2 GM/50 ML BAG IVPB (22:01)
[2023-04-10] MEDS: MINERAL OIL/WHITE PETROLATUM OINTMENT 1 APPLIC EACH EYE (22:01)
[2023-04-10] MEDS: NOREPINEPHRINE 8 MG/D5W 250 ML 8 MG/250 ML BAG 22.5 MG IV CONT (22:18)
[2023-04-11] VITALS (53 sets, daily range): BP systolic 84–146; BP diastolic 24–83; PULSE 81–121; RESP 21–31; TEMP 37.7–38.4; O2SAT 95–100; BMI 51.3
[2023-04-11] MEDS: INSULIN ASPART (*BKC) 100 UNITS/ML SUB-Q ×4 (00:12→18:18)
[2023-04-11 00:30] LABS: Glucose Point of Care 285 mg/dl (65-105)
[2023-04-11 00:30] LABS: Glucose Point of Care 286 mg/dl (65-105)
[2023-04-11] MEDS: LEVALBUTEROL NEB 1.25 MG/3 ML 0.63 MG INHALATION ×4 (02:25→19:43)
[2023-04-11] MEDS: ACETAMINOPHEN 325 MG TABLET 650 MG PO (04:05)
[2023-04-11] MEDS: AMIODARONE 360 MG/D5W 200 ML 360 MG/200 ML BAG 16.67 MG IV CONT ×2 (04:07→16:30)
[2023-04-11 05:47] LABS: Alveolar/Arterial O2 Gradient 153.3 mmHg; Base Excess ABG -7.1 mEq/l (+/-2.0); Carboxyhemoglobin 0.1 % THb (0-2.0); Fractional Inspired Oxygen 40 %; HCO3 ABG 18.9 mEq/l (22.0-26.0); Methemoglobin ABG 0.4 %THb (0-1.5); Oxygen Content ABG 15.7 %vol (16.0-22.0); Oxygen Saturation ABG 95.6 % (95.0-100.0); Oxyhemoglobin 94.8 % THb (90.0-100.0); PCO2 ABG 39.8 mmHg (35.0-45.0); PO2 ABG 86.1 mmHg (80.0-100.0); PO2 FiO2 Ratio Arterial Blood 2.15 %; Reduced Hemoglobin 4.7 %THb (0-5.0); Total Hemoglobin 11.7 g/dL (12.0-18.0)
[2023-04-11 05:48] LABS: Site Drawn RIGHT RADIAL; pH ABG 7.294 (7.350-7.450)
[2023-04-11 05:49] LABS: Device VENTILATOR; Modified Allen's Test Pass
[2023-04-11 05:50] LABS: Arterial Blood Gas PEEP 8 cmH2O; Arterial Blood Gas Tidal Volume 400 ml; Arterial Blood Gas Vent Mode CMV; Arterial Blood Gas Ventilator rate 24 /MIN
[2023-04-11 05:51] LABS: Hematocrit 26.6 % (37.0-47.0); Hemoglobin 7.8 g/dL (12.0-15.0); Mean Corpuscular HGB Conc 29.3 g/dl (32-36); Mean Corpuscular Hemoglobin 31.8 pg (26-34); Mean Corpuscular Volume 108.6 fl (80-100); Mean Platelet Volume 10.3 fl (7.4-10.4); Platelet Count Result 163 k/mm3 (150-375); Red Blood Count 2.45 M/mm3 (4.2-5.4); Red Cell Distribution Width 14.8 % (11.5-14.5); White Blood Count 9.1 K/mm3 (4.5-10.0)
[2023-04-11 06:05] LABS: Alanine Aminotransferase 51 U/L (6-35); Albumin Level 2.8 g/dL (3.5-5.1); Alkaline Phosphatase 51 U/L (38-126); Anion Gap 15 mmol/L (8-16); Aspartate Amino Transferase 156 U/L (14-36); Bilirubin,Total 2.5 mg/dL (0.2-1.3); Blood Urea Nitrogen 91 mg/dL (7-17); Calcium 7.5 mg/dL (8.4-10.2); Carbon Dioxide 23 mmol/L (22-30); Chloride 98 mmol/L (98-107); Estimated CRCL calculation 16 ml/min; Estimated Glomerular Filt Rate 14; Glucose 357 mg/dL (65-110); Magnesium 1.5 mg/dL (1.6-2.3); Potassium 3.8 mmol/L (3.4-5.0); Sodium 136 mmol/L (137-145)
[2023-04-11] MEDS: metroNIDAZOLE 500 MG/ISO 100ML 500 MG/100 ML BAG 100 MG IVPB ×3 (06:12→21:38)
[2023-04-11] MEDS: CENTRAL LINE FLUSH 10 ML IV PUSH ×3 (06:50→21:39)
--- NOTE | 2023-04-11 07:38 | PCPTNOTE ---
Patient transferred to ICU on 04/10/2023 due to change in medical status. Patient is intubated at this time. PT will discharge patient and await further orders when patient is able to participate in skilled therapy.
[2023-04-11] MEDS: SODIUM BICARBONATE 8.4% 50 MEQ/50 ML SYRINGE 100 MEQ IV PUSH (07:41)
[2023-04-11] MEDS: MAGNESIUM SULF 2 GM/WATER 50ML 2 GM/50 ML BAG IVPB (07:53)
[2023-04-11] MEDS: MULTIVITAMINS THERAPEUTIC TAB (*BKC) 1 TABLET PO (08:37)
[2023-04-11] MEDS: PANTOPRAZOLE SODIUM IV 40 MG VIAL IV PUSH ×2 (08:37→21:36)
[2023-04-11] MEDS: OMEGA 3 POLYUNSAT FATTY ACIDS 1 GM CAP 2 GM PO (08:37)
[2023-04-11] MEDS: INSULIN GLARGINE (*BKC) 100 UNITS/ML 10 UNITS SUB-Q (08:37)
[2023-04-11] MEDS: FLUCONAZOLE 100 MG TABLET FEED TUBE (08:37)
[2023-04-11] MEDS: MINERAL OIL/WHITE PETROLATUM OINTMENT 1 APPLIC EACH EYE ×2 (08:38→21:35)
[2023-04-11] MEDS: TOLNAFTATE 1% POWDER 45 GM BTL 1 APPLIC TOPICAL ×2 (08:39→21:38)
--- NOTE | 2023-04-11 08:49 | PCPTNOTE ---
PT not medically appropriate to participate in skilled therapy. Please re-order therapy when pt is appropriate.
--- NOTE | 2023-04-11 08:55 | WPDINTPN ---
Progress Note: A&P Assessment and Plan (1) Acute respiratory failure: Code(s): J96.00 - Acute respiratory failure, unspecified whether with hypoxia or hypercapnia Status: Acute Assessment and Plan: 04/10: Patient emergently intubated on arrival to ICU, likely related to altered mental status, septic shock, encephalopathy, inability to protect airway -currently on CMV mode of ventilation, peep of 8, 40% FiO2 -ABGs reviewed -chest x-ray this morning showed: Stable small pleural effusions. Stable airspace opacities at the lung bases, consistent with atelectasis versus pneumonia. Cardiomegaly. -sedated with fentanyl and Versed infusion, maintain RASS of 0 to -2 -continue bronchodilators 04/10CT scan of chest, abdomen and pelvis without contrast IMPRESSION: 1. Dependent airspace opacities of the lungs, consistent with atelectasis versus pneumonia. 2. Small pleural effusions. 3. Large hypodense area in the subcutaneous tissues of the right pelvis posteriorly and overlying the left hip which could reflect a soft tissue hematoma. Clinically correlate. (2) Septic shock: Code(s): A41.9 - Sepsis, unspecified organism; R65.21 - Severe sepsis with septic shock Status: Acute Assessment and Plan: -Possibly secondary to cellulitis and pneumonia -Procalcitonin is 3.0 white count is elevated -UA slightly abnormal but does not seem impressive for UTI 04/09: Blood cultures growing Staph aureus 09/08 bottles 04/09: MRSA screen pending 04/10: Pending 04/10: Urine Legionella pneumococcal antigen and mycoplasma IgM ordered and pending CT chest abdomen pelvis as above -Continue empiric vancomycin, Flagyl and cefepime 04/09. She did receive dose of doxycycline and Levaquin on admission which has been discontinued (3) Atrial fibrillation with RVR: Code(s): I48.91 - Unspecified atrial fibrillation Status: Acute Assessment and Plan: Patient presented with atrial fibrillation RVR, was on Cardizem infusion but due to hypotension was switched to amiodarone infusion -continue amiodarone infusion, rate controlled, remains in AFib -She was on anticoagulation in the past but it has been on hold from the rehab which appears likely secondary to the bruise that she has on left leg although there is no documentation available. Patient also has a left hip soft tissue hematoma on the CT scan of the abdomen and pelvis - She was discharged on Eliquis from the hospital on 04/02/2023 but on readmission it was not on her medication list from the rehab. -given patient's hematoma, bruising, anemia will hold anticoagulation at this time (4) Acute on chronic renal failure: Code(s): N17.9 - Acute kidney failure, unspecified; N18.9 - Chronic kidney disease, unspecified Status: Acute Assessment and Plan: Patient has a history of 6 stage 4 chronic kidney disease -currently in septic shock, worsening creatinine and likely related to hypotension -low urine output -CT scan of the abdomen and pelvis did not show any hydronephrosis -will obtain CK level, urine eosinophils and urine lytes -started patient on bicarb infusion -will also add albumin for intravascular volume expansion due to significant third-spacing likely due to septic shock -nephrology following the patient (5) Congestive heart failure: Code(s): I50.9 - Heart failure, unspecified Status: Acute Assessment and Plan: Patient has history of diastolic dysfunction and [id number] aortic stenosis She has diffuse anasarca which is likely combination of congestive heart failure and chronic kidney disease -unable to diurese at this time as patient is on 3 pressors (6) Type 2 diabetes mellitus with hyperglycemia, with long-term current use of insulin: Code(s): E11.65 - Type 2 diabetes mellitus with hyperglycemia; Z79.4 - nursing home (current) use of insulin Status: Chronic Assessment and Plan: Hyperglycemia, -continue sliding scale in
[2023-04-11] MEDS: SODIUM BICARBONATE 8.4% 150 MEQ in WATER, STERILE FOR INJECTION 950 ML 50 MEQ IV CONT (08:57)
[2023-04-11] MEDS: IRON SUCROSE COMPLEX 200 MG in SODIUM CHLORIDE 0.9% IV 50 ML 120 MG IVPB (08:59)
[2023-04-11] MEDS: ALBUMIN HUMAN 25% 25 GM/100 ML 100 ML IVPB ×3 (09:00→18:18)
[2023-04-11 09:11] LABS: Lactic Acid Reflex 3.4 mmol/L (0.7-2.0)
[2023-04-11] MEDS: NOREPINEPHRINE 8 MG/D5W 250 ML 8 MG/250 ML BAG 39.38 MG IV CONT (09:13)
--- NOTE | 2023-04-11 09:50 | P.PNNP_ITS ---
Progress Note: A&P Assessment and Plan (1) GURPREET (acute kidney injury): Code(s): N17.9 - Acute kidney failure, unspecified Status: Acute Assessment and Plan: * as noted by trend of labs * suspect due to ATN from sepsis, shock, and need for IV diuretics * urine output down which is concerning (since she is already volume overloaded) * she remains at risk for needed CAGER OPERATOR/dialysis (but given her hemodynamic instability, doubt she tolerate conventional HD) * follow trend of repeat labs and UOP (2) Chronic kidney disease, stage 4 (severe): Code(s): N18.4 - Chronic kidney disease, stage 4 (severe) Status: Chronic Assessment and Plan: * CKD due to DM, HTN, and vascular disease. * baseline creatinine runs ~ 2.0 - 2.5mg/dl in the last year (3) Septic shock: Code(s): A41.9 - Sepsis, unspecified organism; R65.21 - Severe sepsis with septic shock Status: Acute Assessment and Plan: * due to cellulitis +/- pneumonia * CT imaging noted * follow culture data: + blood culture (with Staph aureus) * on antibiotics * requiring vasopressor support - wean as tolerated (4) Acute respiratory failure: Code(s): J96.00 - Acute respiratory failure, unspecified whether with hypoxia or hypercapnia Status: Acute Assessment and Plan: * intubated emergently on arrival to ICU due to impending respiratory failure * complicated by volume overload, possible pneumonia, and sepsis * continue mechanical ventilation * weaning once more stable (5) Acute exacerbation of CHF (congestive heart failure): Qualifiers: Heart failure type: unspecified Qualified Code(s): I50.9 - Heart failure, unspecified Code(s): I50.9 - Heart failure, unspecified Status: Acute Assessment and Plan: * exam with edema/anasarca * imaging with small pleura effusions * echo results noted * was on diuretic prior to transfer to ICU - currently on hold due to hypotension * resume diuresis when able (6) Atrial fibrillation with RVR: Code(s): I48.91 - Unspecified atrial fibrillation Status: Acute Assessment and Plan: * currently on amiodarone gtt * not currently on anticoagulation on admission -- unclear reasoning * follow telemetry (7) Anemia: Code(s): D64.9 - Anemia, unspecified Status: Acute Assessment and Plan: * partly related to CKD and recent hospital admission * iron deficiency noted - on venofer * follow trend of H/H (8) Encephalopathy: Code(s): G93.40 - Encephalopathy, unspecified Status: Acute Assessment and Plan: * difficult to assess at this time (intubated and on mechanical ventilation) * however, history noted * may need further neuroimaging (9) Type 2 diabetes mellitus with hyperglycemia, with long-term current use of insulin: Code(s): E11.65 - Type 2 diabetes mellitus with hyperglycemia; Z79.4 - termite control service representative (curren t) use of insulin Status: Chronic Assessment and Plan: * following accu-checks * glycemic control per hospitalist/signal wirer Will continue to follow. Subjective Date/time seen: 04/11/23 09:50 Interval history: Follow-up for chronic kidney disease. Remains intubated/sedated and on mechanical ventilation; started on vasopressor therapy (levophed and vasopressin) yesterday due to hypotension; renal function as well as LFTs worse by AM labs with noted drop in urine output as well; febrile overnight also. Noted change in code status after fami
--- NOTE | 2023-04-11 09:50 | PM.PNNEP ---
Progress Note: A&P Assessment and Plan (1) GURPREET (acute kidney injury): Code(s): N17.9 - Acute kidney failure, unspecified Status: Acute Assessment and Plan: as noted by trend of labs suspect due to ATN from sepsis, shock, and need for IV diuretics urine output down which is concerning (since she is already volume overloaded) she remains at risk for needed JEWEL SUPERVISOR/dialysis (but given her hemodynamic instability, doubt she tolerate conventional HD) follow trend of repeat labs and UOP (2) Chronic kidney disease, stage 4 (severe): Code(s): N18.4 - Chronic kidney disease, stage 4 (severe) Status: Chronic Assessment and Plan: CKD due to DM, HTN, and vascular disease. baseline creatinine runs ~ 2.0 - 2.5mg/dl in the last year (3) Septic shock: Code(s): A41.9 - Sepsis, unspecified organism; R65.21 - Severe sepsis with septic shock Status: Acute Assessment and Plan: due to cellulitis +/- pneumonia CT imaging noted follow culture data: + blood culture (with Staph aureus) on antibiotics requiring vasopressor support - wean as tolerated (4) Acute respiratory failure: Code(s): J96.00 - Acute respiratory failure, unspecified whether with hypoxia or hypercapnia Status: Acute Assessment and Plan: intubated emergently on arrival to ICU due to impending respiratory failure complicated by volume overload, possible pneumonia, and sepsis continue mechanical ventilation weaning once more stable (5) Acute exacerbation of CHF (congestive heart failure): Qualifiers: Heart failure type: unspecified Qualified Code(s): I50.9 - Heart failure, unspecified Code(s): I50.9 - Heart failure, unspecified Status: Acute Assessment and Plan: exam with edema/anasarca imaging with small pleura effusions echo results noted was on diuretic prior to transfer to ICU - currently on hold due to hypotension resume diuresis when able (6) Atrial fibrillation with RVR: Code(s): I48.91 - Unspecified atrial fibrillation Status: Acute Assessment and Plan: currently on amiodarone gtt not currently on anticoagulation on admission -- unclear reasoning follow telemetry (7) Anemia: Code(s): D64.9 - Anemia, unspecified Status: Acute Assessment and Plan: partly related to CKD and recent hospital admission iron deficiency noted - on venofer follow trend of H/H (8) Encephalopathy: Code(s): G93.40 - Encephalopathy, unspecified Status: Acute Assessment and Plan: difficult to assess at this time (intubated and on mechanical ventilation) however, history noted may need further neuroimaging (9) Type 2 diabetes mellitus with hyperglycemia, with long-term current use of insulin: Code(s): E11.65 - Type 2 diabetes mellitus with hyperglycemia; Z79.4 - correction (current) use of insulin Status: Chronic Assessment and Plan: following accu-checks glycemic control per hospitalist/implementation director Will continue to follow. Subjective Date/time seen: 04/11/23 09:50 Interval history: Follow-up for chronic kidney disease. Remains intubated/sedated and on mechanical ventilation; started on vasopressor therapy (levophed and vasopressin) yesterday due to hypotension; renal function as well as LFTs worse by AM labs with noted drop in urine output as well; febrile overnight also. Noted change in code status after family discussion. Exam Narrative: General: elderly but WD/WN female intubated/sedated and on mechanical ventilation Heart: tachycardic, IRRR, normal S1 and S2; no rub Lungs: coarse breath sounds Abdomen: soft, nontender, nondistended, positive bowel sounds Extremities: no cyanosis or clubbing; 2+ edema Skin: several areas of skin breakdown noted Objective Data Vital Signs Vital Signs: Vital Signs Temp Pulse Resp BP Pulse Ox O2 D
--- NOTE | 2023-04-11 10:16 | PCOTNOTE ---
Pt was transferred to ICU and intubated. Pt is not appropriate for therapy at this time. Please re-order when pt is medically appropriate.
--- NOTE | 2023-04-11 10:39 | PM.IMPN ---
Progress Note: A&P Assessment and Plan (1) Acute respiratory failure: Code(s): J96.00 - Acute respiratory failure, unspecified whether with hypoxia or hypercapnia Status: Acute Assessment and Plan: 04/10: Patient emergently intubated on arrival to ICU, likely related to altered mental status, septic shock, encephalopathy, inability to protect airway -currently on CMV mode of ventilation, peep of 8, 40% FiO2 -ABGs reviewed -chest x-ray this morning showed: Stable small pleural effusions. Stable airspace opacities at the lung bases, consistent with atelectasis versus pneumonia. Cardiomegaly. -sedated with fentanyl and Versed infusion, maintain RASS of 0 to -2 -continue bronchodilators 04/10CT scan of chest, abdomen and pelvis without contrast IMPRESSION: 1. Dependent airspace opacities of the lungs, consistent with atelectasis versus pneumonia. 2. Small pleural effusions. 3. Large hypodense area in the subcutaneous tissues of the right pelvis posteriorly and overlying the left hip which could reflect a soft tissue hematoma. Clinically correlate. (2) Septic shock: Code(s): A41.9 - Sepsis, unspecified organism; R65.21 - Severe sepsis with septic shock Status: Acute Assessment and Plan: -Possibly secondary to cellulitis and pneumonia -Procalcitonin is 3.0 white count is elevated -UA slightly abnormal but does not seem impressive for UTI 04/09: Blood cultures growing Staph aureus 09/08 bottles 04/09: MRSA screen pending 04/10: Pending 04/10: Urine Legionella pneumococcal antigen and mycoplasma IgM ordered and pending CT chest abdomen pelvis as above -Continue empiric vancomycin, Flagyl and cefepime 04/09. (3) Atrial fibrillation with RVR: Code(s): I48.91 - Unspecified atrial fibrillation Status: Acute Assessment and Plan: Patient presented with atrial fibrillation RVR, was on Cardizem infusion but due to hypotension was switched to amiodarone infusion -continue amiodarone infusion, rate controlled, remains in AFib -She was on anticoagulation in the past but it has been on hold from the rehab which appears likely secondary to the bruise that she has on left leg although there is no documentation available. She was discharged on Eliquis from the hospital on 04/02/2023 but on readmission it was not on her medication list from the rehab. -CT scan of the abdomen shows left hip hematoma (4) Acute on chronic renal failure: Code(s): N17.9 - Acute kidney failure, unspecified; N18.9 - Chronic kidney disease, unspecified Status: Acute (5) Congestive heart failure: Code(s): I50.9 - Heart failure, unspecified Status: Acute Assessment and Plan: Patient has history of diastolic dysfunction and ohnx-xo-oijeilto aortic stenosis She has diffuse anasarca which is likely combination of congestive heart failure and chronic kidney disease Will re-attempt diuresis once hemodynamically stable (6) Chronic kidney disease: Qualifiers: Chronic kidney disease stage: stage 4 (severe) Qualified Code(s): N18.4 - Chronic kidney disease, stage 4 (severe) Code(s): N18.9 - Chronic kidney disease, unspecified Status: Acute Assessment and Plan: Patient has history of chronic kidney disease Creatinine appears close to baseline Nephrology is following Patient is volume overloaded. Will re-attempt diuresis once hemodynamically stable Maintain mean arterial pressure with vasopressors (7) Type 2 diabetes mellitus with hyperglycemia, with long-term current use of insulin: Code(s): E11.65 - Type 2 diabetes mellitus with hyperglycemia; Z79.4 - senior care (current) use of insulin Status: Chronic Assessment and Plan: Sliding scale Start tube feeds (8) History of recurrent deep vein thrombosis (DVT): Code(s): Z86.718 - Personal history of other venous thrombosis and embolism Status: Acute Assessment and Plan: As above mention pat
[2023-04-11 11:45] LABS: Mean Platelet Volume 10.5 fl (7.4-10.4); Platelet Count Result 167 k/mm3 (150-375)
[2023-04-11 11:52] LABS: Creatine Kinase 228 U/L (30-135)
[2023-04-11 11:56] LABS: Creatinine Urine 158.4 mg/dL
[2023-04-11 11:56] LABS: INR 1.7; Prothrombin Time 21.4 Seconds (11.1-14.7)
[2023-04-11 11:57] LABS: Fibrinogen 628 mg/dl (215-510); Partial Thromboplastin Time 45.8 SECONDS (22.3-36.8)
[2023-04-11 11:57] LABS: Reflex Lactic Acid Yes or No Add Lactic
[2023-04-11 12:04] LABS: Vancomycin Trough 15.7 ug/mL (10.0-20.0)
[2023-04-11 12:10] LABS: Potassium Urine Random 67.9 meq/L; Sodium Urine Random 19 meq/L
[2023-04-11 12:12] LABS: D Dimer 10.14 ug/mL (<0.48)
[2023-04-11 12:27] LABS: Eosinophil Urine None Seen % (None Seen); Urine Eos QC 2nd Tech Confirmed
[2023-04-11 12:32] LABS: Glucose Point of Care 383 mg/dl (65-105)
[2023-04-11] MEDS: VANCOMYCIN HCL 1,500 MG in SODIUM CHLORIDE 0.9% IV 500 ML 250 MG IVPB (12:50)
--- NOTE | 2023-04-11 13:19 | PHAR ---
CREATININE CLEARANCE REDUCED. CHANGING TO PRN DOSING BY LEVELS (GOAL TROUGH 15-20). 9 1100 LEVEL = 15.7, DOSE GIVEN. WILL CHECK LEVEL 9/ AM LABS.
[2023-04-11] MEDS: NOREPINEPHRINE 8 MG/D5W 250 ML 8 MG/250 ML BAG 56.25 MG IV CONT ×2 (14:05→18:59)
[2023-04-11] MEDS: LACTATED RINGERS 500 ML 999 ML XX (15:19)
[2023-04-11 18:23] LABS: Glucose Point of Care 392 mg/dl (65-105)
[2023-04-11] MEDS: CEFEPIME 2 GM/NS 50 ML 2 GM/50 ML BAG IVPB (21:37)
[2023-04-12] VITALS (62 sets, daily range): BP systolic 80–137; BP diastolic 36–66; PULSE 70–102; RESP 21–28; TEMP 36.6–38.3; O2SAT 88–97
[2023-04-12] MEDS: ALBUMIN HUMAN 25% 25 GM/100 ML 100 ML IVPB ×2 (00:41→06:25)
[2023-04-12] MEDS: INSULIN ASPART (*BKC) 100 UNITS/ML SUB-Q ×4 (00:44→18:32)
[2023-04-12 00:49] LABS: Glucose Point of Care 361 mg/dl (65-105)
[2023-04-12] MEDS: SODIUM BICARBONATE 8.4% 150 MEQ in WATER, STERILE FOR INJECTION 950 ML 50 MEQ IV CONT (00:56)
[2023-04-12] MEDS: ACETAMINOPHEN 325 MG TABLET 650 MG PO (01:36)
[2023-04-12] MEDS: AMIODARONE 360 MG/D5W 200 ML 360 MG/200 ML BAG 16.67 MG IV CONT ×2 (01:37→15:46)
[2023-04-12] MEDS: LEVALBUTEROL NEB 1.25 MG/3 ML 0.63 MG INHALATION ×4 (01:58→20:09)
[2023-04-12 04:00] LABS: Alveolar/Arterial O2 Gradient 166.2 mmHg; Base Excess ABG -4.1 mEq/l (+/-2.0); Fractional Inspired Oxygen 40 %; HCO3 ABG 20.9 mEq/l (22.0-26.0); Methemoglobin ABG 0.4 %THb (0-1.5); Oxygen Content ABG 11.5 %vol (16.0-22.0); Oxygen Saturation ABG 94.7 % (95.0-100.0); Oxyhemoglobin 94.4 % THb (90.0-100.0); PO2 ABG 75.3 mmHg (80.0-100.0); PO2 FiO2 Ratio Arterial Blood 1.88 %; Reduced Hemoglobin 5.2 %THb (0-5.0); Total Hemoglobin 8.6 g/dL (12.0-18.0); pH ABG 7.359 (7.350-7.450)
[2023-04-12 04:01] LABS: Device VENTILATOR; Modified Allen's Test Pass; Site Drawn RIGHT RADIAL
[2023-04-12 04:02] LABS: Arterial Blood Gas PEEP 8 cmH2O; Arterial Blood Gas Tidal Volume 400 ml; Arterial Blood Gas Vent Mode CMV; Arterial Blood Gas Ventilator rate 24 /MIN
[2023-04-12 06:19] LABS: Hematocrit 24.9 % (37.0-47.0); Hemoglobin 7.5 g/dL (12.0-15.0); Mean Corpuscular HGB Conc 30.1 g/dl (32-36); Mean Corpuscular Hemoglobin 31.8 pg (26-34); Mean Corpuscular Volume 105.5 fl (80-100); Platelet Count Result 149 k/mm3 (150-375); Red Blood Count 2.36 M/mm3 (4.2-5.4); White Blood Count 12.2 K/mm3 (4.5-10.0)
[2023-04-12] MEDS: metroNIDAZOLE 500 MG/ISO 100ML 500 MG/100 ML BAG 100 MG IVPB (06:25)
[2023-04-12] MEDS: CENTRAL LINE FLUSH 10 ML IV PUSH ×4 (06:26→20:51)
[2023-04-12 06:34] LABS: Alanine Aminotransferase 96 U/L (6-35); Albumin Level 2.9 g/dL (3.5-5.1); Alkaline Phosphatase 71 U/L (38-126); Anion Gap 18 mmol/L (8-16); Aspartate Amino Transferase 409 U/L (14-36); Bilirubin,Total 3.9 mg/dL (0.2-1.3); Blood Urea Nitrogen 94 mg/dL (7-17); Calcium 6.9 mg/dL (8.4-10.2); Carbon Dioxide 24 mmol/L (22-30); Chloride 92 mmol/L (98-107); Estimated CRCL calculation 15 ml/min; Estimated Glomerular Filt Rate 12; Glucose 311 mg/dL (65-110); Magnesium 1.9 mg/dL (1.6-2.3); Potassium 3.6 mmol/L (3.4-5.0); Sodium 134 mmol/L (137-145)
[2023-04-12 06:49] LABS: Glucose Point of Care 307 mg/dl (65-105)
[2023-04-12] MEDS: VASOPRESSIN INJ 100 UNITS in DEXTROSE 5% 95 ML IV CONT (07:14)
[2023-04-12] MEDS: MIDAZOLAM 100MG/NS 100ML(*CRX) 100 MG/100 ML BAG IV CONT (09:26)
[2023-04-12] MEDS: MULTIVITAMINS THERAPEUTIC TAB (*BKC) 1 TABLET PO (09:28)
[2023-04-12] MEDS: MINERAL OIL/WHITE PETROLATUM OINTMENT 1 APPLIC EACH EYE ×2 (09:28→20:50)
[2023-04-12] MEDS: FLUCONAZOLE 100 MG TABLET FEED TUBE (09:28)
[2023-04-12] MEDS: PANTOPRAZOLE SODIUM IV 40 MG VIAL IV PUSH ×2 (09:28→20:50)
[2023-04-12] MEDS: TOLNAFTATE 1% POWDER 45 GM BTL 1 APPLIC TOPICAL ×2 (09:28→20:50)
[2023-04-12] MEDS: INSULIN GLARGINE (*BKC) 100 UNITS/ML 25 UNITS SUB-Q (09:34)
[2023-04-12] MEDS: IRON SUCROSE COMPLEX 200 MG in SODIUM CHLORIDE 0.9% IV 50 ML 120 MG IVPB (09:35)
--- NOTE | 2023-04-12 10:59 | WPDINTPN ---
Progress Note: A&P Assessment and Plan (1) Acute respiratory failure: Code(s): J96.00 - Acute respiratory failure, unspecified whether with hypoxia or hypercapnia Status: Acute Assessment and Plan: 04/10: Patient emergently intubated on arrival to ICU, likely related to altered mental status, septic shock, encephalopathy, inability to protect airway -currently on CMV mode of ventilation, peep of 8, 40% FiO2 -ABGs reviewed -chest x-ray this morning showed: Worsened moderate-sized pleural effusions.. Worsened diffuse lung disease with a basilar predominance, consistent with atelectasis versus pneumonia versus pulmonary edema.. Cardiomegaly -sedated with fentanyl and Versed infusion, maintain RASS of 0 to -2 -continue bronchodilators -discontinue IV fluids 04/10CT scan of chest, abdomen and pelvis without contrast IMPRESSION: 1. Dependent airspace opacities of the lungs, consistent with atelectasis versus pneumonia. 2. Small pleural effusions. 3. Large hypodense area in the subcutaneous tissues of the right pelvis posteriorly and overlying the left hip which could reflect a soft tissue hematoma. Clinically correlate. (2) Septic shock: Code(s): A41.9 - Sepsis, unspecified organism; R65.21 - Severe sepsis with septic shock Status: Acute Assessment and Plan: -Possibly secondary to cellulitis and pneumonia -Procalcitonin is 3.0 white count is elevated -UA slightly abnormal but does not seem impressive for UTI 04/09: Blood cultures growing methicillin-resistant Staph aureus 09/08 bottles 04/09: MRSA screen negative 04/10: Urine cultures with mixed genital asia CT chest abdomen pelvis as above -Continue empiric vancomycin, Flagyl (per tube) and cefepime 04/09. She did receive dose of doxycycline and Levaquin on admission which has been discontinued (3) Atrial fibrillation with RVR: Code(s): I48.91 - Unspecified atrial fibrillation Status: Acute Assessment and Plan: Patient presented with atrial fibrillation RVR, was on Cardizem infusion but due to hypotension was switched to amiodarone infusion -continue amiodarone infusion, rate controlled, remains in AFib -She was on anticoagulation in the past but it has been on hold from the rehab which appears likely secondary to the bruise that she has on left leg although there is no documentation available. Patient also has a left hip soft tissue hematoma on the CT scan of the abdomen and pelvis - She was discharged on Eliquis from the hospital on 04/02/2023 but on readmission it was not on her medication list from the rehab. -given patient's hematoma, bruising, anemia will hold anticoagulation at this time -continue amiodarone at 0.5 mg/min infusion (4) Acute on chronic renal failure: Code(s): N17.9 - Acute kidney failure, unspecified; N18.9 - Chronic kidney disease, unspecified Status: Acute Assessment and Plan: Patient has a history of 6 stage 4 chronic kidney disease -currently in septic shock, worsening creatinine and likely related to hypotension -low urine output -CT scan of the abdomen and pelvis did not show any hydronephrosis -will obtain CK level, urine eosinophils and urine lytes -WILL START BICARB INFUSION -will also add albumin for intravascular volume expansion due to significant third-spacing likely due to septic shock -nephrology following -patient is at risk of hemodialysis versus CRRT (5) Congestive heart failure: Code(s): I50.9 - Heart failure, unspecified Status: Acute Assessment and Plan: Patient has history of diastolic dysfunction and ilhn-mg-vtoyvbhx aortic stenosis She has diffuse anasarca which is likely combination of congestive heart failure and chronic kidney disease -unable to diurese at this time as patient is on 3 pressors (6) Type 2 diabetes mellitus with hyperglycemia, with long-term current use of insulin: Code(s): E11.65 - Type 2 diabetes mellitus with hyperglycemia; Z79.4 -
--- NOTE | 2023-04-12 11:07 | PCNFU ---
Nutrition Follow-Up Complete: Inadequate Oral Intake as related to mechanical ventilation as evidenced by NPO. Goal: Meet estimated nutritional needs. Patient has limited progress towards goal. We will continue current goal. Pt current nutrition is NPO. Nutrition recommendation: when stable for tube feedings-Vital AF 1.2 goal rate at 50 ml/hr. Last recorded weight is 135 kg, up from 129 kg on admit. Bowel Motility:+BM reported 04/11 Labs Reviewed:Glu 311, BUN 94, Cr 3.5,GFR 12, Na 134, Alb 2.9 Meds Noted: Levophed, Vasopressin, Fentanyl, Versed, Lantus. Skin:Venous Status-left lower leg. Additional Notes: Patient remains on mechanical ventilator. Remains on pressors. No nutrition at this time. Patient was made DNR. Plans for discussions with family regarding plan of care. Will monitor weight, labs, oral intake, skin, tube feeding tolerance every Monday and Monday.
--- NOTE | 2023-04-12 12:13 | P.PNNP_ITS ---
Progress Note: A&P Assessment and Plan (1) GURPREET (acute kidney injury): Code(s): N17.9 - Acute kidney failure, unspecified Status: Acute Assessment and Plan: * as noted by trend of labs * suspect due to ATN from sepsis/infection and shock/hemodyamics instability * urine output down which is concerning (since she is already volume overloaded) * she remains at risk for needing ELECTRICAL PARTS RECONDITIONER/dialysis (but given her hemodynamic instability, doubt she would tolerate conventional hemodialysis) * follow trend of repeat labs and UOP (2) Chronic kidney disease, stage 4 (severe): Code(s): N18.4 - Chronic kidney disease, stage 4 (severe) Status: Chronic Assessment and Plan: * CKD due to DM, HTN, and vascular disease. * baseline creatinine runs ~ 2.0 - 2.5mg/dl in the last year (3) Septic shock: Code(s): A41.9 - Sepsis, unspecified organism; R65.21 - Severe sepsis with septic shock Status: Acute Assessment and Plan: * due to cellulitis +/- pneumonia * CT imaging noted * follow culture data: * blood culture with MRSA * on antibiotics * requiring vasopressor support - wean as tolerated (4) Acute respiratory failure: Code(s): J96.00 - Acute respiratory failure, unspecified whether with hypoxia or hypercapnia Status: Acute Assessment and Plan: * intubated emergently on arrival to ICU due to impending respiratory failure * complicated by volume overload, possible pneumonia, and sepsis * continue mechanical ventilation * weaning once more stable (5) Acute exacerbation of CHF (congestive heart failure): Qualifiers: Heart failure type: unspecified Qualified Code(s): I50.9 - Heart failure, unspecified Code(s): I50.9 - Heart failure, unspecified Status: Acute Assessment and Plan: * exam with edema/anasarca * imaging with small pleura effusions * echo results noted * was on diuretic prior to transfer to ICU - currently on hold due to hypotension * resume diuresis when able (6) Atrial fibrillation with RVR: Code(s): I48.91 - Unspecified atrial fibrillation Status: Acute Assessment and Plan: * currently on amiodarone gtt * not currently on anticoagulation on admission -- unclear reasoning * follow telemetry (7) Anemia: Code(s): D64.9 - Anemia, unspecified Status: Acute Assessment and Plan: * partly related to CKD and recent hospital admission * iron deficiency noted as well * holding further venofer given bacteremia/infection * follow trend of H/H (8) Encephalopathy: Code(s): G93.40 - Encephalopathy, unspecified Status: Acute Assessment and Plan: * difficult to assess at this time (intubated and on mechanical ventilation) * however, history noted * may need further neuroimaging when more stable (9) Type 2 diabetes mellitus with hyperglycemia, with long-term current use of insulin: Code(s): E11.65 - Type 2 diabetes mellitus with hyperglycemia; Z79.4 - prison (current) use of insulin Status: Chronic Assessment and Plan: * following accu-checks * glycemic control per hospitalist/computer numerical control operator Poor prognosis given multisystem organ failure as noted above - Dr. Loya has already discussed this with family and code status changed to DNRs; as already mentioned, her renal function continues to deteriorate and she may need ELECTRICAL PARTS RECONDITIONER/dialysis but she would likely need CRRT given her hemodynamic instability. Discussed case with Dr. Loya. Sukh hager
--- NOTE | 2023-04-12 12:13 | PM.PNNEP ---
Progress Note: A&P Assessment and Plan (1) GURPREET (acute kidney injury): Code(s): N17.9 - Acute kidney failure, unspecified Status: Acute Assessment and Plan: as noted by trend of labs suspect due to ATN from sepsis/infection and shock/hemodyamics instability urine output down which is concerning (since she is already volume overloaded) she remains at risk for needing RESTORATIVE CARE TECHNICIAN/dialysis (but given her hemodynamic instability, doubt she would tolerate conventional hemodialysis) follow trend of repeat labs and UOP (2) Chronic kidney disease, stage 4 (severe): Code(s): N18.4 - Chronic kidney disease, stage 4 (severe) Status: Chronic Assessment and Plan: CKD due to DM, HTN, and vascular disease. baseline creatinine runs ~ 2.0 - 2.5mg/dl in the last year (3) Septic shock: Code(s): A41.9 - Sepsis, unspecified organism; R65.21 - Severe sepsis with septic shock Status: Acute Assessment and Plan: due to cellulitis +/- pneumonia CT imaging noted follow culture data: blood culture with MRSA on antibiotics requiring vasopressor support - wean as tolerated (4) Acute respiratory failure: Code(s): J96.00 - Acute respiratory failure, unspecified whether with hypoxia or hypercapnia Status: Acute Assessment and Plan: intubated emergently on arrival to ICU due to impending respiratory failure complicated by volume overload, possible pneumonia, and sepsis continue mechanical ventilation weaning once more stable (5) Acute exacerbation of CHF (congestive heart failure): Qualifiers: Heart failure type: unspecified Qualified Code(s): I50.9 - Heart failure, unspecified Code(s): I50.9 - Heart failure, unspecified Status: Acute Assessment and Plan: exam with edema/anasarca imaging with small pleura effusions echo results noted was on diuretic prior to transfer to ICU - currently on hold due to hypotension resume diuresis when able (6) Atrial fibrillation with RVR: Code(s): I48.91 - Unspecified atrial fibrillation Status: Acute Assessment and Plan: currently on amiodarone gtt not currently on anticoagulation on admission -- unclear reasoning follow telemetry (7) Anemia: Code(s): D64.9 - Anemia, unspecified Status: Acute Assessment and Plan: partly related to CKD and recent hospital admission iron deficiency noted as well holding further venofer given bacteremia/infection follow trend of H/H (8) Encephalopathy: Code(s): G93.40 - Encephalopathy, unspecified Status: Acute Assessment and Plan: difficult to assess at this time (intubated and on mechanical ventilation) however, history noted may need further neuroimaging when more stable (9) Type 2 diabetes mellitus with hyperglycemia, with long-term current use of insulin: Code(s): E11.65 - Type 2 diabetes mellitus with hyperglycemia; Z79.4 - residential (current) use of insulin Status: Chronic Assessment and Plan: following accu-checks glycemic control per hospitalist/crew caller Poor prognosis given multisystem organ failure as noted above - Dr. Loya has already discussed this with family and code status changed to DNRs; as already mentioned, her renal function continues to deteriorate and she may need RESTORATIVE CARE TECHNICIAN/dialysis but she would likely need CRRT given her hemodynamic instability. Discussed case with Dr. Loya. Will continue to follow. Subjective Date/time seen: 04/12/23 12:13 Interval history: Follow-up for acute kidney injury/acute renal failure on chronic kidney disease. No real change in clinical condition -- remains on vasopressor therapy to maintain MAP as well as intubated/sedated and on mechanical ventilation; worsening renal function noted as well as LFTs trending up; continues to fever spikes in the last 24 hours. Exam Narrative: General
[2023-04-12] MEDS: FENTANYL 2,500MCG/NS250ML(*CRX 2,500 MCG/250 ML BAG IV CONT (13:18)
--- NOTE | 2023-04-12 13:25 | PM.IMPN ---
Progress Note: A&P Assessment and Plan (1) Acute respiratory failure: Code(s): J96.00 - Acute respiratory failure, unspecified whether with hypoxia or hypercapnia Status: Acute Assessment and Plan: 04/10: Patient emergently intubated on arrival to ICU, likely related to altered mental status, septic shock, encephalopathy, inability to protect airway -currently on CMV mode of ventilation, peep of 8, 40% FiO2 -ABGs reviewed -chest x-ray this morning showed: Stable small pleural effusions. Stable airspace opacities at the lung bases, consistent with atelectasis versus pneumonia. Cardiomegaly. -sedated with fentanyl and Versed infusion, maintain RASS of 0 to -2 -continue bronchodilators 04/10CT scan of chest, abdomen and pelvis without contrast IMPRESSION: 1. Dependent airspace opacities of the lungs, consistent with atelectasis versus pneumonia. 2. Small pleural effusions. 3. Large hypodense area in the subcutaneous tissues of the right pelvis posteriorly and overlying the left hip which could reflect a soft tissue hematoma. Clinically correlate. (2) Septic shock: Code(s): A41.9 - Sepsis, unspecified organism; R65.21 - Severe sepsis with septic shock Status: Acute Assessment and Plan: -Possibly secondary to cellulitis and pneumonia -Procalcitonin is 3.0 white count is elevated -UA slightly abnormal but does not seem impressive for UTI 04/09: Blood cultures growing Staph aureus 09/08 bottles 04/09: MRSA screen pending 04/10: Pending 04/10: Urine Legionella pneumococcal antigen and mycoplasma IgM ordered and pending CT chest abdomen pelvis as above -Continue empiric vancomycin, Flagyl and cefepime 04/09. (3) Atrial fibrillation with RVR: Code(s): I48.91 - Unspecified atrial fibrillation Status: Acute Assessment and Plan: Patient presented with atrial fibrillation RVR, was on Cardizem infusion but due to hypotension was switched to amiodarone infusion -continue amiodarone infusion, rate controlled, remains in AFib -She was on anticoagulation in the past but it has been on hold from the rehab which appears likely secondary to the bruise that she has on left leg although there is no documentation available. She was discharged on Eliquis from the hospital on 04/02/2023 but on readmission it was not on her medication list from the rehab. -CT scan of the abdomen shows left hip hematoma (4) Acute on chronic renal failure: Code(s): N17.9 - Acute kidney failure, unspecified; N18.9 - Chronic kidney disease, unspecified Status: Acute Assessment and Plan: pt is on sodium bicarbonate drip continue to watch kidney function and uo (5) Congestive heart failure: Code(s): I50.9 - Heart failure, unspecified Status: Acute Assessment and Plan: Patient has history of diastolic dysfunction and mjys-yb-bqldbeck aortic stenosis She has diffuse anasarca which is likely combination of congestive heart failure and chronic kidney disease Will re-attempt diuresis once hemodynamically stable (6) Chronic kidney disease: Qualifiers: Chronic kidney disease stage: stage 4 (severe) Qualified Code(s): N18.4 - Chronic kidney disease, stage 4 (severe) Code(s): N18.9 - Chronic kidney disease, unspecified Status: Acute Assessment and Plan: Patient has history of chronic kidney disease Creatinine appears close to baseline Nephrology is following Patient is volume overloaded. Will re-attempt diuresis once hemodynamically stable Maintain mean arterial pressure with vasopressors (7) Type 2 diabetes mellitus with hyperglycemia, with long-term current use of insulin: Code(s): E11.65 - Type 2 diabetes mellitus with hyperglycemia; Z79.4 - section plotter operator (current) use of insulin Status: Chronic Assessment and Plan: Sliding scale Start tube feeds (8) History of recurrent deep vein thrombosis (DVT): Code(s): Z86.718 - Personal history of
[2023-04-12 13:36] LABS: Glucose Point of Care 302 mg/dl (65-105)
[2023-04-12] MEDS: metroNIDAZOLE 250 MG TABLET 500 MG PO ×2 (15:45→20:52)
[2023-04-12 18:57] LABS: Glucose Point of Care 275 mg/dl (65-105)
[2023-04-12] MEDS: CEFEPIME 2 GM/NS 50 ML 2 GM/50 ML BAG IVPB (20:53)
[2023-04-13] VITALS (30 sets, daily range): BP systolic 102–138; BP diastolic 44–58; PULSE 68–89; RESP 19–30; TEMP 37.2–37.5; O2SAT 92–95
[2023-04-13 00:18] LABS: Glucose Point of Care 230 mg/dl (65-105)
[2023-04-13] MEDS: INSULIN ASPART (*BKC) 100 UNITS/ML SUB-Q ×3 (00:19→12:10)
[2023-04-13] MEDS: AMIODARONE 360 MG/D5W 200 ML 360 MG/200 ML BAG 16.67 MG IV CONT (02:43)
[2023-04-13] MEDS: LEVALBUTEROL NEB 1.25 MG/3 ML 0.63 MG INHALATION ×3 (02:44→14:21)
[2023-04-13] MEDS: CENTRAL LINE FLUSH 10 ML IV PUSH (05:04)
[2023-04-13 05:29] LABS: Alanine Aminotransferase 73 U/L (6-35); Albumin Level 2.9 g/dL (3.5-5.1); Alkaline Phosphatase 80 U/L (38-126); Anion Gap 17 mmol/L (8-16); Aspartate Amino Transferase 147 U/L (14-36); Bilirubin,Total 4.5 mg/dL (0.2-1.3); Blood Urea Nitrogen 103 mg/dL (7-17); Calcium 7.1 mg/dL (8.4-10.2); Carbon Dioxide 23 mmol/L (22-30); Chloride 91 mmol/L (98-107); Estimated CRCL calculation 13 ml/min; Estimated Glomerular Filt Rate 10; Glucose 215 mg/dL (65-110); Magnesium 1.9 mg/dL (1.6-2.3); Phosphorus 5.1 mg/dL (2.5-4.5); Potassium 3.8 mmol/L (3.4-5.0); Sodium 131 mmol/L (137-145)
[2023-04-13 05:33] LABS: Basophils Absolute Auto 0.1 K/mm3 (0.0-0.1); Basophils Percent Auto 0.6 % (0.2-1.2); Eosinophils Absolute Auto 0.6 K/mm3 (0-0.3); Eosinophils Percent Auto 3.6 % (0-4.4); Hematocrit 26.8 % (37.0-47.0); Hemoglobin 8.3 g/dL (12.0-15.0); Immature Granulocyte Absolute 0.68 K/mm3 (0.00-0.031); Lymphocytes Absolute Auto 1.21 K/mm3 (0.9-3.2); Lymphocytes Percent Auto 7.1 % (18.3-44.2); Mean Corpuscular Hemoglobin 31.8 pg (26-34); Mean Corpuscular Volume 102.7 fl (80-100); Mean Platelet Volume 11.9 fl (7.4-10.4); Monocytes Absolute Auto 0.6 K/mm3 (0.1-0.6); Monocytes Percent Auto 3.5 % (2.6-8.5); Neutrophils Absolute Auto 13.7 K/mm3 (1.3-6.7); Neutrophils Percent Auto 81.2 % (45.5-73.1); Nucleated Red Blood Cells Absolute Auto 0.1 K/mm3 (0.0-0.012); Nucleated Red Blood Cells Perc 0.8 % (0.0-0.2); Platelet Count Result 139 k/mm3 (150-375); Red Blood Count 2.61 M/mm3 (4.2-5.4); Red Cell Distribution Width 15.1 % (11.5-14.5); White Blood Count 16.9 K/mm3 (4.5-10.0)
[2023-04-13 05:43] LABS: Vancomycin Random 22.9 ug/mL (10-20)
[2023-04-13 05:58] LABS: Anisocytosis 1+ (NORMAL); Atypical Lymphocytes Present; Burr Cells 1+ (NORMAL); Platelet Estimate Decreased (Adequate); Schistocytes None Seen (NORMAL)
[2023-04-13] MEDS: metroNIDAZOLE 250 MG TABLET 500 MG PO (06:36)
[2023-04-13] MEDS: FLUCONAZOLE 100 MG TABLET FEED TUBE (08:25)
[2023-04-13] MEDS: PANTOPRAZOLE SODIUM IV 40 MG VIAL IV PUSH (08:28)
[2023-04-13] MEDS: INSULIN GLARGINE (*BKC) 100 UNITS/ML 37 UNITS SUB-Q (08:31)
[2023-04-13] MEDS: MINERAL OIL/WHITE PETROLATUM OINTMENT 1 APPLIC EACH EYE (08:32)
[2023-04-13] MEDS: TOLNAFTATE 1% POWDER 45 GM BTL 1 APPLIC TOPICAL (08:32)
[2023-04-13 08:39] LABS: Lactic Acid Reflex 3.3 mmol/L (0.7-2.0)
--- NOTE | 2023-04-13 10:55 | PCFNICU ---
ICU Rounding Note: Pt current nutrition is Vital AF 1.2 Last recorded weight is 135.6 kg, up from 129 kg on admit Bowel Motility:+Bm reported 04/12 Labs Reviewed: Glu 215, GFR 10, BUN 103, Cr 4.2, Na 131 Meds Noted:Lantus, Levophed, Flagyl, Vancomycin Skin: WNL Additional Notes: Patient remains on mechanical vent. Sedation is off at this time. Plans for trickle feedings today of Vital AF 1.2 at 10 ml/hr. Discussions with family continue regarding plan of care of patient. If aggressive care wishes to remain would recommend goal rate of tube feedings at 50 ml/hr. Following daily in ICU rounds. Will monitor weight, labs, skin, tube feeding tolerance every Monday and Monday.
[2023-04-13 11:23] LABS: Reflex Lactic Acid Yes or No Add Lactic
--- NOTE | 2023-04-13 11:38 | WPDINTPN ---
Progress Note: A&P Assessment and Plan (1) Acute respiratory failure: Code(s): J96.00 - Acute respiratory failure, unspecified whether with hypoxia or hypercapnia Status: Acute Assessment and Plan: 04/10: Patient emergently intubated on arrival to ICU, likely related to altered mental status, septic shock, encephalopathy, inability to protect airway -currently on CMV mode of ventilation, peep of 8, 40% FiO2 -ABGs reviewed -chest x-ray this morning showed: Mild pulmonary edema pattern with minimal pleural effusions. -sedated with fentanyl and Versed infusion, maintain RASS of 0 to -2 -continue bronchodilators -has been off IV fluids due to edema anasarca 04/10CT scan of chest, abdomen and pelvis without contrast IMPRESSION: 1. Dependent airspace opacities of the lungs, consistent with atelectasis versus pneumonia. 2. Small pleural effusions. 3. Large hypodense area in the subcutaneous tissues of the right pelvis posteriorly and overlying the left hip which could reflect a soft tissue hematoma. Clinically correlate. (2) Septic shock: Code(s): A41.9 - Sepsis, unspecified organism; R65.21 - Severe sepsis with septic shock Status: Acute Assessment and Plan: -Possibly secondary to cellulitis and pneumonia -Procalcitonin is 3.0 white count is elevated -UA slightly abnormal but does not seem impressive for UTI -continue Levophed, maintain mean arterial pressures > 65 mmHg, -off vasopressin 04/13/2023 -off phenylephrine on 04/12/202304/09: Blood cultures growing methicillin-resistant Staph aureus 09/08 bottles 04/09: MRSA screen negative 04/10: Urine cultures with mixed genital asia 04/12: Repeat blood cultures growing Gram-positive cocci in clusters CT chest abdomen pelvis as above -Continue empiric vancomycin, Flagyl (per tube) and cefepime 04/09. She did receive dose of doxycycline and Levaquin on admission which has been discontinued (3) Atrial fibrillation with RVR: Code(s): I48.91 - Unspecified atrial fibrillation Status: Acute Assessment and Plan: Patient presented with atrial fibrillation RVR, was on Cardizem infusion but due to hypotension was switched to amiodarone infusion -continue amiodarone infusion, rate controlled, remains in AFib -She was on anticoagulation in the past but it has been on hold from the rehab which appears likely secondary to the bruise that she has on left leg although there is no documentation available. Patient also has a left hip soft tissue hematoma on the CT scan of the abdomen and pelvis - She was discharged on Eliquis from the hospital on 04/02/2023 but on readmission it was not on her medication list from the rehab. -given patient's hematoma, bruising, anemia will hold anticoagulation at this time -continue amiodarone at 0.5 mg/min infusion (4) Acute on chronic renal failure: Code(s): N17.9 - Acute kidney failure, unspecified; N18.9 - Chronic kidney disease, unspecified Status: Acute Assessment and Plan: Patient has a history of stage 4 chronic kidney disease -currently in septic shock, worsening creatinine and likely related to hypotension -low urine output -CT scan of the abdomen and pelvis did not show any hydronephrosis -off all IV fluids -status post albumin -nephrology following -patient is at risk of hemodialysis versus CRRT (5) Congestive heart failure: Code(s): I50.9 - Heart failure, unspecified Status: Acute Assessment and Plan: Patient has history of diastolic dysfunction and pgki-fm-hyoleijn aortic stenosis She has diffuse anasarca which is likely combination of congestive heart failure and chronic kidney disease -currently on high-dose Levophed (6) Type 2 diabetes mellitus with hyperglycemia, with long-term current use of insulin: Code(s): E11.65 - Type 2 diabetes mellitus with hyperglycemia; 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
[2023-04-13 11:59] LABS: Glucose Point of Care 216 mg/dl (65-105)
[2023-04-13 12:36] LABS: Lactic Acid 3.7 mmol/L (0.7-2.0)
[2023-04-13] MEDS: LORazepam INJ (*CRX) 2 MG/ML VIAL IV PUSH (14:12)
[2023-04-13] MEDS: MORPHINE SULFATE INJ (*CRX) 10 MG/ML AMP 5 MG IV PUSH (14:12)
--- NOTE | 2023-04-13 14:20 | PCRCNOTE ---
Per Dr. Loya pt terminally extubated to room air at 1415. RN and RT student at bedside.
--- NOTE | 2023-04-13 16:42 | PM.DDS ---
Discharge Summary Date and Time Date of : 04/13/23 Time of : 15:00 Provider Pronounced By: Pamela RN and Mary Kate RN Probable Cause of Probable Cause of : Septic shock Pneumonia Cellulitis Bacteremia Summary Hospital Course: Patient presented with chief complaint of shortness of breath. Recently discharged after management of rhabdomyolysis. She removed it to be in AFib with RVR lactic acid was elevated she was diagnosed with sepsis and was admitted to step-down unit was started on broad-spectrum antibiotics. She was subsequently transferred to ICU due to septic shock and respiratory distress. She was intubated and was placed on mechanical ventilation. She required IV pressors for septic shock. See also subsequent about acute renal failure and Nephrology was consulted. After discussed with the family comfort measures were implemented and she was extubated to comfort. She subsequently . Additional Data Confirmation of as documented by pronouncing clinician: Pupillary Reflex, Palpable Pulses, Response to Stimuli, Heart Tones and Breath Sounds Name of Provider Notified: Dr. 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
[2023-04-14 07:55] LABS: Legionella pneumophila Ag Ur Not Detected
[2023-04-14 07:56] LABS: Pneumococcal Antigen Urine Not Detected
[2023-04-14 13:15] LABS: Chloride Rand Ur <20 mmol/L (32-290); Creatinine Random Urine 136 mg/dL (20-275)
== END 2023-04-13 15:00 | disposition expired | DRG 871 ==
LOC: ANHED 16:00 → ANHIMU 18:44 → ANH2MED 04-08 18:54 → ANHIMU 04-09 23:49 → ANHICU 04-10 09:42
PROVIDERS: Hospitalist; Internal Medicine; Internal Medicine Nephrology; Physician Assistant; Student in an Organized Health Care Education/Training Program; Admitting Provider Hospitalist; Emergency Provider Student in an Organized Health Care Education/Training Program; PCP Family Medicine; Visit Provider Internal Medicine
DX: A41.02 Sepsis due to Methicillin resistant Staphylococcus aureus (principal); G93.41 Metabolic encephalopathy; I50.33 Acute on chronic diastolic (congestive) heart failure; J18.9 Pneumonia, unspecified organism; J96.00 Acute respiratory failure, unspecified whether with hypoxia or hypercapnia; R65.21 Severe sepsis with septic shock; I13.0 Hypertensive heart and chronic kidney disease with heart failure and stage 1 through stage 4 chronic kidney disease, or unspecified chronic kidney disease; N18.4 Chronic kidney disease, stage 4 (severe); N17.9 Acute kidney failure, unspecified; D63.1 Anemia in chronic kidney disease; E11.22 Type 2 diabetes mellitus with diabetic chronic kidney disease; E11.65 Type 2 diabetes mellitus with hyperglycemia; E11.51 Type 2 diabetes mellitus with diabetic peripheral angiopathy without gangrene; E78.5 Hyperlipidemia, unspecified; E87.5 Hyperkalemia; G47.33 Obstructive sleep apnea (adult) (pediatric); G47.00 Insomnia, unspecified; G89.29 Other chronic pain; I48.91 Unspecified atrial fibrillation; I35.0 Nonrheumatic aortic (valve) stenosis; I25.10 Atherosclerotic heart disease of native coronary artery without angina pectoris; M47.816 Spondylosis without myelopathy or radiculopathy, lumbar region; S80.12XA Contusion of left lower leg, initial encounter; S70.01XA Contusion of right hip, initial encounter; X58.XXXA Exposure to other specified factors, initial encounter; Z20.822 Contact with and (suspected) exposure to COVID-19; Z79.4 Long term (current) use of insulin; Z79.85 Long-term (current) use of injectable non-insulin antidiabetic drugs; Z79.01 Long term (current) use of anticoagulants; Z90.49 Acquired absence of other specified parts of digestive tract; Z90.710 Acquired absence of both cervix and uterus; Z96.653 Presence of artificial knee joint, bilateral; Z96.611 Presence of right artificial shoulder joint; Z95.5 Presence of coronary angioplasty implant and graft; Z86.718 Personal history of other venous thrombosis and embolism; Z85.828 Personal history of other malignant neoplasm of skin; Z86.16 Personal history of COVID-19; Z66 Do not resuscitate
CPT/HCPCS: 31500; 36415; 36569; 36600; 70450; 71045; 71046; 71250; 74176; 80048; 80053; 80069; 80202; 81001; 82140; 82375; 82436; 82550; 82570; 82728; 82805; 82948; 83050; 83540; 83550; 83605; 83735; 83880; 84100; 84132; 84133; 84145; 84300; 84443; 84484; 85025; 85027; 85046; 85049; 85380; 85384; 85610; 85730; 85999; 86140; 87040; 87077; 87081; 87086; 87088; 87147; 87186; 87449; 87581; 87636; 87899; 93005; 93306; 93970; 93971; 94002; 94003; 94640; 96365; 96366; 96367; 96374; 96375; 96376; 97161; 97166; 99285; A9270; C1751; C9113; G0378; J0282; J0692; J1650; J1756; J1815; J1836; J1940; J2060; J2250; J2270; J2371; J3010; J3370; J3475; J7030; J7040; J7050; J7060; J7120; P9045; P9047